=== PATIENT | female | born 2005 | race Caucasian/White ===

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

== ENCOUNTER 2025-01-22 19:11 | Emergency (ER) | payer BC, SELFPAY ==
[2025-01-22 19:12] VITALS: BP 144/90; PULSE 107; RESP 18; TEMP 36.2; O2SAT 99; BMI 35.8
[2025-01-22 21:39] VITALS: BP 152/94; PULSE 93; RESP 18; O2SAT 100
--- NOTE | 2025-01-22 21:55 | CT_ITS ---
PROCEDURE: ABDOMEN/PELVIS W IV CONT ONLY 01/22/2025 REASON FOR EXAM: CONSTIPATION, BRIGHT RED BLOOD PER RECTUM TECHNIQUE: Procedure Code: [id number] Modality: CT Procedure: ABDOMEN/PELVIS W IV CONT ONLY Coronal and Sagittal reconstruction series were provided. CONTRAST: VOLUME: mL One or more dose reduction techniques were used (e.g., Automated exposure control, adjustment of the mA and/or kV according to patient size, use of iterative reconstruction technique. FINDINGS: The visualized lung bases are clear. The liver, gallbladder, pancreas, spleen, adrenal glands, kidneys, and urinary bladder appear unremarkable. The uterus is fluid-filled. Please correlate with the patient's menstrual cycle. A round cystic structure measuring 2.1 cm is noted in the left adnexa, likely an ovarian cyst. Moderate amount of stool within the colon. Fluid levels within the ascending and transverse colon could represent a diarrheal illness. No evidence of a bowel obstruction. No bowel wall thickening. The appendix is visualized and unremarkable. No intraperitoneal free air or free fluid. No abdominal nor pelvic lymphadenopathy. No acute osseous abnormality. No acute fracture. CT/Abdomen/Pelvis W IV Cont ONLY IMPRESSION: 1. Probable left ovarian cyst measuring 2.1 cm. 2. Moderate amount of stool within the colon. Fluid levels within the ascendi ng and transverse colon could represent a diarrheal illness. Reading Location: [id number]
--- NOTE | 2025-01-22 21:59 | EX.ED.DYSGE1 ---
HPI History of Present Illness Chief Complaint: GI Bleed Narrative Narrative: Chief complaint and HPI: 19-year-old female with past medical history of migraines presents for evaluation of bright red blood per rectum and constipation. Patient states on Tuesday and Tuesday she had bright red blood in her bowel movement. States she has not had a bowel movement since Tuesday. This is abnormal for her. She denies any history of constipation. Denies any history of IBS or inflammatory bowel disease. States she has some abdominal pain. She denies any fever, chills, shortness of breath, vomiting, dysuria. Regular menstrual cycles. Does not believe herself to be . States she took that citrate today without any bowel movement. Denies history of abdominal surgeries. Denies daily ibuprofen use. Denies history of ulcers. Review of systems: See HPI Medications: As listed on the chart Allergies: As listed on the chart PFSH: Per chart Vital signs: As listed on the chart. Reviewed. Physical exam: Gen: A&O x3, NAD Head: Normocephalic, atraumatic Eyes: No sclera icterus, conjunctiva clear ENT: Moist mucous membranes CV: RRR, no murmurs Resp: Lungs CTA BL, no w/r/c GI: Abd soft, non-distended, non-tender, no r/r/g Rectal: Normal external examination. No evidence of hemorrhoids or fissures. Normal tone and sensation. No masses, fluctuance, or tenderness. No pain out of proportion. Stool brown on gloved finger. No stool impaction felt. Musc: Full ROM, no deformity Skin: Warm, dry Neuro: Alert, oriented, grossly intact, sensation intact Psych: Cooperative, appropriate mood and affect [facility] Medical History (Updated 01/23/25 @ 00:[address] Aquilino Partida, DO) Migraine Home Medications ?Medication ?Instructions ?Recorded ?Last Taken ?Type escitalopram oxalate 20 mg tablet 20 mg PO DAILY 01/22/25 Unknown History fremanezumab-vfrm 225 mg/1.5 mL 225 mg subcut .monthly 01/22/25 Unknown History subcutaneous auto-injector (Ajovy) topiramate 100 mg tablet 100 mg PO QHS 01/22/25 Unknown History Allergy/AdvReac Type Severity Reaction Status Date / Time No Known Allergies Allergy Verified 01/22/25 19:12 Social History Smoking Status: Never smoker EXAM Physical Exam Const Vital Signs: 01/22/25 19:12 01/22/25 21:39 01/22/25 23:00 Temperature 97.2 F L Temperature Source Temporal Pulse Rate 107 H 93 90 Respiratory Rate 18 18 18 Blood Pressure 144/90 H 152/94 H Blood Pressure Mean 108 113 Pulse Ox 99 100 98 Oxygen Delivery Method Room Air Room Air MDM MDM MDM Narrative Medical decision making narrative: 19-year-old female with past medical history of migraines presents for evaluation of bright red blood per rectum and constipation. Patient states on Tuesday and Tuesday she had bright red blood in her bowel movement. She has been constipated since Tuesday. Mild abdominal pain. Differential diagnosis includes but is not limited to constipation, hemorrhoidal bleeding, diverticulitis, other intra-abdominal pathology. NS bolus ordered. Labs ordered with CT abdomen and pelvis. CBC unremarkable. CMP unremarkable. Lactic acid unremarkable. Lipase unremarkable. Serum negative. UA has bacteria however this is not a clean sample. Patient not endorsing any dysuria. Will send for culture but not treat at this time. Stool occult negative. CT abdomen pelvis pending at this time. Patient signed out to oncoming ED provider. Final disposition pending CT abdomen pelvis results. Impression: 1. Constipation 2. Reported bright red blood per rectum 3. Abdominal pain Lab Data Labs: Laboratory Results - last 24 hr 01/22/25 01/22/25 22:08 23:10 WBC 7.7 RBC 4.47 Hgb 13.0 Hct 39.6 MCV 88.6 MCH 29.1 MCHC 32.8 RDW Std Deviation 42.1 RDW Coeff of Sushma 13.0 Plt Count 415 MPV 9.0 Immature Gran % (Auto) 0.300 Neut % (Auto) 50.9 Lymph % (Auto) 38.1 [place] % (Auto) 8.7 Eos % (Auto) 1.3 Baso % (Auto) 0.7 Absolute Neuts (auto) 3.9 Absolute Lymphs (auto) 2.93 Nucleated RBC % 0 Sodium 141 Potassium 3.8 Chloride 109 H Carbon Dioxide 21.4 Anion Gap 11 BUN 9 Creatinine 0.66 L Estim Creat Clear Calc 186.93 Est GFR (MDRD) Non-Af 130 BUN/Creatinine Ratio 13.9 Glucose 107 H Lactic Acid < 1.0 Calcium 9.5 Total Bilirubin 0.16 AST 20 ALT 21 Alkaline Phosphatase 83 Total Protein 7.5 Albumin 4.4 Globulin 3.1 Albumin/Globulin Ratio 1.4 Lipase 38 Serum , Qual NEGATIVE Urine Color Yellow Urine Clarity Clear Urine pH 6.0 Ur Specific [place] 1.025 Urine Protein 30 H Urine Glucose (UA) Normal Urine Ketones Negative Urine Occult Blood Negative Urine Nitrite Negative Urine Bilirubin Negative Urine Urobilinogen Normal Ur Leukocyte Esterase 100 H Urine RBC 0 SEEN Urine WBC 5-10 SEEN Ur Squamous Epith Cells 5-10 SEEN Ur Transition Epith Cell 0-5 SEEN Urine Bacteria 1+ Urine Mucus 1+ Discharge Plan Triage Chief Complaint: GI Bleed ED Provider: Aquilino Partida Dx/Rx/DC Orders Clinical Impression: Constipation Instructions: ED Constipation (Adult) Prescriptions: No Action escitalopram oxalate 20 mg tablet 20 mg PO DAILY Ajovy Autoinjector 225 mg/1.5 mL auto-injector 225 mg SUBCUT .monthly Patient Comments: [NO ORIGINAL SIG] topiramate 100 mg tablet 100 mg PO QHS Primary Care Provider: Care Physician,No Primary Referrals: Aubree Stoll MD [Non-Staff, Pediatrics] - 3-5 Days Activity Restrictions/Additional Instructions: Follow-up with primary care physician. Recommend [id number] MiraLAX for constipation. Print Language: Romansh Disposition Disposition: Home, Self Care
--- OUTSIDE RECORDS SUMMARY | 2025-01-22 22:05 | XMS RPT_ITS | CCD ---
Author Organization [facility] Care Team Providers [employer] Interpreter Name Role Phone Enoc Foss MD Primary Care Provider Crow Patrick Referring Unavailable Crow Patrick Attending Unavailable Aubree Stoll Primary Care Unavailable Enoc Foss MD Primary Care Provider Yari Dowling MD Primary Care Provider Nitesh YATES, Yari Primary Care Provider Yari Dowling MD Primary Care Prov ider TYESHA FRIEDMAN Attending Unavailable MARLENENTYARI OLIVER Primary Care Unav ailable TYESHA FRIEDMAN Attending Unavailable TYESHA FRIEDMAN Referring Unavailable MCINTURF, YARI CABELLO Primary Care Unav ailable ROGER AUGUST Attending Unavailable SELF Referring Unavailable MCINTURF, YARI CABELLO Primary Care Unav ailable SELF Referring Unavailable MARLENENTMELODY, YARI CABELLO Primary Care Unav ailable DEL MARIE Attending Unavailable TYESHA FRIEDMAN Referring Unavailable MCINTURF, YARI CABELLO Primary Care Unav ailable GORDON TARIQ MD Admitting Unavailable GORDON TARIQ MD Attending Unavailable GORDON TARIQ MD Primary Care Unavailable NO, DOCTOR ON Consulting Unavailable BAYRON CHANEY Admitting Unavailable BAYRON CHANEY Attending Unavailable BAYRON CHANEY Primary Care Unavailable Allergies Allergy Classification Reported Allergen(s) Allergy Type Date of Onset Reaction(s) Facility (20 sources) Soap; Translations: [SOAP] Drug Intolerance 6 Itching [facility] Medications Current Medications Medication Drug Class(es) Dates Sig (Normalized) Sig (Original) amoxicillin 875 mg / clavulanate 125 mg oral tablet (3 sources) Penicillin-class Antibacterial Start: 05-26-2022 End: 06-09-2022 take 1 tablet by mouth twice daily amoxicillin-clavul anic acid (AUGMENTIN) 875-125 mg per tablet Take 1 tablet by mouth twice daily for 14 days. 28 tablet 0 05/26/2022 06/09/2022 Active Comment on above: Take 1 tablet by january twice daily for 14 days. eletriptan 40 mg oral tablet (4 sources) Serotonin-1b and Serotonin-1d Receptor Agonist Start: 08-20-2024 take 1 tablet by mouth every two hours as needed for headache eletriptan (RELPAX) 40 mg tablet Indications: Chronic migraine with aura without status migrainosus, not intractable Take 1 tablet by mouth as needed. TAKE AT ONSET OF MIGRAINE HEADACHE. May repeat in 2 hours if needed. Max 80 mg per day. 12 tablet 11 08/20/2024 Active escitalopram 10 mg oral tablet (20 sources) Serotonin Reuptake Inhibitor Start: 07-14-2023 take 2 tablets by mouth once daily escitalopram oxalate (LEXAPRO) 10 mg tablet Take 2 tablets by mouth once daily. 07/14/2023 Active Start: 04-13-2022 End: 07-14-2023 take 1 tablet by mouth once daily escitalopram oxalate (LEXAPRO) 10 mg tablet Take 1 tablet by mouth once daily. 0 04/13/2022 07/14/2023 Discontinued Comment on above: [facility] daily. fluticasone propionate 0.05 mg/actuat metered dose nasal spray (12 sources) Corticosteroid Start : 03-24 take 2 spray(s) by mouth once daily fluticasone (FLONASE) 50 mcg/actuation nasal spray Use 2 Sprays in each nostril once daily. Rinse mouth after use. 1 Each 03/24/2023 Active Comment on above: Use 2 Sprays in each nostril once daily. Rinse mouth after use. 1.5 ml fremanezumab-vfrm 150 mg/ml auto-injector (4 sources) Start : 08-20 End: 08-20 inject 1.5 mL by subcutaneous injection every month in the morning fremanezumab-vfrm (AJOVY AUTOINJECTOR) 225 mg/1.5 mL auto-injector Indications: Chronic migraine with aura without status migrainosus, not intractable Inject 1.5 mL subcutaneously once every month. Do not shake. 4.5 mL 3 11/23/2024 8:48 AM EDT 08/20/2024 08/20/2025 Active methylPREDNISolone (1 source) Corticosteroid Start : 07-13 End: 07-19 methylPREDNISolone (MEDROL, TATYANA,) 4 mg Dose-Pack Take as directed on package 21 tablet 0 07/14/2023 07/20/2023 Active Comment on above: Take as directed on package metoclopramide 10 mg oral tablet (4 sources) Dopamine-2 Receptor Antagonist Start : 08-20 take 1 tablet by mouth three times daily as needed metoclopramide HCl (REGLAN) 10 mg tablet Indications: Chronic migraine with aura without status migrainosus, not intractable Take 1 tablet by mouth three times a day as needed. 30 tablet 11 08/20/2024 Active topiramate 100 mg oral tablet (20 sources) Start : 03-17 End: 04-06 take 1 tablet by mouth once daily at bedtime topiramate (TOPAMAX) 100 mg tablet Take 1 tablet by mouth daily at bedtime. 90 tablet 3 04/06/2024 04/06/2025 Active Start: 09-07-2022 End: 12-28-2022 take 1 tablet by mouth once daily at bedtime topiramate (TOPAMAX) 50 mg tablet Take 1 tablet by mouth daily at bedtime. Topamax 75 mg daily. 30 tablet 5 12/28/2022 Active Start: 09-07-2022 End: 12-28-2022 take 1 tablet by mouth once daily at bedtime topiramate (TOPAMAX) 25 mg tablet Take 1 tablet by mouth daily at bedtime. Take 75 mg daily. 30 tablet 5 12/28/2022 Active Start: 08-19-2022 End: 09-07-2022 take 1 tablet by mouth twice daily topiramate (TOPAMAX) 25 mg tablet Take 1 tablet by mouth twice daily. 60 tablet 0 08/19/2022 09/07/2022 Discontinued Start: 05-13-2022 End: 07-20-2022 take 1 tablet by mouth twice daily topiramate (TOPAMAX) 25 mg tablet Take 1 tablet by mouth twice daily. 60 tablet 0 06/15/2022 07/20/2022 Discontinued Start: 04-13-2022 End: 05-13-2022 take 1 tablet by mouth once daily topiramate (TOPAMAX) 25 mg tablet Take 1 tablet by mouth once daily. 30 tablet 0 04/13/2022 05/13/2022 Active Comment on above: Take 1 tablet by january th once daily. Take 1 tablet by january th twice daily. Take 1 tablet by january th daily at bedtime. Topamax 75 mg daily. Take 1 tablet by january th daily at bedtime. Take 75 mg daily. Take 1 tablet by january th daily at bedtime. Completed/Discontinued Medications Medication Drug Class(es) Dates Sig (Normalized) Sig (Original) amoxicillin 875 mg oral tablet (3 sources) Penicillin-class Antibacterial Start: 05-17-2022 End: 05-31-2022 take 1 tablet by mouth twice daily amoxicillin (AMOXIL) 875 mg tablet Take 1 tablet by mouth twice daily for 14 days. 28 tablet 0 05/17/2022 05/26/2022 Discontinued Comment on above: Take 1 tablet by january th twice daily for 14 days. benzonatate 100 mg oral capsule (1 source) Non-narcotic Antitussive Start: 03-24-2023 End: 07-14-2023 take 2 capsules by mouth every eight hours as needed benzonatate (TESSALON PERLES) 100 mg capsule Take 2 capsules by mouth three times a day as needed. 30 capsule 0 03/24/2023 07/14/2023 Discontinued Comment on above: Take 2 capsules by out three times a day as needed. FLUoxetine 20 mg oral capsule (2 sources) Serotonin Reuptake Inhibitor Start: 01-20-2021 End: 04-13-2022 take 1 capsule by mouth once daily FLUoxetine (PROZAC) 20 mg capsule Take 1 capsule by mouth once daily. 30 capsule 0 01/20/2021 04/13/2022 Discontinued Comment on above: Take 1 capsule by mo [facility] once daily. 2 ml ketorolac tromethamine 30 mg/ml injection (1 source) Nonsteroidal Anti-inflammatory Drug, Cyclooxygenase Inhibitor Start: 05-27-2022 End: 05-27-2022 keTORolac 60 mg injection (TORADOL) naratriptan 2.5 mg oral tablet (2 sources) Serotonin-1b and Serotonin-1d Receptor Agonist Start: 12-28-2022 End: 07-14-2023 naratriptan (AMERGE) 2.5 mg tablet Take 1 tablet (2.5 mg) by mouth as needed. 8 tablet 3 12/28/2022 07/14/2023 Discontinued Comment on above: Take 1 tablet (2.5 m g) by mouth as needed. rimegepant 75 mg disintegrating oral tablet (7 sources) Start: 03-17-2023 End: 05-30-2024 take 1 tablet by mouth once daily as needed rimegepant (NURTEC ODT) 75 mg disintegrating tablet Take 1 tablet by mouth once daily as needed (migraine). 16 tablet 11 03/17/2023 05/30/2024 Discontinued Comment on above: Take 1 tablet by january th once daily as needed (migraine). rizatriptan 10 mg oral tablet (8 sources) Serotonin-1b and Serotonin-1d Receptor Agonist Start: 09-07-2022 End: 09-21-2022 take 1 tablet by mouth every two hours as needed for headache rizatriptan (MAXALT) 10 mg tablet Take 1 tablet by mouth as needed for migraine headache (see administration instructions). Take one(1) tablet at onset of headache. May repeat after 2 hours. Do not exceed 30 mg per day. 8 tablet 1 09/07/2022 09/21/2022 Discontinued Start: 06-01-2022 End: 09-21-2022 take 1 tablet by mouth once daily as needed rizatriptan (MAXALT [employer]) 5 mg disintegrating tablet Take 1 tablet by mouth once daily as needed. 8 tablet 1 06/01/2022 09/21/2022 Discontinued Comment on above: Take 1 tablet by january th once daily as needed. Take 1 tablet by january th as needed for migraine headache (see administration instructions). Take one(1) tablet at onset of headache. May repeat after 2 hours. Do not exceed 30 mg per day. SUMAtriptan 25 mg oral tablet (4 sources) Serotonin-1b and Serotonin-1d Receptor Agonist Start: 09-22-19 End: 12-29-19 take 1 tablet by mouth every two hours SUMAtriptan (IMITREX) 25 mg tablet Indications: Migraine without status migrainosus, not intractable, unspecified migraine type Take 1 tablet by mouth as directed. START AT ONSET OF HEADACHE. MAY REPEAT DOSE AFTER 2 HOURS. 9 tablet 1 09/21/2022 12/28/2022 Discontinued Comment on above: Take 1 tablet by january as directed. START AT ONSET OF HEADACHE. MAY REPEAT DOSE AFTER 2 HOURS. ubrogepant 50 mg oral tablet (3 sources) Start: 05-30-19 End: 08-21-19 ubrogepant (UBRELVY) 50 mg tablet Indications: Chronic migraine with aura without status migrainosus, not intractable Take 1 tab as needed at onset of migraine. May repeat dose at 2 hours if needed. Max 200 mg per 24 hours. 16 tablet 5 05/30/2024 08/20/2024 Discontinued (Not on Formulary) Problems Active Problems Problem Classification Problem Date Documented Da te Episodic/Chronic Anxiety disorders (20 sources) Anxiety; Translations: [Anxiety disorder, unspecified] Onset: 02-03-2019 02-03-2019 Chronic Headache; including migraine (20 sources) Migraine; Translations: [Migraine, unspecified, not intractable, without status migrainosus] Onset: 03-17-2023 Chronic Headache; including migraine (2 sources) Headache; Translations: [Nonintractable headache, unspecified chronicity pattern, unspecified headache type] Episodic Mood disorders (20 sources) Depressive disorder; Translations: [Depression] Onset: 07-24-2020 07-24-2020 Chronic Nonmalignant breast conditions (1 source) Fibrocystic changes of bilateral breasts; Translations: [Diffuse cystic mastopathy of right breast] 04-24-2024 Chronic Nonmalignant breast conditions (3 sources) Lump in upper inner quadrant of right breast; Translations: [Unspecified lump in the right breast, upper inner quadrant] 04-24-2024 Episodic Other aftercare (1 source) Long-term current use of drug therapy; Translations: [Other fpc (current) drug therapy] 05-30-2024 Episodic Other lower respiratory disease (1 source) Cough; Translations: [Acute cough] 03-24-2023 Episodic Other nutritional; endocrine; and metabolic disorders (1 source) Overweight; Translations: [Overweight] 04-24-2024 Episodic Other upper respiratory infections (2 sources) Bacterial sinusitis; Translations: [Chronic sinusitis, unspecified] Onset: 01-30-2023 Chronic Other upper respiratory infections (1 source) Acute bacterial sinusitis; Translations: [Acute sinusitis, unspecified] Episodic Otitis media and related conditions (1 source) Acute serous otitis media of bilateral ears; Translations: [Acute serous otitis media, bilateral] Episodic Residual codes; unclassified (1 source) Family history of breast cancer; Translations: [Family history of malignant neoplasm of breast] 04-24-2024 Episodic Unclassified (1 source) Chronic migraine with aura without status migrainosus, not intractable; Translations: [Chronic migraine with aura without status migrainosus, not intractable] Onset: 08-20-2024 Past or Other Problems Problem Classification Problem Date Documented Da te Episodic/Chronic Abdominal pain (20 sources) Abdominal pain; Translations: [Unspecified abdominal pain] Onset: 02-03-2019 02-03-2019 Episodic Conditions associated with dizziness or vertigo (20 sources) Dizziness; Translations: [Dizziness and giddiness] Onset: 02-03-2019 02-03-2019 Episodic Malaise and fatigue (20 sources) Malaise and fatigue; Translations: [Other malaise] Onset: 02-03-2019 02-03-2019 Episodic Other nutritional; endocrine; and metabolic disorders (20 sources) Decrease in appetite; Translations: [Anorexia] Onset: 02-03-2019 02-03-2019 Episodic Results Test Name Value Interpretation Reference Range Facility C-REACTIVE PROTEINon 025 CRP 0.36 mg/dl Normal 0.00 - 0.90 [facility] Comment on above: Performed By: #### 2 [id number] #### [facility],[address] [place] [address] 74511 CBC + DIFFon 01-21-2025 Baso # 0.04 x10EE3/UL Normal 0.00 - 0.10 [facility] Comment on above: Performed By: #### 2 [id number] #### [facility],[address] [place] [address] Basophils/100 WBC (Bld) 0.5 % Normal 0.0 - 2.0 [facility] Comment on above: Performed By: #### 2 [id number] #### [facility],[address] [place] [address] CBC + DIFF Normal [facility] Comment on above: Result Comment: CBC- COMPLETE BLOOD COUNT Performed By: #### 2 [id number] #### [facility],[address] [place] [address] EO # 0.13 x10EE3/UL Normal 0.00 - 0.50 [facility] Comment on above: Performed By: #### 2 [id number] #### [facility],[address] [place] [address] Eosinophils/100 WBC (Bld) 1.6 % Normal 0.0 - 7.0 [facility] Comment on above: Performed By: #### 2 [id number] #### [facility],[address] [place] [address] Erythrocyte distribution width (RBC) [Ratio] 13.4 % Normal 12.0 - 15.6 [facility] Comment on above: Performed By: #### 2 [id number] #### [facility],[address] [place] [address] Hematocrit (Bld) [Volume fraction] 39.2 % Normal 34.0 - 46.0 [facility] Comment on above: Performed By: #### 2 [id number] #### [facility],[address] [place] [address] Hemoglobin (Bld) [Mass/Vol] 13.3 g/dL Normal 12.0 - 16.0 [facility] Comment on above: Performed By: #### 2 [id number] #### [facility],[address] [place] [address] Lymph # 2.39 x10EE3/UL Normal 0.80 - 2.80 [facility] Comment on above: Performed By: #### 2 [id number] #### [facility],[address] [place] [address] 85575 Lymphocytes/100 WBC (Bld) 29.2 % Normal 20.0 - 45.0 [facility] Comment on above: Performed By: #### 2 [id number] #### [facility],[address] [place] [address] MANUAL DIFF N/A Normal [facility] Comment on above: Performed By: #### 2 [id number] #### [facility],[address] [place] [address] MCH (RBC) [Entitic mass] 30 pg Normal 27 - 33 [facility] Comment on above: Performed By: #### 2 [id number] #### [facility],[address] [place] [address] MCHC 34 X10 3 Normal 32 - 36 [facility] Comment on above: Performed By: #### 2 [id number] #### [facility],[address] [place], [place] [phone] MCV (RBC) [Entitic vol] 87 fL Normal 80 - 99 [facility] Comment on above: Performed By: #### 2 [id number] #### [facility],[address] [place] [address] Pepin # 0.66 x10EE3/UL Normal 0.20 - 1.00 [facility] Comment on above: Performed By: #### 2 [id number] #### [facility],[address] [place], [place] [id number] MONOS % 8.1 % Normal 0.0 - 10.0 [facility] Comment on above: Performed By: #### 2 [id number] #### [facility],[address] [place] [address] 18598 Morphology Nic (Bld) [Interp] N/A Normal [facility] Comment on above: Performed By: #### 2 [id number] #### [facility],[address] [place] [address] 14450 Neut # 4.95 x10EE3/UL Normal 1.50 - 7.10 [facility] Comment on above: Performed By: #### 2 [id number] #### [facility],[address] [place] [address] 82884 Neutrophils/100 WBC (Bld) 60.6 % Normal 46.0 - 76.0 [facility] Comment on above: Performed By: #### 2 [id number] #### [facility],[address] [place] [address] 42951 PLATELET 405 x10EE3/UL Normal 150 - 450 [facility] Comment on above: Performed By: #### 2 [id number] #### [facility],[address] [place] [address] 87340 Platelet mean volume (Bld) [Entitic vol] 7.1 fL Normal 6.6 - 10.5 [facility] Comment on above: Result Comment: AUTO MATED DIFFERENTIAL Performed By: #### 2 [id number] #### [facility],[address] [place] [address] 19010 RBC 4.49 x 10EE6/UL Normal 4.10 - 5.30 [facility] Comment on above: Performed By: #### 2 41509 #### [facility],[address] [place] [address] 22324 WBC 8.2 x 10EE3/UL Normal 4.5 - 10.8 [facility] Comment on above: Performed By: #### 2 96201 #### [facility],[address] [place] [address] 57301 CMP with eGFRon 01-21-2025 AGE 19 years Normal [facility] Comment on above: Performed By: #### 2 [id number] #### [facility],[address] [place] [address] 33909 Albumin [Mass/Vol] 3.7 g/dL Normal 3.4 - 5.0 [facility] Comment on above: Performed By: #### 2 25656 #### [facility],[address] [place] [address] 57600 Albumin/Globulin [Mass ratio] 1.1 {ratio} Normal 0.9 - 1.6 [facility] Comment on above: Performed By: #### 2 [id number] #### [facility],[address] [place] [address] 15757 ALK PHOS 82 U/L Normal 46 - 116 [facility] Comment on above: Performed By: #### 2 02600 #### [facility],[address] [place] [address] 76735 ALT [Catalytic activity/Vol] 24 U/L Normal 16 - 63 [facility] Comment on above: Performed By: #### 2 61109 #### [facility],[address] [place] [address] 67807 Anion gap [Moles/Vol] 12 mmol/L Normal 10 - 20 [facility] Comment on above: Performed By: #### 2 [id number] #### [facility],[address] [place] [address] 38936 AST [Catalytic activity/Vol] 14 U/L Normal 13 - 39 [facility] Comment on above: Performed By: #### 2 [id number] #### [facility],[address] [place] [address] 56105 B/C RATIO 14 ratio Normal 0 - 30 [facility] Comment on above: Performed By: #### 2 69300 #### [facility],[address] [place] [address] 83457 Bilirubin [Mass/Vol] 0.3 mg/dL Normal 0.2 - 1.0 [facility] Comment on above: Performed By: #### 2 [id number] #### [facility],[address] [place] [address] 33717 Calcium [Mass/Vol] 8.9 mg/dL Normal 8.5 - 10.1 [facility] Comment on above: Performed By: #### 2 91328 #### [facility],[address] [place] [address] 05823 Chloride [Moles/Vol] 107 mmol/L Normal 98 - 107 [facility] Comment on above: Performed By: #### 2 [id number] #### [facility],[address] [place] [address] 50931 CMP with eGFR Normal [facility] Comment on above: Result Comment: COMP REHENSIVE METABOLIC PANEL Performed By: #### 2 [id number] #### [facility],[address] [place] [address] 39809 CO2 [Moles/Vol] 25.1 mmol/L Normal 21.0 - 32.0 [facility] Comment on above: Performed By: #### 2 91074 #### [facility],[address] [place], [place] [phone] Creatinine [Mass/Vol] 0.59 mg/dL Normal 0.55 - 1.02 [facility] Comment on above: Performed By: #### 2 76714 #### [facility],[address] [place] [address] 49339 GFR/1.73 sq M.predicted among non-blacks MDRD (S/P/Bld) [Vol rate/Area] mL/min/{1.73_m2} Normal 60 - 999 [facility] Comment on above: Performed By: #### 2 [id number] #### [facility],[address] [place], [place] [phone] Result Comment: ACCO RDING TO THE NATIONAL KIDNEY DISEASE EDUCATION PROGRAM(NKDE), A NORMAL eGFR IS A VALUE GREATER THAN OR EQUAL TO 60 ML/MIN/1.73 SQ METERS. CHRONIC KIDNEY DISEASE: <60mL/MIN/1.73 SQ METERS KIDNEY FAILURE: <15mL/MIN/1.73 SQ METERS THIS TEST SHOULD ONLY BE USED FOR PATIENTS 18 YEARS OF AGE AND OLDER. Globulin (S) [Mass/Vol] 3.5 g/dL Normal 1.5 - 3.8 [facility] Comment on above: Performed By: #### 2 [id number] #### [facility],[address] [place] [address] 72398 Glucose [Mass/Vol] 92 mg/dL Normal 74 - 106 [facility] Comment on above: Performed By: #### 2 77916 #### [facility],[address] [place] [address] 75963 Potassium [Moles/Vol] 3.9 mmol/L Normal 3.5 - 5.1 [facility] Comment on above: Performed By: #### 2 53710 #### [facility],[address] [place] [address] 45184 Protein [Mass/Vol] 7.2 g/dL Normal 6.4 - 8.2 [facility] Comment on above: Performed By: #### 2 47700 #### [facility],[address] [place] [address] 59874 Sodium [Moles/Vol] 140 mmol/L Normal 136 - 145 [facility] Comment on above: Performed By: #### 2 37976 #### [facility],[address] [place] [address] 21028 Urea nitrogen [Mass/Vol] 8 mg/dL Normal 7 - 18 [facility] Comment on above: Performed By: #### 2 [id number] #### [facility],[address] [place], [place] [phone] CT ABDOMEN/PELVIS [facility] [address] ABDOMEN/PELVIS [address] ? [place] [address] ? Patient: ERON VILLATORO Phone#: : 2005 Age: 19 Gender: F Pt. Type: ER Account: [id number] Location: [facility] Ordering: PRICILA MCCOY Exam Date: 01/21/2025/10:35 Family Phys: Charge Code: 404351 Physician: Baldwin Order #: [id number] Dose#: 28.20 mGy PROCEDURE: CT ABDOMEN/PELVIS WITH CONTRAST COMPARISON: [facility], CT, ABDOMEN/PELVIS W CON, 06/20/2017, 0:37. INDICATIONS: ABDOMINAL PAIN TECHNIQUE: After obtaining the patient's consent, CT images were created with non-ionic intravenous contrast material. All CT scans at this facility use dose modulation, iterative reconstruction, and/or weight based dosing when appropriate to reduce radiation dose to as low as reasonably achievable. IV CONTRAST: Omnipaque 350,80ml TOTAL DOSE: 28.20 CTDIvol(mGy) FINDINGS: LIVER: Normal. No enlargement, atrophy, abnormal density, or significant focal lesion. BILIARY: Gallbladder is present. PANCREAS: Normal. No lesion, fluid collection, ductal dilatation, or atrophy. SPLEEN: Normal. No enlargement or focal lesion. KIDNEYS: Kidneys enhance and excrete contrast symmetrically. No hydronephrosis. ADRENALS: Normal. No mass or enlargement. AORTA/VASCULAR: No aortic aneurysm RETROPERITONEUM: Normal. No mass or adenopathy. BOWEL/MESENTERY: No bowel obstruction or dilatation. Moderate to large stool burden. The appendix is unremarkable in size ABDOMINAL WALL: Normal. No mass or hernia. URINARY BLADDER: Normal. No visible focal wall thickening, lesion, or calculus. PELVIC NODES: Normal. No adenopathy. PELVIC ORGANS: Uterus is present. Left adnexal cyst measuring 2.4 cm. Right adnexa is unremarkable. BONES: Normal. No bony lesion or fracture. LUNG BASES: Normal. No visible pulmonary or pleural disease. OTHER: Negative. Continued Report - Page 2 of 2 Patient: ERON VILLATOORShannon Phone#: : 2005 Age: 19 Gender: F Pt. Type: ER Account: [id number] Location: 2 Ordering: PRICILA MCCOY Exam Date: 01/21/2025/10:35 Family Phys: Charge Code: 142113 Physician: Baldwin Order #: [id number] Dose#: 28.20 mGy CONCLUSION: 1. No acute intra-abdominal or pelvic abnormality 2. Constipation Dictated by: Eron Bronson MD on 01/21/2025 at 10:55 Approved by: Eron Bronson MD on 01/21/2025 at 11:05 Normal [facility] LACTATEon 01-21-2025 Lactate [Moles/Vol] 0.5 mmol/L Normal 0.4 - 2.0 [facility] Comment on above: Performed By: #### 2 [id number] #### [facility],[address] [place] [address] LIPASEon 01-21-2025 Lipase [Catalytic activity/Vol] 27.0 U/L Normal 15.0 - 78.0 [facility] Comment on above: Result Comment: *PLE ASE NOTE THAT RANGES FOR LIPASE HAVE CHANGED OF 04/01/23 DUE TO AN ASSAY UPDATE BY THE LAMINATING MACHINE OFFBEARER.THE NEW ASSAY RANGE IS 6-250 U/L, WITH A REFERENCE RANGE OF 16-77 U/L. Performed By: #### 2 [id number] #### [facility],[address] [place] [address] SERUM QUALon 01-21 EXTERNAL QC DONE? YES Normal [facility] Comment on above: Performed By: #### 2 64219 #### [facility],[address] [place] [address] INTERNAL QC PASS Normal [facility] Comment on above: Performed By: #### 2 55413 #### [facility],[address] [place] [address] SER Negative Normal NEGATIVE [facility] Comment on above: Performed By: #### 2 64444 #### [facility],[address] [place] [address] TROPONINon 01-21-2025 HS TROPONIN 5.2 pg/mL Normal 0.0 - 51.4 [facility] Comment on above: Performed By: #### 2 39395 #### [facility],[address] [place], [place] [id number] URINALYSISon 01-21-2025 Amorphous 1+ Normal [facility] Comment on above: Performed By: #### 2 16733 #### [facility],[address] [place] [address]60 Bacteria 1+ Normal [facility] Comment on above: Performed By: #### 2 68017 #### [facility],[address] [place] [address] Bilirubin Ql (U) Negative Normal NORMAL: NEGATIVE [facility] Comment on above: Performed By: #### 2 35068 #### [facility],[address] [place] [address]2622 Casts NONE Normal [facility] Comment on above: Performed By: #### 2 62464 #### [facility],[address] [place], [place] [id number] Clarity (U) sl.cloudy Normal NORMAL: CLEAR [facility] Comment on above: Performed By: #### 2 99402 #### [facility],[address] [place], [place] [id number] Color (U) breanna Normal NORMAL: YELLOW [facility] Comment on above: Performed By: #### 2 26144 #### [facility],[address] [place] [address]008 Crystals LM Nom (Urine sed) NONE Normal [facility] Comment on above: Performed By: #### 2 32924 #### [facility],[address] [place] [address] 81801 Epi Cells MANY Normal [facility] Comment on above: Performed By: #### 2 94091 #### [facility],[address] [place] [address]004 Glucose Ql (U) NORM Normal NORMAL: NORMAL [facility] Comment on above: Performed By: #### 2 05816 #### [facility],[address] [place] [address]2438 Hemoglobin Ql (U) Negative Normal NORMAL: NEGATIVE [facility] Comment on above: Performed By: #### 2 03855 #### [facility],[address] [place] [address] 17014 Ketone Negative Normal NORMAL: NEGATIVE [facility] Comment on above: Performed By: #### 2 51341 #### [facility],[address] [place] [address] 52546 Leukocytes 100 Abnormal NORMAL: NEGATIVE [facility] Comment on above: Performed By: #### 2 49516 #### [facility],[address] [place] [address] 17754 Mucous 1+ Normal [facility] Comment on above: Performed By: #### 2 88187 #### [facility],[address] [place] [address] 14523 Nitrite Ql (U) Negative Normal NORMAL: NEGATIVE [facility] Comment on above: Performed By: #### 2 88586 #### [facility],[address] [place] [address] 93394 pH (U) 6.5 [pH] Normal NORMAL: 5.0-8.0 [facility] Comment on above: Performed By: #### 2 47866 #### [facility],[address] [place] [address] Protein Ql (U) Negative Normal NORMAL: NEGATIVE [facility] Comment on above: Performed By: #### 2 54992 #### [facility],[address] [place] [address] 87973 Rbc 0-5 Normal 0-3/hpf [facility] Comment on above: Performed By: #### 2 01446 #### [facility],[address] [place] [address] 17939 Sp [place] 1.010 Normal NORMAL: 1.010-1.030 [facility] Comment on above: Performed By: #### 2 26727 #### [facility],[address] [place] [address] 62862 Specimen Type UNSPECIFIED Normal [facility] Comment on above: Performed By: #### 2 79716 #### [facility],[address] [place], [place] [phone] Urinalysis dipstick W Reflex Microscopic panel (U) SEE BELOW Normal [facility] Comment on above: Result Comment: MICR OSCOPIC Performed By: #### 2 88371 #### [facility],[address] [place] [address] 14283 Urobilinog NORM Normal NORMAL: NORMAL [facility] Comment on above: Performed By: #### 2 76047 #### [facility],[address] [place] [address] 08032 Wbc 11-15 Normal 0-5/hpf [facility] Comment on above: Performed By: #### 2 77012 #### [facility],[address] [place] [address] 42750 Yeast 1+ Normal [facility] Comment on above: Performed By: #### 2 16763 #### [facility],[address] [place], [place] [id number] CNOVon 11-23-2024 CNOV Office Visit (AZMNS2 ) ERON VILLATORO ([id number]) 5 F Date Time Provider Department 11/23/24 9:30 AM TYESHA FRIEDMAN [facility] During your visit today, we recorded the following information about you: Pulse Blood pressure Weight Last Period 70/minute 125/72 114.2 kg 11/19/24 Tyesha Friedman MD 11/23/2024 9:39 AM Signed [facility] - Follow up Visit Recording using [employer] software for draft documentation of the visit was discussed with the patient/authorized retail account representative; all questions welcomed and answered. Patient/authorized retail account representative agreed to proceed Chief Complaint: migraine TAMICA 3 months ago. Interval Headache Hx: Eron Villatoro is a 19-year-old female presenting for follow-up on migraine management. Eron reports a significant reduction in migraine frequency since starting Ajovy, with episodes decreasing from 26 days per month to approximately 12 days per month. She has completed three treatments and notes a 50% improvement. However, she continues to experience severe pain during episodes, rating it as a 7/10. Migraines still necessitate bed rest about twice a month, a reduction from once a week previously. She identifies menstruation as a primary trigger but does not report auras and is not on control. For acute management, she uses eletriptan, which she finds effective and free of side effects. She also takes Reglan for nausea and is on Topamax and Migravent supplement of B2, Mg, CoQ10 for migraine prevention. She believes Topamax has been beneficial and wishes to continue it. Additionally, she takes Lexapro 20 mg daily for mood. Eron does not endorse any new health problems and reports no significant changes in family or social history. Headache 1 Location: bilateral, temporal and frontal Quality/Description: throbbing Associated Symptoms: Photophobia: yes Phonophobia: yes Nausea: yes - on occasion Vomiting: yes - rare Other symptoms: rhinorrhea and lacrimation (flushed in face) Worse with activity: yes Number of migraine headache days/month: 12 Migraine headache severity: 7 (debilitating 2 days a month)/10 Number of NON-migraine headache days/month: 0 Total Number of headache days/month: 12 Number of headache free days/month: 4 Current preventive treatment: Topamax and Migravent; Ajovy; Lexapro for her mood Current abortive treatment: Eletriptan + Reglan Days missed from work or school in the last month: 1 days I have reviewed the [employer] Status Assessment responses and discussed these with the patient: no, patient did not complete Tyesha Friedman MD HEADACHE SCORES: 07/14/2023 05/29/2024 Headache Questions ER visits since last office visit: 0 1 Hospital stays since last office visit 0 0 Limited ADLs in the last month: 3 3 Days missed from work or school in the last month: 1 1 Days headache pain free in the last month: 19 14 Days per month with ALL of the following symptoms - decreased productivity, light sensitivity and nausea: 0 2 Initial improvement of headache after botox injection at last visit: Not applicable, I did not have a botox injection at my last visit Not applicable, I did not have a botox injection at my last visit PRN medication usage in the last month: 4 5 Patient impression of improvement since last visit: Minimally improved Minimally improved 07/14/2023 05/29/2024 HIT-6 HIT-6 67 (Severe impact) 65 (Severe impact) 07/14/2023 05/29/2024 LEONA - 2/7 SCORES LEONA-2 Score 6 4 LEONA-7 Score 20 13 07/14/2023 05/29/2024 Migraine Specific QOL - Higher scores indicate better HRQL Role Function-Restrictive Transformed Score (range: 0-100) 34.29 34.29 Role Function-Preventive Transformed Score (range: 0-100) 60 35 Emotional Function Transformed Score (range: 0-100) 20 20 07/14/2023 05/30/2024 PHQ-9 Score 17 8 Data saved with a previous flowsheet row definition Studies to Review: No New Health Issues: No New Social History: No New Family History: No PHYSICAL EXAMINATION: Vital Signs: BP 125/72 Pulse 70 Wt 251 lb 12.3 oz (114.2kg) SpO2 100% LMP 11/19/2024 General: Alert and oriented. Answered questions in an appropriate manner. Made eye contact without apparent pain behavior. HEENT: Head is normocephalic and features were symmetric. Cranial Nerves: II: Pupils: symmetric Ill,lV,Vl: nl eye movements VII: Face symmetric. Motor: Bulk: Normal for age and gender. No abnormal movements were appreciated. Gait: Unassisted, normal Normal stride length, base, and normal arm swing. Impression/Plan: Eron Villatoro is a 19 year old female seen today for followup. 1. Chronic migraine with aura without status migrainosus, not intractable (G43.E09) 2. Migraine without aura and without status migrainosus, not intractable (G43.009) 3. Menstrual migraine without status migrainosus, not intractable (G43.829) (more content not included)... Normal [facility] 11-22-2024 [facility] Telephone ([facility]) ERON VILLATORO ([id number]) 5 F Date Time Provider Department 11/22/24 CARYLOZANIL MELCHORA [facility] During your visit today, we recorded the following information about you: Thea May 11/22/2024 11:21 AM Signed Ambulatory Pharmacy Prior Authorization Note Provider Intervention Required?: No - Pharmacy completed on your behalf. Was the PA documented within the ePA workqueue?: Yes Drug: MANJU View the status history of the prior authorization in the Auth Tab within Chart Review Additional Information: PLEASE NOTE: Pt will need follow up office visit to review/document efficacy and tolerability of treatment before prior auth expiration. Please ensure a future follow up appt is scheduled with your patient. This will ensure no interruption in patient's ability to obtain medication refills. Prescriptions will now be processed through [facility] for determination of next steps. For questions relating to this submission, please contact [facility] at [phone] Tho Vela 12/05/2024 4:30 PM Signed Rec'd approval via fax. Effective 11/22/24-11/22/25 Auth #: [id number] Approval scanned to chart via [employer] Patient informed via [employer]. Allergies As of Date: 11/22/2024 Noted Allergy Reaction SOAP 02/16/2016 9 - Itching Comments: Dove soap (itching under legs) Date Reviewed: 08/20/2024 Reviewed by: Ziggy Parekh MA - Fully Assessed Reason for Visit: Insurance Authorization [[id number]] Cmt: MANJU NUNES [Other] Prescriptions as of 12/05/2024 - eletriptan (RELPAX) 40 mg tablet Take 1 tablet by mouth as needed. TAKE AT ONSET OF MIGRAINE HEADACHE. May repeat in 2 hours if needed. Max 80 mg per day. - metoclopramide HCl (REGLAN) 10 mg tablet Take 1 tablet by mouth three times a day as needed. - fremanezumab-vfrm (AJOVY AUTOINJECTOR) 225 mg/1.5 mL auto-injector Inject 1.5 mL subcutaneously once every month. Do not shake. - topiramate (TOPAMAX) 100 mg tablet Take 1 tablet by mouth daily at bedtime. - escitalopram oxalate (LEXAPRO) 10 mg tablet Take 2 tablets by mouth once daily. - fluticasone (FLONASE) 50 mcg/actuation nasal spray Use 2 Sprays in each nostril once daily. Rinse mouth after use. Problem List As Of Date 11/22/2024 Noted Resolved Anxiety [F41.9] 02/03/2019 Malaise and fatigue [R53.81, R53.83] 02/03/2019 Dizzy [R42] 02/03/2019 Abdominal pain [R10.9] 02/03/2019 Decreased appetite [R63.0] 02/03/2019 Depression [F32.A] 07/24/2020 Chronic migraine without aura, intractable, wit*03/17/2023 Encounter Status:Closed by THEA MAY on 11/22/24 [facility] 08-21-2024 [facility] Telephone ([facility]) ERON VILLATORO ([id number]) 5 F Date Time Provider Department 08/21/24 THEA MAY [facility] During your visit today, we recorded the following information about you: Thea May 08/21/2024 10:52 AM Signed Ambulatory Pharmacy Prior Authorization Note Provider Intervention Required?: No - Pharmacy completed on your behalf. Was the PA documented within the ePA workqueue?: Yes View the status history of the prior authorization in the Auth Tab within Chart Review Additional Information: PLEASE NOTE: Pt will need follow up office visit to review/document efficacy and tolerability of treatment before prior auth expiration. Please ensure a future follow up appt is scheduled with your patient. This will ensure no interruption in patient's ability to obtain medication refills. Prescriptions will now be processed through [facility] for determination of next steps. For questions relating to this submission, please contact [facility] at [phone] Allergies As of Date: 08/21/2024 Noted Allergy Reaction SOAP 02/16/2016 9 - Itching Comments: Dove soap (itching under legs) Date Reviewed: 08/20/2024 Reviewed by: Ziggy Parekh MA - Fully Assessed Reason for Visit: Insurance Authorization [[id number]] Cmt: MANJU NUNES [Other] Prescriptions as of 08/21/2024 - eletriptan (RELPAX) 40 mg tablet Take 1 tablet by mouth as needed. TAKE AT ONSET OF MIGRAINE HEADACHE. May repeat in 2 hours if needed. Max 80 mg per day. - metoclopramide HCl (REGLAN) 10 mg tablet Take 1 tablet by mouth three times a day as needed. - fremanezumab-vfrm (MANJU AUTOINJECTOR) 225 mg/1.5 mL auto-injector Inject 1.5 mL subcutaneously once every month. Do not shake. - topiramate (TOPAMAX) 100 mg tablet Take 1 tablet by mouth daily at bedtime. - escitalopram oxalate (LEXAPRO) 10 mg tablet Take 2 tablets by mouth once daily. - fluticasone (FLONASE) 50 mcg/actuation nasal spray Use 2 Sprays in each nostril once daily. Rinse mouth after use. Problem List As Of Date 08/21/2024 Noted Resolved Anxiety [F41.9] 02/03/2019 Malaise and fatigue [R53.81, R53.83] 02/03/2019 Dizzy [R42] 02/03/2019 Abdominal pain [R10.9] 02/03/2019 Decreased appetite [R63.0] 02/03/2019 Depression [F32.A] 07/24/2020 Chronic migraine without aura, intractable, wit*03/17/2023 Encounter Status:Closed by THEA MAY on 08/21/24 Normal [facility] CNOVon 08-20-2024 CNOV Office Visit (AZMNS2 ) ERON VILLATORO ([id number]) 5 F Date Time Provider Department 08/20/24 1:00 PM TYESHA FRIEDMAN [facility] During your visit today, we recorded the following information about you: Pulse Blood pressure Weight Last Period 78/minute 130/88 113.3 kg 08/02/24 Tyesha Friedman MD 08/20/2024 1:38 PM Signed Headache Center - Follow up Visit Recording using [employer] software for draft documentation of the visit was discussed with the patient/authorized retail account representative; all questions welcomed and answered. Patient/authorized retail account representative agreed to proceed TAMICA with Radha Marie PA-C 05/30/2024 Chief Complaint: migriane Interval Headache Hx: Eron is a 19-year-old female with a history of chronic migraines presenting for follow-up. Eron reports that the nature of her headaches has remained consistent since her last visit in May. She experiences throbbing pain in the front and temples, with severe migraines occurring approximately once a week. These migraines are described as debilitating and sometimes confine her to bed. She also experiences less severe headaches almost daily, with 1 headache-free day per week. She notes that Topamax has helped manage the frequency and severity of her headaches. She reports that Aleve is the only medication that effectively alleviates her headaches. She takes Aleve at least twice a week and does not exceed this frequency to avoid rebound headaches. Tylenol and Advil are no longer effective for her. She does not endorse auras but has recently started experiencing nausea with her headaches, which was not previously a symptom. She has tried various medications for her migraines without success. Nurtec was ineffective, and she ended up in the ER for a severe migraine after taking it. Rizatriptan caused disorientation, and sumatriptan was not effective. She is unsure if she still has naratriptan (Amerge) and is not currently using it. She is currently trying to obtain Ubrelvy, but her insurance has not approved it yet. She reports that her migraines are triggered by weather changes and her menstrual cycle. 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 She sleeps well at night and reports a good mood. She is currently taking Lexapro 10 mg daily. She has a family history of migraines, with her grandmother also experiencing them. She has not been on beta blockers or blood pressure medications. She does not endorse constipation or other new health problems. 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 Headache 1 Location: bilateral, temporal and frontal Quality/Description: throbbing Associated Symptoms: Photophobia: yes Phonophobia: yes Nausea: yes - on occasion Vomiting: yes - rare Other symptoms: rhinorrhea and lacrimation (flushed in face) Worse with activity: yes Number of migraine headache days/month: 26 Migraine headache severity: 7 (debilitating once a week - she has to go to bed with a headache)/10 Number of NON-migraine headache days/month: 0 Total Number of headache days/month: 26 Number of headache free days/month: 4 Current preventive treatment: Topamax and Migravent Current abortive treatment: Ubrogepant Days missed from work or school in the last month: 1 days I have reviewed the [employer] Status Assessment responses and discussed these with the patient: no, patient did not complete Tyesha Friedman MD HEADACHE SCORES: 07/14/2023 05/29/2024 Headache Questions ER visits since last office visit: 0 1 Hospital stays since last office visit 0 0 Limited ADLs in the last month: 3 3 Days missed from work or school in the last month: 1 1 Days headache pain free in the last month: 19 14 Days per month with ALL of the following symptoms - decreased productivity, light sensitivity and nausea: 0 2 Initial improvement of headache after botox injection at last visit: Not applicable, I did not have a botox injection at my last visit Not applicable, I did not have a botox injection at my last visit PRN medication usage in the last month: 4 5 Patient impression of improvement since last visit: Minimally improved Minimally improved 07/14/2023 05/29/2024 HIT-6 HIT-6 67 (Severe impact) 65 (Severe impact) 07/14/2023 05/29/2024 LEONA - 2/7 SCORES LEONA-2 Score 6 4 LEONA-7 Score 20 13 07/14/2023 05/29/2024 Migraine Specific QOL - Higher scores indicate better HRQL Role Function-Restrictive Transformed Score (range: 0-100) 34.29 34.29 Role Function-Preventive Transformed Score (range: 0-100) 60 35 Emotional Function Transformed Score (range: 0-100) 20 20 07/14/2023 05/30/2024 PHQ-9 Score 17 8 Studies to Review: No New Health Issues: No New Social History: Yes, working at a [employer] shop- New Family History: No PHYSICAL EXAMINAT (more content not included)... Normal [facility] 06-22-2024 CNPN Telephone (NHMNS2) ERON VILLATORO ([id number]) 5 F Date Time Provider Department 06/22/24 DEL MARIE [facility] During your visit today, we recorded the following information about you: Esther Alba MA 06/22/2024 3:50 PM Signed ERON VILLATORO (Pabon: [id number]) PA Drug Ubrelvy 50MG tablets Form [facility] [employer] Electronic PA Form (2016 [facility]) A new prior authorization (PA) request cannot be started at this time because there is a request already open for this drug with CoverMyMeds. Please contact the PA call center if you have questions on the status of this request HILTON Deng Latonya J, MA 06/22/2024 3:55 PM Signed Answered questions in EPA Pool; UbrelvyNTLESSTR Medication:ubrogepant (UBRELVY) 50 mg tablet More Information Standard Prior Auth Reply deadline: June 13, 2024 Payer: Kaia HILTON Deng Bea Booth 07/12/2024 10:01 AM Signed Rec'd approval via fax. Effective 06/26/2024-06/26/2025 Auth #: Approval scanned to chart via OnBase Patient informed via [employer]. Allergies As of Date: 06/22/2024 Noted Allergy Reaction SOAP 02/16/2016 9 - Itching Comments: Dove soap (itching under legs) Date Reviewed: 05/30/2024 Reviewed by: Del Marie PA-C - Fully Assessed Reason for Visit: Insurance Authorization [[id number]] Ubrelvy/Bath/Carelon rX [Other] Prescriptions as of 07/12/2024 - ubrogepant (UBRELVY) 50 mg tablet Take 1 tab as needed at onset of migraine. May repeat dose at 2 hours if needed. Max 200 mg per 24 hours. - topiramate (TOPAMAX) 100 mg tablet Take 1 tablet by mouth daily at bedtime. - escitalopram oxalate (LEXAPRO) 10 mg tablet Take 2 tablets by mouth once daily. - fluticasone (FLONASE) 50 mcg/actuation nasal spray Use 2 Sprays in each nostril once daily. Rinse mouth after use. Problem List As Of Date 06/22/2024 Noted Resolved Anxiety [F41.9] 02/03/2019 Malaise and fatigue [R53.81, R53.83] 02/03/2019 Dizzy [R42] 02/03/2019 Abdominal pain [R10.9] 02/03/2019 Decreased appetite [R63.0] 02/03/2019 Depression [F32.A] 07/24/2020 Chronic migraine without aura, intractable, wit*03/17/2023 Encounter Status:Closed by ESTHER ALBA on 06/22/24 [facility] CNOVon 05-30-2024 CNOV Office Visit (NEHAAV ) ERON VILLATORO ([id number]) 5 F Date Time Provider Department 05/30/24 1:30 PM DEL MARIE During your visit today, we recorded the following information about you: Pulse Blood pressure Weight 68/minute 128/72 111 kg Del Marie PA-C 05/30/2024 4:09 PM Signed Division of Headache Outpatient Headache Clinic - Follow up Evaluation Headache Center - Follow up Visit 07/14/2023 Tyesha Friedman Accompanied by: Father Primary Problem List: ACTIVE PROBLEM LIST Anxiety Malaise and Fatigue Dizzy Abdominal Pain Decreased Appetite Depression Chronic Migraine Without Aura, Intractable, Without Status Migrainosus Chief Complaint: chronic migraines w/o aura Impression and Plan from last visit: Impression: Eron Villatoro is a 18 year old year old female, with a history of depression and episodic migraine presents for follow-up on her migraine treatment. Her neurological examination is essentially normal at this visit. Topamax and Migravent has helped frequency of chronic migraines. Since last visit and with uptitration of Topomax, she reports improvement in headaches, down from 9 to 4 per month. Headaches are also less disabling. She also got her Nurtec approved through insurance but has not started that yet. Plan: - Continue Topiramate 100 mg qhs - Continue using Nurtec and Aleve for abortive treatment - Referral sent to psychiatry given high levels of anxiety - Medrol dose pack for the prolonged headache since last Tuesday - Follow-up in 6 months Follow-up: 6 months Level of service: Est level 4 (30-39 min). Time spent 30 min on the day of service, which included preparing to see the patient, [id number] patient care, completing clinical documentation, obtaining and/or reviewing separately obtained history, performing a medically appropriate examination, counseling and educating the patient/family/caregiv er, ordering medications, tests, or procedures, and communicating results to the patient/family/caregiv er. Pt seen and staffed with Dr. Tyesha Friedman. Ricky Nuñez MD Neurology PGY-2 July 14, 2023 Attending Note: I personally have reviewed the history and physical obtained and documented by the resident/fellow and I have examined the patient. I have discussed the management options and their respective risks and benefits with the patient. I also made the necessary revisions in the above documentation and the note reflects my input. I discussed the case and the plans with Dr. Nuñez, and I fully agree with the recommendations as outlined above. Tyesha Friedman MD Interval Headache History: Since that time, she the patient states that her headaches have improved with the topiramate and migralief supplement. She continues to have frequent migraines, but they are overall less severe. She often has to go to bed to treat the migraine. She is hoping to find an effective migraine rescue medication. She failed several triptans and nurtec. Headache 1 Location: bilateral, temporal and frontal Quality/Description: throbbing Associated Symptoms: Photophobia: yes Phonophobia: yes Nausea: yes - on occasion Vomiting: yes - rare Other symptoms: rhinorrhea and lacrimation (flushed in face) Worse with activity: yes Number of migraine headache days/month: 26 Migraine headache severity: 7/10 Number of NON-migraine headache days/month: 0 Total Number of headache days/month: 26 Number of headache free days/month: 4 Days missed from work or school in the last month: 1 days Preventative: topiramate 100 mg/night Abortive: nurtec; not effective SH: Social History Tobacco Use Smoking status: Never Passive exposure: Yes Smokeless tobacco: Never Tobacco comments: outside Substance Use Topics Alcohol use: Never Drug use: Never Menses every 28 days, not heavy ( 4 days duration) Prior Therapies Duration of Use Dose Reason for Discontinuation Anti-Convulsant Topiramate (Topamax, Trokendi XL, Qudexy) one year still taking Anti-Depressant and Antipsychotic Escitalopram (Lexapro) since 2020 currently taking Fluoxetine (Prozac) Sertraline (Zoloft) Anti-Migraine Naratriptan (Amerge) still taking Rizatriptan (Maxalt) disorientation Sumatriptan (Imitrex, Sumavel) ineffective GEPANTS Rimegepant (Nurtec) Over the Counter Medications Acetaminophen (Tylenol) ineffective Acetaminophen/Aspirin/ Caffeine (Excedrin, Goody?s) ineffective Ibuprofen (Advil, Motrin) ineffective Naproxen sodium (Aleve) still taking PAST MEDICAL HISTORY Diagnosis Date Bruxism Depression Migraine headache without aura NEGATIVE MEDICAL HISTORY Seasonal allergies PAST SURGICAL HISTORY Procedure Laterality Date TYMPANOSTOMY LOCAL/TOPICAL ANESTHESIA 08/08/2006 ALLERGIES Allergen Reactions Soap Itching Dove soap (itching under (more content not included)... Normal [facility] CNOVon 04-24-2024 [facility] ERON VILLATORO ([id number]) 5 F Date Time Provider Department 04/24/24 11:00 AM [facility] During your visit today, we recorded the following information about you: Weight Height Last Period 104.3 kg 1.778 m 04/18/24 Roger August APRN.PANEL INSTRUMENT REPAIRER 04/24/2024 12:18 PM Signed MEDICAL BREAST PATIENT NAME: Eron Villatoro April 24, 2024 REFERRAL: She is self referred for an opinion regarding Right breast pain and lump. 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 She reports she first noticed RIGHT breast lump about 6 months ago. Lump is tender with palpation. She denies any trauma or injury to breast. She denies any new medication or OTC supplements. She denies any changes in her weight. She thinks lump is size of golf ball and rates the pain a 5 on scale from 1-10. The patient denies any skin changes, or nipple discharge. Genetic Testing: No No results found for: VITD25 She takes no supplements. BMD: No PERSONAL BREAST HISTORY: Breast biopsy: No Breast cysts: No Breast surgery: No Breast cancer: No CANCER SURVEILLANCE: Mammograms: No Breast MRI: No Colonoscopy: No RISK FACTORS FOR BREAST CANCER: Age at the onset of menses: 13 years of age. P: 0 Age at the of first child: Patient is nulliparous. Age at menopause: The patient is not menopausal at this time. She has an intact uterus and ovaries She does not use any control. History of Mantle Radiation prior to the age of 30: No Obesity: -Last 1 Encounter Wt Readings: Date: Wt: 07/14/2023 100.2 kg (220 lb 14.4 oz) (99%, Z= 2.21)* -33 kg/m2 Mammographic density: Unknown Personal History of Benign Atypical Breast Biopsy: No Alcohol use: Never PAST MEDICAL HISTORY: Patient specifically denies history of: DVT, PE, migraine headaches WITH AURA, abnormal uterine bleeding, abnormal uterine biopsies, osteopenia, and osteoporosis. +migraine without auras SOCIAL HISTORY: Social History Tobacco Use Smoking status: Never Passive exposure: Yes Smokeless tobacco: Never Tobacco comments: outside Substance Use Topics Alcohol use: Never Drug use: Never Caffeine intake: 16 oz coffee / day Exercise: 1-2 times weekly FAMILY HISTORY: Family history of breast cancer: Paternal Great Aunt and Paternal Great grandmother Family history of ovarian cancer: None Number of sisters: 0 Number of maternal aunts: 1 Number of paternal aunts: 1 Ashkenazi Ancestry: no Other Cancer: PGM dx melanoma-alive and well There is no family history of prostate, colon, uterine, pancreatic, gastric, brain, renal cell or thyroid cancer. There is no family history of sarcoma or leukemia. Osteoporosis: MGM dx 74-alive and well Stroke: None Blood Clot: None Heart attack: Father dx 44-alive and well and PGF dx 55-alive and well Thyroid Nodule or Goiter: None Autism: None REVIEW OF SYSTEMS: The patient specifically denies unintentional weight loss, insomnia, hot flashes, night sweats, abnormal swelling in the arms or legs, chest pain, shortness of breath, persistant cough, heartburn, urinary incontinence, vaginal dryness, decreased libido or unusual bony pains. +severe headaches The sensitive examination was discussed with the Patient or Patient's Authorized Etcher Apprentice Photoengraving. As applicable, any other physician, advance practice provider, medical student, or other health professional student that will be observing or involved in the sensitive examination for educational or training purposes was discussed with the Patient or Authorized Etcher Apprentice Photoengraving. The Patient or Authorized Etcher Apprentice Photoengraving has agreed to proceed with the sensitive examination. (Sensitive examination includes inspection and/or palpation of the breasts, pelvis, prostate and anorectal regions) PHYSICAL EXAM: Ht 177.8 cm (5' 10) Wt 104.3 kg (230 lb) LMP 04/18/2024 (Exact Date) BMI 33.00 kg/m? General: well-nourished, healthy, obese, white, female, alert and oriented x 3, calm Skin: warm, dry, skin color, texture, turgor normal Head/Eyes: normocephalic, atraumatic, and anicteric Lymph nodes- The supraclavicular, axillary, and cervical regions are free of significant lymphadenopathy. Right breast-The skin, nipple and areola appear normal. There is no skin dimpling with movement of the pectoralis. There is no nipple retraction. No discharge can be elicited. The parenchya is moderately fibrocystic UOQ. At the 12 o'clock position 4 cmfn there is a prominent tender area of increased fibrocystic change (she confirms this is area of concern). The axillary tail is normal. There is slight tenderness noted with pal (more content not included)... Normal [facility] [employer] BREAST [employer] RTon 04-24 [employer] BREAST [employer] RT * * *Final Report* * * DATE OF EXAM: Apr 24 2024 11:33AM [facility] 0594 - [employer] RT / PROCEDURE REASON: Mass of upper inner quadrant of right breast * * * * Physician Interpretation * * * * RESULT: [facility] [address] [place] [address] #[id number] - [employer] RT HISTORY: Patient is 19 years old and is seen for diagnostic evaluation of a palpable abnormality in the right breast. Patient states no personal history of breast cancer. Patient states no personal history of other cancers. COMPARISON STUDIES: No prior imaging studies are available for comparison. ULTRASOUND TECHNIQUE: Targeted ultrasound of the indicated area was performed. Arango scale images were saved. ULTRASOUND FINDINGS: Targeted ultrasound of the right breast was performed for evaluation of the palpable area of concern at 12:00 6 cm from the nipple. There are no suspicious sonographic findings. Benign appearing fibroglandular tissue is seen in the region of palpable concern. IMPRESSION: There are no suspicious sonographic findings in the imaged area. No suspicious findings to correlate with the palpable area in the right breast at 12:00. Clinical follow-up is recommended. BI-RADS Category 2: Benign Interpreting Radiologist: Gerald Sosa M.D. Electronically signed on: 04/24/2024 Drawer Liner: RADHA Transcribe Date/Time: Apr 24 2024 11:29A Dictated by: GERALD SOSA MD This examination was interpreted and the report reviewed and electronically signed by: GERALD SOSA MD on Apr 24 2024 11:36AM EST [id number] Normal [facility] US Breast - right limitedon 04-24-2024 IMPRESSION: There are no suspicious sonographic findings in the imaged area. No suspicious findings to correlate with the palpable area in the right breast at 12:00. Clinical follow-up is recommended. BI-RADS Category 2: Benign Interpreting Radiologist: Gerald Sosa M.D. Electronically signed on: 04/24/2024 Drawer Liner: RADHA Transcribe Date/Time: Apr 24 2024 11:29A Dictated by: GERALD SOSA MD This examination was interpreted and the report reviewed and electronically signed by: GERALD SOSA MD on Apr 24 2024 11:36AM EST DIVISION OF RADIOLOGY * * *Final Report* * * DATE OF EXAM: Apr 24 2024 11:33AM [facility] 0594 - [facility] [employer] BREAST [employer] RT / PROCEDURE REASON: Mass of upper inner quadrant of right breast * * * * Physician Interpretation * * * * RESULT: [facility] [address] [place] [address] #[id number] - [facility] [employer] BREAST [employer] RT HISTORY: Patient is 19 years old and is seen for diagnostic evaluation of a palpable abnormality in the right breast. Patient states no personal history of breast cancer. Patient states no personal history of other cancers. COMPARISON STUDIES: No prior imaging studies are available for comparison. ULTRASOUND TECHNIQUE: Targeted ultrasound of the indicated area was performed. Arango scale images were saved. ULTRASOUND FINDINGS: Targeted ultrasound of the right breast was performed for evaluation of the palpable area of concern at 12:00 6 cm from the nipple. There are no suspicious sonographic findings. Benign appearing fibroglandular tissue is seen in the region of palpable concern. DIVISION OF RADIOLOGY Provider, Oniel Martin - 04/24/2024 * * *Final Report* * * DATE OF EXAM: Apr 24 2024 11:33AM W 0594 - [facility] US BREAST LTD RT / PROCEDURE REASON: Mass of upper inner quadrant of right breast * * * * Physician Interpretation * * * * RESULT: [facility] [address] [place] [address] #[id number] - [facility] US BREAST LTD RT HISTORY: Patient is 19 years old and is seen for diagnostic evaluation of a palpable abnormality in the right breast. Patient states no personal history of breast cancer. Patient states no personal history of other cancers. COMPARISON STUDIES: No prior imaging studies are available for comparison. ULTRASOUND TECHNIQUE: Targeted ultrasound of the indicated area was performed. Arango scale images were saved. ULTRASOUND FINDINGS: Targeted ultrasound of the right breast was performed for evaluation of the palpable area of concern at 12:00 6 cm from the nipple. There are no suspicious sonographic findings. Benign appearing fibroglandular tissue is seen in the region of palpable concern. IMPRESSION IMPRESSION: There are no suspicious sonographic findings in the imaged area. No suspicious findings to correlate with the palpable area in the right breast at 12:00. Clinical follow-up is recommended. BI-RADS Category 2: Benign Interpreting Radiologist: Gerald Sosa M.D. Electronically signed on: 04/24/2024 Drawer Liner: RADHA Transcrimarce Date/Time: Apr 24 2024 11:29A Dictated by: GERALD SOSA MD This examination was interpreted and the report reviewed and electronically signed by: GERALD SOSA MD on Apr 24 2024 11:36AM EST [facility] Radiology Study observation (narrative) [facility] US Breast - right limitedOrd ered By: Ccf Provider on 04-24-2024 [facility] CHEST 2 VIEWSon 02-27-2024 CHEST 2 VIEWS [place] [id number] Patient: ERON VILLATORO Phone#: : 2005 Age: 18 Gender: F Pt. Type: Out Account: [id number] Location: [facility] Ordering: BAYRON CHANEY Exam Date: 02/27/2024/8:45 Family Phys: Charge Code: 332002 Physician: Baldwin Order #: [id number] Dose#: PROCEDURE: X-RAY CHEST 2 VIEWS COMPARISON: [facility], XR, CHEST 2 VIEWS, 01/25/2019, 15:34. INDICATIONS: Cough. FINDINGS: LUNGS: Normal. No significant pulmonary parenchymal abnormalities. VASCULATURE: Normal. Unremarkable pulmonary vasculature. CARDIAC: Normal. No cardiac silhouette abnormality or cardiomegaly. MEDIASTINUM: Normal. No visible mass or adenopathy. PLEURA: Normal. No effusion or pleural thickening. BONES: Normal. No fracture or visible bony lesion. OTHER: Negative. CONCLUSION: No acute disease. No significant change has occurred. Dictated by: Samantha Moe MD on 02/27/2024 at 13:04 Approved by: Samantha Moe MD on 02/27/2024 at 13:12 Normal [facility] XR Chest PA and Lateralon IMPRESSION: No focal airspace opacity. Drawer Liner: AISHA Transcribe Date/Time: Mar 24 2023 9:27A Dictated by : MICHELLE WALKER DO This examination was interpreted and the report reviewed and electronically signed by: MICHELLE WALKER DO on Mar 24 2023 9:28AM [facility] [[email or web address]] DIVISION OF RADIOLOGY * * *Final Report* * * DATE OF EXAM: Mar 24 2023 9:13AM WOX 5291 - XR CHEST 2V FRONTAL/LAT / PROCEDURE REASON: Acute cough * * * * Physician Interpretation * * * * EXAMINATION: CHEST RADIOGRAPH (2 VIEW FRONTAL & LATERAL) CLINICAL HISTORY: Acute cough MQ: XC2_6 EXAM DATE/TIME: 03/24/2023 9:13 AM COMPARISON: No relevant prior studies available. RESULT: Lines, tubes, and devices: None. Lungs and pleura: No consolidation. No pleural effusion. No pneumothorax. Cardiomediastinal silhouette: Normal cardiomediastinal silhouette. Bones and soft tissues: Unremarkable. DIVISION OF RADIOLOGY Provider, Susu Jenny hurd [place] - 03/24/2023 * * *Final Report* * * DATE OF EXAM: Mar 24 2023 9:13AM WOX 5291 - XR CHEST 2V FRONTAL/LAT / PROCEDURE REASON: Acute cough * * * * Physician Interpretation * * * * EXAMINATION: CHEST RADIOGRAPH (2 VIEW FRONTAL & LATERAL) CLINICAL HISTORY: Acute cough MQ: XC2_6 EXAM DATE/TIME: 03/24/2023 9:13 AM COMPARISON: No relevant prior studies available. RESULT: Lines, tubes, and devices: None. Lungs and pleura: No consolidation. No pleural effusion. No pneumothorax. Cardiomediastinal silhouette: Normal cardiomediastinal silhouette. Bones and soft tissues: Unremarkable. IMPRESSION IMPRESSION: No focal airspace opacity. Drawer Liner: AISHA Transcribe Date/Time: Mar 24 2023 9:27A Dictated by : MICHELLE WALKER DO This examination was interpreted and the report reviewed and electronically signed by: MICHELLE WALKER DO on Mar 24 2023 9:28AM EST [facility] Radiology Study observation (narrative) [facility] XR Chest PA and LateralOrder ed By: Ccf Provider on 03-24-2023 [facility] Sinus/Facial Boneon 01-25-20 23 Sinus/Facial Bone [facility] Imaging Services [address] [place] [id number] Sinus/Facial Bone MR#: [id number] Acct: [id number] Name: ERON VILLATORO Rep #: [id number] : 2005 F 17 From: Domingo tapia MD PCP: Dr. Aubree Stoll MD Status: REG CLI Study: Sinus/Facial Bone Date of Exam: 01/24/23 Exam# [id number] Ordering Dr: Crow Patrick MD [id number] STUDY: CT MAXILLOFACIAL SINUSES REASON FOR EXAM: Female, 17 years old. CHRONIC SINUSITIS RADIATION DOSAGE (If Supplied By Facility): CTDIvol = ( 33.06 ) mGy, DLP = ( 800.79 ) mGycm TECHNIQUE: The patient was scanned in a multi detector CT scanner. High resolution axial imaging was performed without the administration of intravenous contrast material. Sagittal and coronal images were reconstructed. Individualized dose optimization techniques were used for this CT. COMPARISON: None. FINDINGS: FRONTAL SINUSES: Normal aeration, without mucosal inflammatory disease. ETHMOIDAL SINUSES: Normal aeration, without mucosal inflammatory disease. MAXILLARY SINUSES: Normal aeration, without mucosal inflammatory disease. SPHENOIDAL SINUSES: Normal aeration, without mucosal inflammatory disease. There is patency of the bilateral maxillary infundibuli with normal uncinate processes, ethmoid bullae, and hiatus semilunaris. Normal bilateral middle turbinates. Normal bilateral inferior turbinates. Normal midline nasal septum. There is patency of the bilateral nasal airways. The visualized osseous structures are normal. The visualized bilateral orbital contents are normal. CT/Sinus/Facial Bone IMPRESSION: Normal CT examination of the maxillofacial sinuses. Electronically Signed: Domingo Cheung MD at 15:21 EDT , CC: Dr. Aubree Stoll MD; Dr. 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 in Healthcare No [facility] ([place]) Comment on above: Performed By: #### C OVID #### [place] [id number] [place], [place] [address] First Test Unknown Normal [facility] ([place]) Comment on above: Performed By: #### C OVID #### [address] [address] Hospitalized No [facility] ([place]) Comment on above: Performed By: #### C OVID #### Bur[place] [address] [address] ICU No [facility] ([place]) Comment on above: Performed By: #### C OVID #### [place] [address] Not [facility] ([place]) Comment on above: Performed By: #### C OVID #### [place] [address] Resides in Congregate Care Setting No [facility] ([place]) Comment on above: Performed By: #### C OVID #### [place] [address] Symptomatic as Defined by CDC Yes [facility] ([place]) Comment on above: Performed By: #### C OVID #### [place] [id number] COVIDon 12-15-2019 COVID 19 Result HEAD BU[employer]ER [employer]BAC[employer] See Below [facility] [place] Comment on above: Result Comment: Nega tive Negative for COVID19 (SARS CoV2) by PCR. This test was developed and its performance characteristics determined by [facility] and Laboratory Medicine [place]. This test has been authorized by FDA under an Emergency Use Authorization (EUA). This test has been validated in accordance with the FDA's Guidance Document Policy for Diagnostics Testing in Laboratories Certified to Perform High Complexity Testing under CLIA prior to Emergency use Authorization for Coronavirus Disease 2019 during the Public Health Emergency issued on June 02, 2019. Performed By: [facility] [address] [place] [address] Services Delivery Driver: Grant Angel III, M.D. CLIA#: [id number] Phone#: Performed By: #### C OVID #### [place] [address] COVID 19 Source HEAD BUYER TOBACCO See Below Normal [facility] ([place]) Comment on above: Result Comment: Naso pharyngeal Swab Performed By: [facility] [address] [place] [address] Services Delivery Driver: Mitzy Ray III#: [id number] Phone#: Performed By: #### C OVID #### [address] [address] Vital Signs Date Time Vital Sign Value Performing Clinician Shannan dean 11-23-2024 09:10-0400 Body mass index (BMI) [Ratio] 36.12 kg/m2 Tyesha Friedman MD Work Phone: [facility] 11-23-2024 09:10-0400 Body weight 114.2 kg Tyesha Friedman MD Work Phone: [facility] 11-23-2024 09:10-0400 Diastolic blood pressure 72 mm[Hg] Tyesha Friedman MD Work Phone: [facility] 11-23-2024 09:10-0400 Heart rate 70 /min Tyesha Friedman MD Work Phone: [facility] 11-23-2024 09:10-0400 SaO2% (BldA) [Mass fraction] 100 % Tyesha Friedman MD Work Phone: [facility] 11-23-2024 09:10-0400 Systolic blood pressure 125 mm[Hg] Tyesha Friedman MD Work Phone: [facility] 08-20-2024 13:00-0400 Diastolic blood pressure 88 mm[Hg] Tyesha Friedman MD Work Phone: [facility] 08-20-2024 13:00-0400 Heart rate 78 /min Tyesha Friedman MD Work Phone: [facility] 08-20-2024 13:00-0400 Systolic blood pressure 130 mm[Hg] Tyesha Friedman MD Work Phone: [facility] 08-20-2024 12:52-0400 Body mass index (BMI) [Ratio] 35.84 kg/m2 Tyesha Friedman MD Work Phone: [facility] 08-20-2024 12:52-0400 Body weight 113.3 kg Tyesha Friedman MD Work Phone: [facility] 08-20-2024 12:52-0400 SaO2% (BldA) [Mass fraction] 98 % Tyesha Friedman MD Work Phone: [facility] 05-30-2024 13:18-0500 Body mass index (BMI) [Ratio] 35.11 kg/m2 Del Frank PA-C Work Phone: [facility] 05-30-2024 13:18-0500 Body weight 111 kg Del Frank PA-C Work Phone: [facility] 05-30-2024 13:18-0500 Diastolic blood pressure 72 mm[Hg] Del Frank PA-C Work Phone: [facility] 05-30-2024 13:18-0500 Heart rate 68 /min Del Frank PA-C Work Phone: [facility] 05-30-2024 13:18-0500 Systolic blood pressure 128 mm[Hg] Del Frank PA-C Work Phone: [facility] 04-24-2024 11:05-0500 Body height 177.8 cm Roger August APRN.PANEL INSTRUMENT REPAIRER Work Phone: [facility] 04-24-2024 11:05-0500 Body mass index (BMI) [Ratio] 33 kg/m2 Roger August APRN.PANEL INSTRUMENT REPAIRER Work Phone: [facility] 04-24-2024 11:05-0500 Body weight 104.33 kg oRger August APRN.PANEL INSTRUMENT REPAIRER Work Phone: [facility] 07-14-2023 10:50-0400 Body weight 100.2 kg Tyesha Friedman MD Work Phone: [facility] 07-14-2023 10:50-0400 Diastolic blood pressure 77 mm[Hg] Tyesha Friedman MD Work Phone: [facility] 07-14-2023 10:50-0400 Heart rate 64 /min Tyesha Friemdan MD Work Phone: [facility] 07-14-2023 10:50-0400 SaO2% (BldA) [Mass fraction] 98 % Tyesha Friedman MD Work Phone: [facility] 07-14-2023 10:50-0400 Systolic blood pressure 118 mm[Hg] Tyesha Friedman MD Work Phone: [facility] 12-28-2022 12:01-0400 Body height 172.7 cm Raul Junior APRN.PANEL INSTRUMENT REPAIRER Work Phone: [facility] 12-28-2022 12:01-0400 Body mass index (BMI) [Percentile] Per age and sex 96.52 % Raul Junior APRN.PANEL INSTRUMENT REPAIRER Work Phone: [facility] 12-28-2022 12:01-0400 Body temperature 98.01 [degF] Raul Junior APRN.PANEL INSTRUMENT REPAIRER Work Phone: [facility] 12-28-2022 12:01-0400 Body weight 98.2 kg Raul Junior APRN.PANEL INSTRUMENT REPAIRER Work Phone: [facility] 12-28-2022 12:01-0400 Diastolic blood pressure 75 mm[Hg] Raul Junior APRN.PANEL INSTRUMENT REPAIRER Work Phone: [facility] 12-28-2022 12:01-0400 Heart rate 70 /min Raul Junior APRN.PANEL INSTRUMENT REPAIRER Work Phone: [facility] 12-28-2022 12:01-0400 Respiratory rate 20 /min Raul Junior APRN.PANEL INSTRUMENT REPAIRER Work Phone: [facility] 12-28-2022 12:01-0400 SaO2% (BldA) [Mass fraction] 98 % Raul Junior APRN.PANEL INSTRUMENT REPAIRER Work Phone: [facility] 12-28-2022 12:01-0400 Systolic blood pressure 126 mm[Hg] Raul Junior APRN.PANEL INSTRUMENT REPAIRER Work Phone: [facility] 09-07-2022 11:50-0400 Body height 174.7 cm Raul Junior APRN.PANEL INSTRUMENT REPAIRER Work Phone: [facility] 09-07-2022 11:50-0400 Body mass index (BMI) [Percentile] Per age and sex 96.82 % Raul Junior APRN.PANEL INSTRUMENT REPAIRER Work Phone: [facility] 09-07-2022 11:50-0400 Body temperature 98.2 [degF] Raul Junior APRN.PANEL INSTRUMENT REPAIRER Work Phone: [facility] 09-07-2022 11:50-0400 Body weight 98.43 kg Raul Junior APRN.PANEL INSTRUMENT REPAIRER Work Phone: [facility] 09-07-2022 11:50-0400 Diastolic blood pressure 64 mm[Hg] Raul Junior APRN.PANEL INSTRUMENT REPAIRER Work Phone: [facility] 09-07-2022 11:50-0400 Heart rate 68 /min Raul Junior APRN.PANEL INSTRUMENT REPAIRER Work Phone: [facility] 09-07-2022 11:50-0400 SaO2% (BldA) [Mass fraction] 97 % Raul Junior APRN.PANEL INSTRUMENT REPAIRER Work Phone: [facility] 09-07-2022 11:50-0400 Systolic blood pressure 119 mm[Hg] Raul Junior APRN.PANEL INSTRUMENT REPAIRER Work Phone: [facility] 06-01-2022 15:36-0500 Body height 172.3 cm Raul Junior APRN.PANEL INSTRUMENT REPAIRER Work Phone: [facility] 06-01-2022 15:36-0500 Body mass index (BMI) [Percentile] Per age and sex 97.03 % Raul Junior APRN.PANEL INSTRUMENT REPAIRER Work Phone: [facility] 06-01-2022 15:36-0500 Body temperature 97.81 [degF] Raul Junior APRN.PANEL INSTRUMENT REPAIRER Work Phone: [facility] 06-01-2022 15:36-0500 Body weight 96.16 kg Raul Vernon PROFESSOR OF MARKETING.PANEL INSTRUMENT REPAIRER Work Phone: [facility] 06-01-2022 15:36-0500 Diastolic blood pressure 67 mm[Hg] Raul Junior APRN.PANEL INSTRUMENT REPAIRER Work Phone: [facility] 06-01-2022 15:36-0500 Heart rate 99 /min Raul Junior PROFESSOR OF MARKETING.PANEL INSTRUMENT REPAIRER Work Phone: [facility] 06-01-2022 15:36-0500 SaO2% (BldA) [Mass fraction] 98 % Raul Junior PROFESSOR OF MARKETING.PANEL INSTRUMENT REPAIRER Work Phone: [facility] 06-01-2022 15:36-0500 Systolic blood pressure 133 mm[Hg] Raul Junior APRN.PANEL INSTRUMENT REPAIRER Work Phone: [facility] 05-27-2022 14:09-0500 Body temperature 98.1 [degF] Enoc Foss MD Work Phone: [facility] 05-27-2022 14:09-0500 Body weight 96.16 kg Enoc Foss MD Work Phone: [facility] 05-27-2022 14:09-0500 Heart rate 78 /min Enoc Foss MD Work Phone: [facility] 05-27-2022 14:09-0500 Respiratory rate 18 /min Enoc Foss MD Work Phone: [facility] 05-26-2022 07:36-0500 Body temperature 97.39 [degF] Radha Pruett PA-C Work Phone: [facility] 05-26-2022 07:36-0500 Body weight 97.66 kg Radha Pruett PA-C Work Phone: [facility] 05-26-2022 07:36-0500 Heart rate 80 /min Radha Pruett PA-C Work Phone: [facility] 05-26-2022 07:36-0500 Respiratory rate 18 /min Radha Pruett PA-C Work Phone: [facility] 05-17-2022 11:32-0500 Body temperature 98.1 [degF] Radha Pruett PA-C Work Phone: [facility] 05-17-2022 11:32-0500 Body weight 97.07 kg Radha Pruett PA-C Work Phone: [facility] 05-17-2022 11:32-0500 Heart rate 82 /min Radha Pruett PA-C Work Phone: [facility] 05-17-2022 11:32-0500 Respiratory rate 18 /min Radha Pruett PA-C Work Phone: [facility] 04-13-2022 16:51-0500 Body temperature 97.81 [degF] Enoc Foss MD Work Phone: [facility] 04-13-2022 16:51-0500 Body weight 97.52 kg Enoc Foss MD Work Phone: [facility] 04-13-2022 16:51-0500 Diastolic blood pressure 80 mm[Hg] Enoc Foss MD Work Phone: [facility] 04-13-2022 16:51-0500 Heart rate 88 /min Enoc Foss MD Work Phone: [facility] 04-13-2022 16:51-0500 Respiratory rate 20 /min Enoc Foss MD Work Phone: [facility] 04-13-2022 16:51-0500 Systolic blood pressure 112 mm[Hg] Enoc oFss MD Work Phone: [facility] Encounters Encounter Date Encounter Type Care Provider Facility Start: 01-21-2025 End: 01-21-2025 Emergency department patient visit [facility] Start: 11-23-2024 End: 11-23-2024 Office outpatient visit 15 minutes Tyesha Friedman MD Work Phone: Neurology Comment on above: Chronic migraine wit h aura without status migrainosus, not intractable; Migraine without aura and without status migrainosus, not intractable; Menstrual migraine without status migrainosus, not intractable Start: 11-23-2024 End: 11-23-2024 ambulatory [facility] Facility:[facility] Start: 11-22-2024 End: 11-22-2024 Telephone encounter Thea Peaceozruiz [facility] Melony e Delivery Comment on above: 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 (AJOVY ); AJOVY Start: 10-29-2024 End: 10-30-2024 ambulatory Tyesha Friedman MD Work Phone: Neurology Comment on above: [employer] Start: 08-20-2024 End: 08-20-2024 Office outpatient visit 25 minutes Tyesha Friedman MD Work Phone: Neurology Comment on above: Chronic migraine wit h aura without status migrainosus, not intractable (Primary Dx); Migraine without aura and without status migrainosus, not intractable; Menstrual migraine without status migrainosus, not intractable Start: 08-20-2024 End: 08-20-2024 [facility] Facility:[facility] Start: 06-22-2024 End: 06-22-2024 Telephone encounter Del Marie PA-C Work Phone: Neurology Comment on above: 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; [employer] Start: 05-30-2024 End: 05-30-2024 ambulatory DEL MARIE Facility:[facility] Start: 05-30-2024 End: 05-30-2024 Office outpatient visit 40 minutes Del Marie PA-C Work Phone: Neurology Comment on above: Chronic migraine wit h aura without status migrainosus, not intractable (Primary Dx); Encounter for long-term (current) use of medications Start: 04-24-2024 End: 04-24-2024 ambulatory [facility] Facility:[facility] Start: 04-24-2024 End: 04-24-2024 Patient encounter procedure Roger August APRN.CNP Work Phone: [facility] Comment on above: Mass of upper inner quadrant of right breast (Primary Dx); Fibrocystic breast changes of both breasts; Mastodynia; Excess weight; Family history of breast cancer Start: 04-24-2024 End: 04-24-2024 Subsequent hospital visit by physician [facility] Work Phone: Mammography Comment on above: Mass of upper inner quadrant of right breast [N63.12] Start: 04-06-2024 End: 04-06-2024 Refill Tyesha Friedman MD Work Phone: Neurology Comment on above: Refill Request Start: 02-27-2024 End: 02-27-2024 ambulatory [facility] Start: 11-30-2023 End: 12-20-2023 ambulatory Tyesha Friedman MD Work Phone: Neurology Comment on above: [employer] Start: 07-14-2023 End: 07-14-2023 Patient encounter procedure Tyesha Friedman MD Work Phone: Neurology Comment on above: Migraine without aur a and without status migrainosus, not intractable (Primary Dx); Generalized anxiety disorder; Menstrual migraine without status migrainosus, not intractable; Chronic migraine without aura, intractable, without status migrainosus Start: 03-24-2023 End: 03-24-2023 Subsequent hospital visit by physician [facility] Work Phone: Radiology Comment on above: Acute cough [R05.1] Start: 01-24-2023 End: 01-24-2023 ambulatory Crow Darnell [facility] Work Phone: Start: 01-24-2023 End: 01-24-2023 Patient encounter procedure [facility], [facility] Work Phone: Start: 12-28-2022 End: 12-28-2022 Patient encounter procedure Raul Junior APRN.PANEL INSTRUMENT REPAIRER Work Phone: Neurology Comment on above: Migraine without sta tus migrainosus, not intractable, unspecified migraine type (Primary Dx); Tension headache Start: 12-21-2022 Telephone encounter Raul allen APRN.PANEL INSTRUMENT REPAIRER Work Phone: Neurology Comment on above: Mat Roller - O ther (Medication refill) Start: 12-17-2022 Refill Raul Josesito kamara PROFESSOR OF MARKETING.PANEL INSTRUMENT REPAIRER Work Phone: Neurology Comment on above: Refill Request Start: 09-21-2022 Refill Raul Josesito kamara PROFESSOR OF MARKETING.PANEL INSTRUMENT REPAIRER Work Phone: Neurology Comment on above: Refill Request Start: 09-07-2022 End: 09-07-2022 Patient encounter procedure Rauljonah Junior APRN.PANEL INSTRUMENT REPAIRER Work Phone: Neurology Comment on above: Migraine without sta tus migrainosus, not intractable, unspecified migraine type (Primary Dx); Tension headache Start: 07-02-2022 ambulatory Rauljonah Bellamy nd PROFESSOR OF MARKETING.PANEL INSTRUMENT REPAIRER Work Phone: Neurology Comment on above: MRI results Start: 07-02-2022 E-mail encounter fro m caregiver Raul Junior APRN.PANEL INSTRUMENT REPAIRER Work Phone: [facility] Start: 07-01-2022 End: 07-01-2022 Subsequent hospital visit by physician [facility] [employer] [facility] W[facility] (I-Stat/1.5t) Work Phone: Radiology Comment on above: Nonintractable heada bertha, unspecified chronicity pattern, unspecified headache type [R51.9] Start: 06-15-2022 Refill Enoc duckworth MD Work Phone: [facility] [place] Comment on above: Refill Request Start: 06-01-2022 End: 06-01-2022 Patient encounter procedure Raul Junior APRN.PANEL INSTRUMENT REPAIRER Work Phone: Neurology Comment on above: Migraine without sta tus migrainosus, not intractable, unspecified migraine type (Primary Dx); Tension headache; Nonintractable headache, unspecified chronicity pattern, unspecified headache type Start: 05-27-2022 End: 05-27-2022 Patient encounter procedure Enoc Foss MD Work Phone: [facility] [place] Comment on above: Migraine without sta tus migrainosus, not intractable, unspecified migraine type (Primary Dx) Start: 05-26-2022 End: 05-26-2022 Patient encounter procedure Radha Pruett PA-C Work Phone: [facility] Comment on above: Bacterial sinusitis (Primary Dx) Start: 05-25-2022 ambulatory Enoc duckworth MD Work Phone: [facility] [place] Comment on above: Sinus Infection,freq uent/recurring Start: 05-17-2022 End: 05-17-2022 Patient encounter procedure Radha Pruett PA-C Work Phone: [facility] [place] Comment on above: Acute bacterial sinu sitis (Primary Dx) Start: 04-13-2022 End: 04-13-2022 Patient encounter procedure Enoc Foss MD Work Phone: [facility] [place] Comment on above: Migraine without sta tus migrainosus, not intractable, unspecified migraine type (Primary Dx); Bilateral acute serous otitis media, recurrence not specified Start: 04-13-2022 Telephone encounter Enoc Foss MD Work Phone: [facility] [place] Comment on above: Referral Request Start: 04-12-2022 ambulatory Enoc duckworth MD Work Phone: [facility] [place] Comment on above: Headache Procedures Date Procedure Procedure Detail Performing Clinician Start: 01-21-2025 Urinalysis GORDON SHORT Comment on above: Result Comment: URIN ALYSIS Performed By: #### 2 [id number] #### [facility],[address] [place] [address] Start: 04-24-2024 Us breast uni real t amanda with image limited Roger August PROFESSOR OF MARKETING.PANEL INSTRUMENT REPAIRER Work Phone: Start: 03-24-2023 Radiologic exam ches t 2 views Mary Selby PA-C Work Phone: Start: 01-24-2023 CT of face Start: 07-01-2022 Mri brain brain stem w/o contrast material Raul Junior APRN.PANEL INSTRUMENT REPAIRER Work Phone: Start: 02-03-2021 Adult depression screening assessment Enoc Foss MD Work Phone: Plan of Treatment Date Care Activity Detail Author Start: 05-12-2027 Urine microalbumin profile [facility] Start: 05-31-2025 End: 05-31-2025 Patient encounter procedure 05/31/2025 9:30 AM EST Office Visit Neurology [address] [place] [address] Tyesha Friedman MD [address] [place] [address] migraines Neurology Comment on above: migraines Start: 12-03-2024 Influenza vaccination [facility] Start: 11-23-2024 End: 11-23-2024 Patient encounter procedure 11/23/2024 9:30 AM EDT Office Visit Neurology [address] [place] [address] Tyesha Friedman MD [address] [place] [address] 3 month follow up Neurology Comment on above: 3 month follow up Start: 08-31-2024 End: 08-31-2024 Patient encounter procedure 08/31/2024 1:30 PM EDT Office Visit Neurology [address] [place] [address] Del Marie PA-C [address] [place] [address] 3 MONTH FOLLOW UP Neurology Comment on above: 3 MONTH FOLLOW UP Start: 05-30-2024 End: 08-29-2024 25-HYDROXY D2+D3 25-HYDROXY D2+D3 Lab Routine Chronic migraine with aura without status migrainosus, not intractable Encounter for long-term (current) use of medications Expected: 05/30/2024 (Approximate), Expires: 08/29/2024 [facility] Comment on above: Expected: 05/30/2024 (Approximate), Expires: 08/29/2024 Start: 05-30-2024 End: 08-29-2024 CBC panel - Blood by Automated count COMPLETE BLOOD COUNT Lab Routine Chronic migraine with aura without status migrainosus, not intractable Encounter for long-term (current) use of medications Expected: 05/30/2024 (Approximate), Expires: 08/29/2024 [facility] Work Phone: Comment on above: Expected: 05/30/2024 (Approximate), Expires: 08/29/2024 Start: 05-30-2024 End: 08-29-2024 Comprehensive metabolic 2000 panel - Serum or Plasma COMPREHENSIVE METABOLIC PANEL Lab Routine Chronic migraine with aura without status migrainosus, not intractable Encounter for long-term (current) use of medications Expected: 05/30/2024 (Approximate), Expires: 08/29/2024 [facility] Comment on above: Expected: 05/30/2024 (Approximate), Expires: 08/29/2024 Start: 05-30-2024 End: 08-29-2024 Thyrotropin [Units/volume] in Serum or Plasma THYROID STIMULATING HORMONE Lab Routine Chronic migraine with aura without status migrainosus, not intractable Encounter for long-term (current) use of medications Expected: 05/30/2024 (Approximate), Expires: 08/29/2024 [facility] Comment on above: Expected: 05/30/2024 (Approximate), Expires: 08/29/2024 Start: 05-30-2024 End: 05-30-2024 Patient encounter procedure 05/30/2024 1:30 PM EST Office Visit Neurology [address] [place], [place] [id number] Del Marie PA-C [address] [place] [address] migraines Neurology Comment on above: migraines Start: 12-04-2023 Covid-19 Vaccine ( season) Covid-19 Vaccine ( season) [facility] Start: 12-04-2023 Covid-19 Vaccine ( season) Covid-19 Vaccine ( season) [facility] Start: 12-04-2023 Influenza vaccination [facility] Start: 2023 GC (Gonorrhea) Screening (18-24) GC (Gonorrhea) Screening (18-24) [facility] Start: 2023 Hepatitis C screening Hepatitis C Sc reening [facility] Start: 2023 HIV screening HIV Screening [facility] Start: 2023 Screening for Chlamy jose trachomatis Chlamydia Screening (18-24) [facility] Start: 12-03-2022 Covid-19 Vaccine ( season) Covid-19 Vaccine ( season) [facility] Start: 12-03-2022 Influenza vaccination [facility] Start: 02-03-2022 Adult depression screening assessment DEPRESSION SCREENING [facility] Start: 12-03-2021 Influenza vaccination INFLUENZA (#1) [facility] Start: 2021 Meningococcal B Vacc ine (1 of 2 - Standard) Meningococcal B Vaccine (1 of 2 - Standard) [facility] Start: 2021 Meningococcal B Vaccine: Consider Based On Risk (1 of 2 - Patient Seeks Protection) Meningococcal B Vaccine: Consider Based On Risk (1 of 2 - Patient Seeks Protection) [facility] Start: 2021 MENINGOCOCCAL CONJUG ATE (2 - 2-dose series) MENINGOCOCCAL CONJUGATE (2 - 2-dose series) [facility] Start: 2021 Meningococcal Conjug ate Vaccine (2 - 2-dose series) Meningococcal Conjugate Vaccine (2 - 2-dose series) [facility] Start: 2020 CHLAMYDIA SCREENING (<18) CHLAMYDIA SCREENING (<18) [facility] Start: 2020 GC (GONORRHEA) SCREENING (<18) GC (GONORRHEA) SCREENING (<18) [facility] Start: 2019 PEDS TO ADULT TRANSITION ANNUAL ASSESSMENT PEDS TO ADULT TRANSITION ANNUAL ASSESSMENT [facility] Start: 2017 PEDS TO ADULT TRANSITION INITIAL DISCUSSION PEDS TO ADULT TRANSITION INITIAL DISCUSSION [facility] Start: 2015 MENINGOCOCCAL B: Consider based on risk (1 of 2 - Risk Bexsero 2-dose series) MENINGOCOCCAL B: Consider based on risk (1 of 2 - Risk Bexsero 2-dose series) [facility] Start: 2005 COVID-19 VACCINE (#1) COVID-19 VACCI NE (#1) [facility] End: 07-01-2023 Mri brain brain stem w/o contrast material MRI BRAIN WO IVCON Radiology Routine Nonintractable headache, unspecified chronicity pattern, unspecified headache type 1 Occurrences starting 06/01/2022 until 07/01/2023 [facility] Work Phone: Comment on above: 1 Occurrences starti ng 06/01/2022 until 07/01/2023 [facility] Immunizations Immunization Date Immunization Notes Care Provider Fa cili 02-08-2020 Human Papillomavirus 9-valent vaccine Enoc Foss MD Work Phone: [facility] 02-08-2020 influenza, injectabl e, quadrivalent, contains preservative Enoc Foss MD Work Phone: [facility] 02-08-2020 influenza virus vacc ine, unspecified formulation Raul Junior APRN.CNP Work Phone: [facility] 05-12-2017 Human Papillomavirus 9-valent vaccine Enoc Foss MD Work Phone: [facility] 05-12-2017 influenza, injectabl e, quadrivalent, contains preservative Enoc Foss MD Work Phone: [facility] 05-12-2017 meningococcal polysaccharide (groups A, C, Y and W-135) diphtheria toxoid conjugate vaccine (MCV4P) Enoc Foss MD Work Phone: [facility] 05-12-2017 tetanus toxoid, redu riki diphtheria toxoid, and acellular pertussis vaccine, adsorbed Enoc Foss MD Work Phone: [facility] 07-17-2010 diphtheria, tetanus toxoids and acellular pertussis vaccine Enoc Foss MD Work Phone: [facility] Work Phone: 07-17-2010 measles, mumps and rubella virus vaccine Enoc Foss MD Work Phone: [facility] Work Phone: 07-17-2010 poliovirus vaccine, inactivated Enoc Foss MD Work Phone: [facility] Work Phone: 07-17-2010 varicella virus vaccine Serafin Foss MD Work Phone: [facility] Work Phone: 02-04-2009 novel influenza-H1N1 -09, all formulations Enoc Foss MD Work Phone: [facility] Work Phone: 01-08-2009 influenza virus vacc ine, live, attenuated, for intranasal use Enoc Foss MD Work Phone: [facility] 06-13-2006 diphtheria, tetanus toxoids and acellular pertussis vaccine Enoc Foss MD Work Phone: [facility] 06-13-2006 haemophilus influenz ae type b vaccine, HbOC conjugate Enoc Foss MD Work Phone: [facility] 03-21-2006 influenza virus vacc ine, unspecified formulation Enoc Foss MD Work Phone: [facility] Work Phone: 03-21-2006 measles, mumps and rubella virus vaccine Enoc Foss MD Work Phone: [facility] Work Phone: 03-21-2006 pneumococcal conjuga te vaccine, 7 valent Enoc Foss MD Work Phone: [facility] Work Phone: 03-21-2006 varicella virus vaccine Serafin Foss MD Work Phone: [facility] Work Phone: 2005 DTaP-hepatitis B and poliovirus vaccine Enoc Foss MD Work Phone: [facility] 2005 haemophilus influenz ae type b vaccine, HbOC conjugate Enoc Foss MD Work Phone: [facility] 2005 pneumococcal conjuga te vaccine, 7 valent Enoc Foss MD Work Phone: [facility] 2005 DTaP-hepatitis B and poliovirus vaccine Enoc Foss MD Work Phone: [facility] Work Phone: 2005 haemophilus influenz ae type b vaccine, HbOC conjugate Enoc Foss MD Work Phone: [facility] Work Phone: 2005 pneumococcal conjuga te vaccine, 7 valent Enoc Foss MD Work Phone: [facility] Work Phone: 2005 DTaP-hepatitis B and poliovirus vaccine Enoc Foss MD Work Phone: [facility] 2005 haemophilus influenz ae type b vaccine, HbOC conjugate Enoc Foss MD Work Phone: [facility] 2005 pneumococcal conjuga te vaccine, 7 valent Enoc Foss MD Work Phone: [facility] 2005 hepatitis B vaccine, pediatric or pediatric/adolescent dosage Enoc Foss MD Work Phone: [facility] Work Phone: Payers Date Payer Category [id number] 2022 Unknown [id number] 2018 Unknown [id number] 2005 Unknown [facility] [id number] 2005 Unknown [id number] 2005 Unknown [id number] Unknown [id number] Social History Date Type Detail Facility Start: 01-26-2019 End: 05-17-2022 Tobacco smoking status NHIS Never smoked tobacco [facility] History of tobacco use Passive smoker [facility] Start: 01-26-2019 End: 05-17-2022 Tobacco use and exposure Smokeless tobacco non-user [facility] Start: 02-03-2021 End: 07-14-2023 Alcohol intake Not Asked [facility] Start: 01-26-2019 End: 05-17-2022 Tobacco Comment outside [facility] Start: 2005 Sex Assigned At Not on file [facility] Start: 09-07-2022 End: 04-24-2024 History of Social function [facility] Start: 09-07-2022 End: 04-24-2024 Tobacco use panel [facility] Start: 03-05-2012 National Score (1-10 0), lower number is lower risk 76 [facility] Start: 2005 Sex Assigned At Female [facility] Start: 04-24-2024 End: 11-23-2024 Alcoholic beverage intake Lifetime non-drinker (finding) [facility] Functional Status Date Assessment Result Facility 10-28-2014 Are you deaf, or do you have serious difficulty hearing No 10/28/2014 10:26 AM Hadley Alarcon RN [facility] 10-28-2014 Are you blind, or do you have serious difficulty seeing, even when wearing glasses No 10/28/2014 10:26 AM Hadley Alarcon RN [facility] 10-28-2014 Do you have serious difficulty walking or climbing stairs No 10/28/2014 10:26 AM EDT Hadley Steen RN No [facility] 10-28-2014 Do you have difficul ty dressing or bathing No 10/28/2014 10:26 AM EDT Hadley Steen RN No [facility] Mental Status Date Assessment Result Facility 10-28-2014 Because of a physica l, mental, or emotional condition, do you have serious difficulty concentrating, remembering, or making decisions No 10/28/2014 10:26 AM EDT Hadley Steen RN No [facility] Clinical Notes 04-12-2022 to 11-23-2024 Patient InstructionsTyesha Friedman MD - 11/23/2024 9:30 AM EDTTelephone Encounter - Thea May - 11/22/2024 11:20 AM EDTTelephone Encounter - Thea May - 11/22/2024 11:20 AM EDT Note Date & Type Note Facility 11-23-2024 Instructions Tyesha Friedman MD - 11/23/2024 9:33 AM EDT Images from the original note were not included. Headache Preventive Treatment: Please keep in mind that it takes 4-6 weeks for the medication to start working well and 2-3 months at the appropriate dose before deciding if it will be useful or not. If it is not helping at all by this time, then we will discuss other medications to try. Supplements may take 3-6 months until you see full effect. Natural supplements: Magnesium 400- 500 mg at bed Vitamin B2- 200 mg twice a day Coenzyme Q10 150 mg bid Alpha lipoic acid (Combination of the above can be found in MigraLief, Migravent- the latter contains butter krystal- must be PA free) Vitamins and herbs that show potential Magnesium: Magnesium (250 mg twice a day or 400/500 mg at bed) has a relaxant effect on smooth muscles such as blood vessels. Individuals suffering from frequent or daily headache usually have low magnesium levels which can be increase with daily supplementation of 400-750 mg. Three trials found 40-90% average headache reduction when used as a preventative. Magnesium also demonstrated the benefit in menstrually related migraine. Magnesium is part of the messenger system in the serotonin cascade and it is a good muscle relaxant. It is also useful for constipation which can be a side effect of other medications used to treat migraine. Good sources include nuts, whole grains, and tomatoes. Magnesium comes in many different forms: - Magnesium glycinate is a good choice for those with a sensitive stomach who have gastrointestinal side effects such as diarrhea with other forms of magnesium. It is anecdotally also helpful with anxiety and sleep. - Magnesium threonate also has low risk of gastrointestinal side effects and anecdotally helpful with cognitive function and brain fog symptoms. - Magnesium malate has low gastrointestinal side effects and is reportedly more energizing and anecdotally often helpful in fibromyalgia and chronic fatigue syndrome. - Magnesium citrate is one of the most studied, popular, and well-absorbed forms of magnesium. It can also be mixed easily with liquids if you can't take pills. However, it comes with a higher risk of diarrhea and gastrointestinal side effects, although this could be helpful for those with constipation. - Magnesium oxide is also well studied, cheap, and often used for heartburn and indigestion. However, it is not well absorbed and can have some laxative side effects as well, so can also be helpful for constipation. Riboflavin (vitamin B 2) 200 mg twice a day or 400 mg at night if this is easier to remember. This vitamin assists nerve cells in the production of ATP a principal energy storing molecule. It is necessary for many chemical reactions in the body. There have been at least 3 clinical trials of riboflavin using 400 mg per day all of which suggested that migraine frequency can be decreased. All 3 trials showed significant improvement in over half of migraine sufferers. The supplement is found in bread, cereal, milk, meat, and poultry. Most Americans get more riboflavin than the recommended daily allowance, however riboflavin deficiency is not necessary for the supplements to help prevent headache. Coenzyme Q10: This is present in almost all cells in the body and is critical component for the conversion of energy. Recent studies have shown that a nutritional supplement of CoQ10 can reduce the frequency of migraine attacks by improving the energy production of cells as with riboflavin. Doses of 150 mg twice a day have been shown to be effective. Consistency of active ingredients in different products can be a problem. Some formulations don't have the active ingredient (parthenolide) that prevents migraine. A parthenolide content of 0.2% is generally recommended. Typical dosage is one capsule 3 times a day. Vitamin D: Levels greater 30 to 40 ng/mL [place] 3: 1-3 gram- also a diet diet high in omega-3 fatty acids and low in omega-6 fatty acids. Sparce and inconclusive evidence for the use of Feverfew, Melatonin and Butterbur Feverfew: Feverfew is a common garden herb [place] and popular in [place] as a treatment for disorders typically controlled by aspirin. The mechanism of action is unknown but is believed to be related to a chemical called parthenolide which helps the body use serotonin more effectively. Serotonin helps prevent migraine and assists with resolution when it occurs. Parthenolide also inhibits the release of histamine which is linked to pain and inflammation. It can be a little more costly Melatonin: Increasing evidence shows correlation between melatonin secretion and headache conditions. Melatonin supplementation has decreased headache intensity and duration. It is widely used as a sleep aid. Sleep is natures way of dealing with migraine. A dose of 3 mg is recommended to start for headaches including cluster headache. Higher doses up to 15 mg has been reviewed for use in Cluster headache and have been used. The rationale behind using melatonin for cluster is that many theories regarding the cause of Cluster headache center around the disruption of the normal circadian rhythm in the brain. This helps restore the normal circadian rhythm. Cyndi: Cyndi has a small amount of antihistamine and anti-inflammatory action which may help headache. It is primarily used for nausea and may aid in the absorption of other medications. HEADACHE DIET: Foods and beverages which may trigger migraine Note that only 20% of headache patients are food sensitive. You will know if you are food sensitive if you get a headache consistently 20 minutes to 2 hours after eating a certain food. Only cut out a food if it causes headaches, otherwise you might remove foods you enjoy! What matters most for diet is to eat a well balanced healthy diet full of vegetables and low fat protein, and to not miss meals. Chocolate, other sweets ALL cheeses except cottage and cream cheese Dairy products, yogurt, sour cream, ice cream Liver Meat extracts (Bovril, Marmite, meat tenderizers) Meats or fish which have undergone aging, fermenting, pickling or smoking. These include: Hotdogs,salami,Lox,sausage, mortadellas,smoked salmon, pepperoni, Pickled perea Pods of broad guevara (Wallisian beans, Kazakh pea pods, Afghan (lianna) beans, walls and navy beans Ripe avocado, ripe banana Yeast extracts or active yeast preparations such as Ross's or Shamar's (commercial bakes goods are permitted) Tomato based foods, pizza (lasagna, etc.) MSG (monosodium glutamate) is disguised as many things; look for these common aliases: Monopotassium glutamate Autolysed yeast Hydrolysed protein Sodium caseinate flavorings all natural preservatives Nutrasweet Avoid all other foods that convincingly provoke headaches. Headache Prevention Strategies: 1. Maintain a headache diary; learn to identify and avoid triggers. Common triggers include: Emotional triggers: Emotional/Upset family or friends Emotional/Upset occupation Business reversal/success Anticipation anxiety Crisis-serious Post-crisis periodNew job/position Physical triggers: Vacation Day Weekend Strenuous Exercise High Altitude Location New Move Menstrual Day Physical Illness Oversleep/Not enough sleep Weather changes Light: Photophobia or light sesnitivity treatment involves a balance between desensitization and reduction in overly strong input. Use dark polarized glasses outside, but not inside. Avoid bright or fluorescent light, but do not dim environment to the point that going into a normally lit room hurts. Consider FL-41 tint lenses, which reduce the most irritating wavelengths without blocking too much light. These can be obtained at Descubre.la.Petpace or TrackMaven.Petpace Foods: see list above. 2. Limit use of acute treatments (ybmr-laj-hwyvibz medications, triptans, etc.) to no more than 2 days per week or 10 days per month to prevent medication overuse headache (rebound headache). 3. Follow a regular schedule (including weekends and holidays): Don't skip meals. Eat a balanced diet. 8 hours of sleep nightly. Trouble sleeping- Go! to Sleep, [facility] s clinically developed, 6-week online course for improving sleep, teaches you to identify and then reframe specific thoughts and behaviors that are interfering with your ability to sleep deeply - all in the comfort and privacy of your own bedroom [email or web address] hospitalXingshuai [facility]. com/pages/Melissa.htm Minimize stress. Exercise 30 minutes per day. Being overweight is associated with a 5 times increased risk of chronic migraine. Keep well hydrated and drink 6-8 glasses of water per day. 4. Initiate non-pharmacologic measures at the earliest onset of your headache. Rest and quiet environment. Cold compresses. http://RocketBank.Petpace is a free website that provides teaching videos on relaxation. There are several excellent relaxation apps available for various platforms that offer guided meditation, breathing exercises, sleep aids, and stress reduction techniques. Here are some popular ones: Headspace: Offers guided meditation sessions, mindfulness exercises, and sleep aids to reduce stress and improve sleep quality. Calm: Provides guided meditation sessions, breathing exercises, sleep stories, and relaxing music to reduce anxiety and improve overall well-being. Insight Timer: Offers a vast library of guided meditations, music tracks, and talks from mindfulness experts to help users relax, reduce stress, and improve focus. Ocenka4Nmxhl: Information on the effects of stress on the body and instructions and practice exercises to help users learn the stress management Aura: Personalizes meditation sessions, breathing exercises, and mindfulness practices based on users' mood and preferences Smiling Mind: Offers mindfulness and meditation programs designed for different age groups, including kids, teens, and adults, to promote relaxation and stress reduction. Simple Habit: Guided meditation sessions, mindfulness exercises, and sleep aids tailored to users' specific needs, including stress reduction, better sleep, and improved focus. Stop, Breathe & Think: Guided meditation sessions, mindful breathing exercises, and mood tracking tools to help users reduce stress, anxiety, and improve emotional well-being. Omvana: Features a wide range of meditation tracks, ambient sounds, and guided sessions curated by experts to promote relaxation, stress reduction, and mindfulness. Relax Melodies: Offers a variety of soothing sounds, white noise, nature sounds, and guided meditations to help users relax, reduce stress, and improve sleep quality [place] [employer].Petpace: a biofeedback valentina. Complete the Geofusionva diary every day (should take 1-2 minutes) and aim to participate in the Browsercast.com valentina relaxation training sessions 4 or more times a week for 20 minutes or more. These apps can be easily downloaded from valentina stores on iOS and Android devices, and many offer free versions with optional premium subscriptions for access to additional features and content. It's a good idea to explore a few apps to find the one that best fits your preferences and needs for relaxation and stress reduction. 5. Don't wait!! Take the maximum allowable dosage of prescribed medication at the first sign of migraine. 6. Compliance: Take prescribed medication regularly as directed and at the first sign of a migraine. 7. Communicate: Call your physician when problems arise, especially if your headaches change, increase in frequency/severity, or become associated with neurological symptoms (weakness, numbness, slurred speech, etc.). 8. Headache/pain management therapies: Consider various complementary methods, including medication, behavioral therapy, psychological counselling, biofeedback, massage therapy, acupuncture, dry needling, and other modalities. Such measures may reduce the need for medications. Counseling for pain management, where patients learn to function and ignore/minimize their pain, seems to work very well. 9. Recommend changing family's attention and focus away from patient's headaches. Instead, emphasize daily activities. If first question of day is 'How are your headaches/Do you have a headache today?', then patient will constantly think about headaches, thus making them worse. Goal is to re-direct attention away from headaches, toward daily activities and other distractions. 10. Helpful Websites: my.[facility].org/departmen ts/wellness/patient-resources/in structional-videos AmericanHeadacheSociety.org Americanmigrainefoundation.org Chronicmigraineawareness.org Headaches.org Migrainedisorders.org Migrainetrust.org Milesformigraine.org Virtualheadachespecialist.com [facility].co 11. HEADACHE EXPECTATIONS: There are many types of headaches, and only a rare few in which complete relief can be expected. In general, there is no cure for headache, especially migraine based headaches. There is nothing available that completely prevents headaches from occurring, breaking through, or having periodic flare-ups and fluctuations. Regardless of what you are using on a daily basis for prevention, episodic headaches should still be expected, and periods where frequency may escalate and fluctuate are unavoidable. There is no quick fix for most headaches. Furthermore, the longer you have had high frequency headaches (such as chronic daily headache), the longer it will likely take to expect any improvement. In fact, some people will never improve, regardless of how many medications or other treatments we try. Our treatment strategy is to evaluate for possible causes of your headache, although testing is usually always normal, even in cases of daily continuous headaches for years. Most types of headache such as migraine are electrical brain disorders (similar to how epilepsy is an electrical brain disorders). Therefore, there is no testing that will reveal this dysfunctional electrical circuitry such on MRI, or other testing. We try to find a medication that may help lessen the frequency and/or severity of your headaches. The goal is not to completely stop them from happening, although if that happens, great! Different people respond to different medications, and some people just don't respond to anything, so it's usually a matter of trying different options. We can not predict if or when exactly you will respond to a treatment that we provide. Preventive headache medications take 4-6 weeks to start working, and 2-3 months to see full effect, assuming you reach an effective dose. Therefore, calling or messaging frequently because you have a headache flare prior to the 3 month cliff is unlikely to change anything, and unfortunately there is nothing available that will expedite this, so please try to avoid this. Our recommendation will generally be to give it adequate time first. If you are unable to wait it out for medications to work, we can also try IV infusions for some temporary relief. O In general, the best that preventive medications or other treatments (including Botox) are able to offer in migraine management (variable in other headache types) is a 50% improvement in frequency and/or severity of headache. That is our goal, and any additional benefit is considered a bonus. Some people do significantly better than this, others do not get close to this. Therefore, if your headaches are not improving by at least 3 months on your preventive strategy, contact us and we can discuss further adjustments. Keep in mind that complete headache cure is not a realistic expectation. Our Team: The nursing staff, and medical assistants are a major part of YOUR TREATMENT TEAM and will be handling your phone calls and inquiries, if any. Unless explicitly told otherwise at the time of your office visit, your study results and ensuing treatment plans will be released via [employer] and discussed during your follow-up appointment. Follow-up appointments are primarily provided by the Nurse Practioners and Physician s Assistants in order to provide timely, accessible care. Data Sciences Internationalhart: Please ask the schedulers to give you an activation code. The main way of communication is by Repairyt rather than phone lines, so if you have not signed up, please do so. [employer] is also the way that you can review your labs and testing. We are not able to contact everyone to tell them results are normal. If you do not hear back from us regarding testing you have had, it should be considered normal or within normal range. If you have any questions about the results, you are free to message us. MyChart is meant for simple questions regarding medications, possible side effects, or other simple straight forward questions in limited sentences, rather than multiple paragraphs of discussion. MyChart is not meant for, or efficient for these complex questions, extensive questions, extensive medication adjustments, complex new symptoms or concerns. These issues beyond simple questions require a follow up visit with myself, one of our physician assistants, nurse practitioners, or a Virtual Visit via computer or smart phone, as detailed further down. Refills: Please pay attention to when your refills will need to be renewed. Due to the volume of phone calls daily, this could potentially take a few days, although we certainly try to honor your refill requests as soon as we can. You should call at least 1 week in advance of needing a refill to ensure you do not run out of medication. Keep in mind that refill requests on Fridays may not be filled until the following week. The Headache and Facial Pain Section does not complete disability or any other insurance-related forms/documention. We will complete FMLA forms. All of the office notes, study results, and other pertinent documentation generated as part of your evaluation will be available to you and to your Primary Care Physician (PCP). Use of this material to complete such forms will be at the discretion of your PCP/referring physician. Movement Matters: Mind, Body & Advocacy The Race for a Migraine Cure Begins with You Join us for the Annual Miles for Migraine [place] Walk, Run or Relax Event This event is a senior contracts administrator for Migraine & Headache Awareness, Treatment & Research. Dress up in your best purple flair for a chance at a fun prize! When: Typically occurs in October each year This 2024 Date LIVE: October 13, 2024 9:30 AM EST VIRTUAL: October 11-2024 Distance 2 Mile Walk / 5K Run / Relax Location [place], [place] All funds raised will benefit local migraine and headache research and fellowship training programs at the [facility] and [facility] (participants should select [facility] as their beneficiary when they register) https://clev.Agency Entourage.or g/ For more information on migraine and free educational events go to https://www.Perfusixaine.org / [employer]aka For Migraine - Finding a Cure for Migraine Begins with You [employer] for Migraine is a nonprofit dedicated to improving the lives of migraine patients, raising public awareness, and finding a cure for migraine diseases. www.Mentor Meformigraine.org documented in this encounter [facility] 11-23-2024 History of Presen t illness Narrative Images from the original note were not included. Headache Center - Follow up Visit Recording using Peg Bandwidth software for draft documentation of the visit was discussed with the patient/authorized retail account representative; all questions welcomed and answered. Patient/authorized retail account representative agreed to proceed Chief Complaint: migraine TAMICA 3 months ago. Interval Headache Hx: Eron Villatoro is a 19-year-old female presenting for follow-up on migraine management. Eron reports a significant reduction in migraine frequency since starting Ajovy, with episodes decreasing from 26 days per month to approximately 12 days per month. She has completed three treatments and notes a 50% improvement. However, she continues to experience severe pain during episodes, rating it as a 7/10. Migraines still necessitate bed rest about twice a month, a reduction from once a week previously. She identifies menstruation as a primary trigger but does not report auras and is not on control. For acute management, she uses eletriptan, which she finds effective and free of side effects. She also takes Reglan for nausea and is on Topamax and Migravent supplement of B2, Mg, CoQ10 for migraine prevention. She believes Topamax has been beneficial and wishes to continue it. Additionally, she takes Lexapro 20 mg daily for mood. Eron does not endorse any new health problems and reports no significant changes in family or social history. Headache 1 Location: bilateral, temporal and frontal Quality/Description: throbbing Associated Symptoms: Photophobia: yes Phonophobia: yes Nausea: yes - on occasion Vomiting: yes - rare Other symptoms: rhinorrhea and lacrimation (flushed in face) Worse with activity: yes Number of migraine headache days/month: 12 Migraine headache severity: 7 (debilitating 2 days a month)/10 Number of NON-migraine headache days/month: 0 Total Number of headache days/month: 12 Number of headache free days/month: 4 Current preventive treatment: Topamax and Migravent; Ajovy; Lexapro for her mood Current abortive treatment: Eletriptan + Reglan Days missed from work or school in the last month: 1 days I have reviewed the [facility] Status Assessment responses and discussed these with the patient: no, patient did not complete Tyesha Friedman MD HEADACHE SCORES: 07/14/2023 05/29/2024 Headache Questions ER visits since last office visit: 0 1 Hospital stays since last office visit 0 0 Limited ADLs in the last month: 3 3 Days missed from work or school in the last month: 1 1 Days headache pain free in the last month: 19 14 Days per month with ALL of the following symptoms - decreased productivity, light sensitivity and nausea: 0 2 Initial improvement of headache after botox injection at last visit: Not applicable, I did not have a botox injection at my last visit Not applicable, I did not have a botox injection at my last visit PRN medication usage in the last month: 4 5 Patient impression of improvement since last visit: Minimally improved Minimally improved 07/14/2023 05/29/2024 HIT-6 HIT-6 67 (Severe impact) 65 (Severe impact) 07/14/2023 05/29/2024 LEONA - 2/7 SCORES LEONA-2 Score 6 4 LEONA-7 Score 20 13 07/14/2023 05/29/2024 Migraine Specific QOL - Higher scores indicate better HRQL Role Function-Restrictive Transformed Score (range: 0-100) 34.29 34.29 Role Function-Preventive Transformed Score (range: 0-100) 60 35 Emotional Function Transformed Score (range: 0-100) 20 20 07/14/2023 05/30/2024 PHQ-9 Score 17 8 Data saved with a previous flowsheet row definition Studies to Review: No New Health Issues: No New Social History: No New Family History: No PHYSICAL EXAMINATION: Vital Signs: BP 125/72 Pulse 70 Wt 251 lb 12.3 oz (114.2kg) SpO2 100% LMP 11/19/2024 General: Alert and oriented. Answered questions in an appropriate manner. Made eye contact without apparent pain behavior. HEENT: Head is normocephalic and features were symmetric. Cranial Nerves: II: Pupils: symmetric Ill,lV,Vl: nl eye movements VII: Face symmetric. Motor: Bulk: Normal for age and gender. No abnormal movements were appreciated. Gait: Unassisted, normal Normal stride length, base, and normal arm swing. Impression/Plan: Eron Villatoro is a 19 year old female seen today for followup. 1. Chronic migraine with aura without status migrainosus, not intractable (G43.E09) 2. Migraine without aura and without status migrainosus, not intractable (G43.009) 3. Menstrual migraine without status migrainosus, not intractable (G43.829) - Chronic migraines with and without aura, previously occurring 26 days/month, now reduced to approximately 12 days/month (about 50% improvement) since starting Ajovy; pain severity remains at 7/10. - Menstrual migraines remain a significant trigger. - Continue Ajovy injections; patient reports improvement and no issues with cost or administration. - Continue Topamax and Migravent as current regimen is effective. - Continue eletriptan for acute migraine management; patient reports good efficacy and no side effects. - Continue Reglan for nausea as needed. - Continue Lexapro 20 mg daily for mood. - Discussed potential addition of omega-3s and alpha lipoic acid as adjunctive supplements. - Advised on potential benefits of yoga or Pilates to increase endorphins and strengthen core. - Discussed menstrual migraine management options, including continuous control or IUD; patient not currently on control and does not desire . - Follow-up in 6 months; patient to call sooner if needed. Level of service: Est level 3 (20-29 min). Time spent 21 min on the day of service, which included preparing to see the patient, [id number] patient care, completing clinical documentation, obtaining and/or reviewing separately obtained history, performing a medically appropriate examination, and counseling and educating the patient/family/caregiver. Tyesha Friedman MD documented in this encounter [facility] 11-23-2024 Note HNO ID: [id number] Author: TYESHA FRIEDMAN MD Service: ? Author Type: Physician Type: Progress Notes Filed: 11/23/2024 09:39 Note Text: Headache Center - Follow up Visit Recording using [employer] software for draft documentation of the visit was discussed with the patient/authorized retail account representative; all questions welcomed and answered. Patient/authorized retail account representative agreed to proceed Chief Complaint: migraine TAMICA 3 months ago. Interval Headache Hx: Eron Villatoro is a 19-year-old female presenting for follow-up on migraine management. Eron reports a significant reduction in migraine frequency since starting Ajovy, with episodes decreasing from 26 days per month to approximately 12 days per month. She has completed three treatments and notes a 50% improvement. However, she continues to experience severe pain during episodes, rating it as a 7/10. Migraines still necessitate bed rest about twice a month, a reduction from once a week previously. She identifies menstruation as a primary trigger but does not report auras and is not on control. For acute management, she uses eletriptan, which she finds effective and free of side effects. She also takes Reglan for nausea and is on Topamax and Migravent supplement of B2, Mg, CoQ10 for migraine prevention. She believes Topamax has been beneficial and wishes to continue it. Additionally, she takes Lexapro 20 mg daily for mood. Eron does not endorse any new health problems and reports no significant changes in family or social history. Headache 1 Location: bilateral, temporal and frontal Quality/Description: throbbing Associated Symptoms: Photophobia: yes Phonophobia: yes Nausea: yes - on occasion Vomiting: yes - rare Other symptoms: rhinorrhea and lacrimation (flushed in face) Worse with activity: yes Number of migraine headache days/month: 12 Migraine headache severity: 7 (debilitating 2 days a month)/10 Number of NON-migraine headache days/month: 0 Total Number of headache days/month: 12 Number of headache free days/month: 4 Current preventive treatment: Topamax and Migravent; Ajovy; Lexapro for her mood Current abortive treatment: Eletriptan + Reglan Days missed from work or school in the last month: 1 days I have reviewed the [employer] Status Assessment responses and discussed these with the patient: no, patient did not complete Tyesha Friedman MD HEADACHE SCORES: 07/14/2023 05/29/2024 Headache Questions ER visits since last office visit: 0 1 Hospital stays since last office visit 0 0 Limited ADLs in the last month: 3 3 Days missed from work or school in the last month: 1 1 Days headache pain free in the last month: 19 14 Days per month with ALL of the following symptoms - decreased productivity, light sensitivity and nausea: 0 2 Initial improvement of headache after botox injection at last visit: Not applicable, I did not have a botox injection at my last visit Not applicable, I did not have a botox injection at my last visit PRN medication usage in the last month: 4 5 Patient impression of improvement since last visit: Minimally improved Minimally improved 07/14/2023 05/29/2024 HIT-6 HIT-6 67 (Severe impact) 65 (Severe impact) 07/14/2023 05/29/2024 LEONA - 2/7 SCORES LEONA-2 Score 6 4 LEONA-7 Score 20 13 07/14/2023 05/29/2024 Migraine Specific QOL - Higher scores indicate better HRQL Role Function-Restrictive Transformed Score (range: 0-100) 34.29 34.29 Role Function-Preventive Transformed Score (range: 0-100) 60 35 Emotional Function Transformed Score (range: 0-100) 20 20 07/14/2023 05/30/2024 PHQ-9 Score 17 8 Data saved with a previous flowsheet row definition Studies to Review: No New Health Issues: No New Social History: No New Family History: No PHYSICAL EXAMINATION: Vital Signs: BP 125/72 Pulse 70 Wt 251 lb 12.3 oz (114.2kg) SpO2 100% LMP 11/19/2024 General: Alert and oriented. Answered questions in an appropriate manner. Made eye contact without apparent pain behavior. HEENT: Head is normocephalic and features were symmetric. Cranial Nerves: II: Pupils: symmetric Ill,lV,Vl: nl eye movements VII: Face symmetric. Motor: Bulk: Normal for age and gender. No abnormal movements were appreciated. Gait: Unassisted, normal Normal stride length, base, and normal arm swing. Impression/Plan: Eron Villatoro is a 19 year old female seen today for followup. 1. Chronic migraine with aura without status migrainosus, not intractable (G43.E09) 2. Migraine without aura and without status migrainosus, not intractable (G43.009) 3. Menstrual migraine without status migrainosus, not intractable (G43.829) - Chronic migraines with and without aura, previously occurring 26 days/month, now reduced to approximately 12 days/month (about 50% improvement) since starting Ajovy; pain severity remains at 7/10. - Menstrual migraines remain a significant trigger. - Krish (more content not included)... [facility] 11-22-2024 Telephone encounter Note Ambulatory Pharmacy Prior Authorization Note Provider Intervention Required?: No - Pharmacy completed on your behalf. Was the PA documented within the ePA workqueue?: Yes Drug: MANJU View the status history of the prior authorization in the Auth Tab within Chart Review Additional Information: PLEASE NOTE: Pt will need follow up office visit to review/document efficacy and tolerability of treatment before prior auth expiration. Please ensure a future follow up appt is scheduled with your patient. This will ensure no interruption in patient's ability to obtain medication refills. Prescriptions will now be processed through [facility] for determination of next steps. For questions relating to this submission, please contact [facility] at [phone] [facility] 11-22-2024 Miscellaneous Notes Ambulatory Pharmacy Prior Authorization Note Provider Intervention Required?: No - Pharmacy completed on your behalf. Was the PA documented within the ePA workqueue?: Yes Drug: MANJU View the status history of the prior authorization in the Auth Tab within Chart Review Additional Information: PLEASE NOTE: Pt will need follow up office visit to review/document efficacy and tolerability of treatment before prior auth expiration. Please ensure a future follow up appt is scheduled with your patient. This will ensure no interruption in patient's ability to obtain medication refills. Prescriptions will now be processed through [facility] for determination of next steps. For questions relating to this submission, please contact [facility] at [phone] documented in this encounter [facility] 10-30-2024 Telephone encounter Note Patient last seen 08/20/24 [facility] 10-30-2024 Miscellaneous Notes Patient last seen 08/20/24 documented in this encounter [facility] 08-20-2024 Instructions Tyesha Friedman MD - 08/20/2024 1:38 PM EDT Start taking Relpax at the first sign of a migraine; you may take it together with Aleve and a nausea medication (metoclopramide) at the onset of symptoms. Begin your new prescription for Ajovy 225 mg to be self-injected once a month. Remove it from the refrigerator about 30 minutes before injection and inject it into your thigh or stomach following the instructions provided. Continue taking Topamax 100 mg daily as well as your current 10 mg Lexapro. Use Aleve for headache relief no more than 2 days per week (less than 10 days per month) to avoid rebound headaches. Start keeping a headache diary: rate your headache severity on a scale from 0 (no pain) to 3 (severe, debilitating pain) and note the frequency and any triggers. Schedule a follow-up appointment in about 3 months to review your progress. If you are unable to come in person, a virtual visit is an option. documented in this encounter [facility] 08-20-2024 History of Presen t illness Narrative Images from the original note were not included. Headache Center - Follow up Visit Recording using Peg [employer] software for draft documentation of the visit was discussed with the patient/authorized retail account representative; all questions welcomed and answered. Patient/authorized retail account representative agreed to proceed TAMICA with Radha Marie PA-C 05/30/2024 Chief Complaint: migriane Interval Headache Hx: Eron is a 19-year-old female with a history of chronic migraines presenting for follow-up. Eron reports that the nature of her headaches has remained consistent since her last visit in May. She experiences throbbing pain in the front and temples, with severe migraines occurring approximately once a week. These migraines are described as debilitating and sometimes confine her to bed. She also experiences less severe headaches almost daily, with 1 headache-free day per week. She notes that Topamax has helped manage the frequency and severity of her headaches. She reports that Aleve is the only medication that effectively alleviates her headaches. She takes Aleve at least twice a week and does not exceed this frequency to avoid rebound headaches. Tylenol and Advil are no longer effective for her. She does not endorse auras but has recently started experiencing nausea with her headaches, which was not previously a symptom. She has tried various medications for her migraines without success. Nurtec was ineffective, and she ended up in the ER for a severe migraine after taking it. Rizatriptan caused disorientation, and sumatriptan was not effective. She is unsure if she still has naratriptan (Amerge) and is not currently using it. She is currently trying to obtain Ubrelvy, but her insurance has not approved it yet. She reports that her migraines are triggered by weather changes and her menstrual cycle. 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 She sleeps well at night and reports a good mood. She is currently taking Lexapro 10 mg daily. She has a family history of migraines, with her grandmother also experiencing them. She has not been on beta blockers or blood pressure medications. She does not endorse constipation or other new health problems. 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 Headache 1 Location: bilateral, temporal and frontal Quality/Description: throbbing Associated Symptoms: Photophobia: yes Phonophobia: yes Nausea: yes - on occasion Vomiting: yes - rare Other symptoms: rhinorrhea and lacrimation (flushed in face) Worse with activity: yes Number of migraine headache days/month: 26 Migraine headache severity: 7 (debilitating once a week - she has to go to bed with a headache)/10 Number of NON-migraine headache days/month: 0 Total Number of headache days/month: 26 Number of headache free days/month: 4 Current preventive treatment: Topamax and Migravent Current abortive treatment: Ubrogepant Days missed from work or school in the last month: 1 days I have reviewed the Ze[employer] Status Assessment responses and discussed these with the patient: no, patient did not complete Tyesha Friedman MD HEADACHE SCORES: 07/14/2023 05/29/2024 Headache Questions ER visits since last office visit: 0 1 Hospital stays since last office visit 0 0 Limited ADLs in the last month: 3 3 Days missed from work or school in the last month: 1 1 Days headache pain free in the last month: 19 14 Days per month with ALL of the following symptoms - decreased productivity, light sensitivity and nausea: 0 2 Initial improvement of headache after botox injection at last visit: Not applicable, I did not have a botox injection at my last visit Not applicable, I did not have a botox injection at my last visit PRN medication usage in the last month: 4 5 Patient impression of improvement since last visit: Minimally improved Minimally improved 07/14/2023 05/29/2024 HIT-6 HIT-6 67 (Severe impact) 65 (Severe impact) 07/14/2023 05/29/2024 LEONA - 2/7 SCORES LEONA-2 Score 6 4 LEONA-7 Score 20 13 07/14/2023 05/29/2024 Migraine Specific QOL - Higher scores indicate better HRQL Role Function-Restrictive Transformed Score (range: 0-100) 34.29 34.29 Role Function-Preventive Transformed Score (range: 0-100) 60 35 Emotional Function Transformed Score (range: 0-100) 20 20 07/14/2023 05/30/2024 PHQ-9 Score 17 8 Studies to Review: No New Health Issues: No 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 Answered questions in an appropriate manner. Made eye contact without apparent pain behavior. HEENT: Head is normocephalic and features were symmetric. Cranial Nerves: II: Pupils: symmetric Ill,lV,Vl: nl eye movements VII: Face symmetric. Motor: Bulk: Normal for age and gender. No abnormal movements were appreciated. Gait: Unassisted, normal Normal stride length, base, and normal arm swing. Impression/Plan: Eron Villatoro is a 19 year old female seen today for followup. 1. Chronic migraine with aura without status migrainosus, not intractable (G43.E09) 2. Migraine without aura and without status migrainosus, not intractable (G43.009) 3. Menstrual migraine without status migrainosus, not intractable (G43.829) - Chronic migraines remain frequent and severe, with 1-2 debilitating episodes per week. No auras reported. - Previous treatments including Nurtec, rizatriptan, and sumatriptan were ineffective or poorly tolerated. - Current prophylactic treatment with Topamax 100 mg daily provides partial relief, with 1-2 headache-free days per week. - Initiated Ajovy 225 mg subcutaneous injection once monthly. Discussed potential side effects and benefits. - Prescribed Relpax to be taken at onset of migraine, can be combined with Aleve and metoclopramide for nausea management as well as increase absorption of other medications.. - Educated on potential triggers including stress, dietary factors, and hormonal changes. Advised to maintain a headache diary to monitor frequency and severity. - Follow-up in 3 months to assess efficacy of Ajovy and adjust treatment plan as necessary. We will request precertification for Calcitonin Gene Related Peptide Monoclonal Antibody, Fremanezumab. This patient meets ICHD-3 criteria for treatment with CGRP MAB, She has Chronic Migraine Headache (CM), Chronic Migraine without aura, without mention of intractable migraine without mention of status migrainosus which occurs at least 15 days per month for at least 4 hours per day. The FDA has approved CGRP MAB for prevention of migraine. Specifically, the patient has 26 migraines per month, lasting 4 or more hours/d associated with photophobia, phonophobia, nausea, worse with movement, relieved in supine position for three or more months. Medication overuse headache has been ruled out. Patient is not currently taking a Gepant for acute treatment of her migraine. The following preventative medications have been tried for 3 or more months without benefit or discontinued due and/or side effects. Anti-Convulsant Topiramate (Topamax, Trokendi XL, Qudexy) one year still taking Anti-Depressant and Antipsychotic Escitalopram (Lexapro) since 2020 currently taking Fluoxetine (Prozac) Sertraline (Zoloft) The following abortive medications have been tried but require high frequency use which can lead to Medication Overuse Headache: Anti-Migraine Naratriptan (Amerge) not that effective Rizatriptan (Maxalt) disorientation Sumatriptan (Imitrex, Sumavel) ineffective GEPANTS Ubrogepant (Ubrelvy) coud not get it approved Rimegepant (Nurtec) did not work- tried several times Over the Counter Medications Acetaminophen (Tylenol) ineffective Acetaminophen/Aspirin/Caffeine (Excedrin, Goody s) ineffective Ibuprofen (Advil, Motrin) ineffective Naproxen sodium (Aleve) still taking Level of service: Est level 4 (30-39 min). Time spent 30 min on the day of service, which included [id number] patient care, completing clinical documentation, obtaining and/or reviewing separately obtained history, performing a medically appropriate examination, counseling and educating the patient/family/caregiver, and ordering medications, tests, or procedures. Tyesha Friedman MD documented in this encounter [facility] 08-20-2024 Note HNO ID: [id number] Author: TYESHA FRIEDMAN MD Service: ? Author Type: Physician Type: Progress Notes Filed: 08/20/2024 13:38 Note Text: Headache Center - Follow up Visit Recording using Peg [employer] software for draft documentation of the visit was discussed with the patient/authorized retail account representative; all questions welcomed and answered. Patient/authorized retail account representative agreed to proceed TAMICA with Radha Marie PA-C 05/30/2024 Chief Complaint: migriane Interval Headache Hx: Eron is a 19-year-old female with a history of chronic migraines presenting for follow-up. Eron reports that the nature of her headaches has remained consistent since her last visit in May. She experiences throbbing pain in the front and temples, with severe migraines occurring approximately once a week. These migraines are described as debilitating and sometimes confine her to bed. She also experiences less severe headaches almost daily, with 1 headache-free day per week. She notes that Topamax has helped manage the frequency and severity of her headaches. She reports that Aleve is the only medication that effectively alleviates her headaches. She takes Aleve at least twice a week and does not exceed this frequency to avoid rebound headaches. Tylenol and Advil are no longer effective for her. She does not endorse auras but has recently started experiencing nausea with her headaches, which was not previously a symptom. She has tried various medications for her migraines without success. Nurtec was ineffective, and she ended up in the ER for a severe migraine after taking it. Rizatriptan caused disorientation, and sumatriptan was not effective. She is unsure if she still has naratriptan (Amerge) and is not currently using it. She is currently trying to obtain Ubrelvy, but her insurance has not approved it yet. She reports that her migraines are triggered by weather changes and her menstrual cycle. 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 She sleeps well at night and reports a good mood. She is currently taking Lexapro 10 mg daily. She has a family history of migraines, with her grandmother also experiencing them. She has not been on beta blockers or blood pressure medications. She does not endorse constipation or other new health problems. 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 Headache 1 Location: bilateral, temporal and frontal Quality/Description: throbbing Associated Symptoms: Photophobia: yes Phonophobia: yes Nausea: yes - on occasion Vomiting: yes - rare Other symptoms: rhinorrhea and lacrimation (flushed in face) Worse with activity: yes Number of migraine headache days/month: 26 Migraine headache severity: 7 (debilitating once a week - she has to go to bed with a headache)/10 Number of NON-migraine headache days/month: 0 Total Number of headache days/month: 26 Number of headache free days/month: 4 Current preventive treatment: Topamax and Migravent Current abortive treatment: Ubrogepant Days missed from work or school in the last month: 1 days I have reviewed the [facility] Status Assessment responses and discussed these with the patient: no, patient did not complete Tyesha Friedman MD HEADACHE SCORES: 07/14/2023 05/29/2024 Headache Questions ER visits since last office visit: 0 1 Hospital stays since last office visit 0 0 Limited ADLs in the last month: 3 3 Days missed from work or school in the last month: 1 1 Days headache pain free in the last month: 19 14 Days per month with ALL of the following symptoms - decreased productivity, light sensitivity and nausea: 0 2 Initial improvement of headache after botox injection at last visit: Not applicable, I did not have a botox injection at my last visit Not applicable, I did not have a botox injection at my last visit PRN medication usage in the last month: 4 5 Patient impression of improvement since last visit: Minimally improved Minimally improved 07/14/2023 05/29/2024 HIT-6 HIT-6 67 (Severe impact) 65 (Severe impact) 07/14/2023 05/29/2024 LEONA - 2/7 SCORES LEONA-2 Score 6 4 LEONA-7 Score 20 13 07/14/2023 05/29/2024 Migraine Specific QOL - Higher scores indicate better HRQL Role Function-Restrictive Transformed Score (range: 0-100) 34.29 34.29 Role Function-Preventive Transformed Score (range: 0-100) 60 35 Emotional Function Transformed Score (range: 0-100) 20 20 07/14/2023 05/30/2024 PHQ-9 Score 17 8 Studies to Review: No New Health Issues: No 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 Answered questions in an appropriate manner. Made eye contact without apparent pain behavior. HEENT: Head is normocephalic and (more content not included)... [facility] 06-22-2024 Telephone encounter Note Answered questions in EPA Pool; UbrelvyNTLESSTR Medication:ubrogepant (UBRELVY) 50 mg tablet More Information Standard Prior Auth Reply deadline: June 13, 2024 Payer: Kaia Esther Alba MA [facility] 06-22-2024 Miscellaneous Notes Answered questions in EPA Pool; UbrelvyNTLESSTR Medication:ubrogepant (UBRELVY) 50 mg tablet More Information Standard Prior Auth Reply deadline: June 13, 2024 Payer: Bath Esther Alba MA ERON VILLATORO ([place]abon: [id number]) [place] Drug Ubrelvy 50MG tablets Form [facility] [place] Form (2016 NCPDP) A new prior authorization ([place]) request cannot be started at this time because there is a request already open for this drug with CoverMyMeds. Please contact the [place] call center if you have questions on the status of this request Esther Alba MA documented in this encounter [facility] 06-22-2024 Telephone encounter Note ERON VILLATORO ([place]on: [id number]) [place] Drug Ubrelvy 50MG tablets Form [facility] [place] Form (2016PDP) A new prior authorization ([place]) request cannot be started at this time because there is a request already open for this drug with CoverMyMeds. Please contact the [place] call center if you have questions on the status of this request Esther Alba MA [facility] 05-30-2024 Instructions Del Marie PA-C - 05/30/2024 1:55 PM EST Topiramate 100 mg; take 1.5 tablets nightly to see if migraines will reduce. Stop nurtec; not effective. Start ubrelvy 50 mg tablet if approved for migraine rescue. ; Take at onset of a moderate to severe migraine, if not completely gone in 2 hours you may repeat the dose x 1. Maximum of 2 doses in 24 hour Typically we prefer 100 mg tablet of ubrelvy for migraine rescue; your insurance is not wanting to cover. See if you can find a coupon card and if so, notify me to send a new prescription to the pharmacy of your choice for the 100 mg tablet. 4. In future we can consider botox, ajovy, aimovig or emgality. 5. Try starting naproxen 2 days before menses 6. Complete lab work: cbc, cmp, tsh, Vit D 7. Consider Massage therapy and/or a consult to PHYSICAL THERAPY documented in this encounter [facility] 05-30-2024 Note HNO ID: [id number] Author: DEL MARIE PA-C Service: ? Author Type: Physician Take Out Waitress Type: Progress Notes Filed: 05/30/2024 16:09 Note Text: Division of Headache Outpatient Headache Clinic - Follow up Evaluation Headache Center - Follow up Visit [place] 07/14/2023 Tyesha Friedman Accompanied by: Father Primary Problem List: ACTIVE PROBLEM LIST Anxiety Malaise and Fatigue Dizzy Abdominal Pain Decreased Appetite Depression Chronic Migraine Without Aura, Intractable, Without Status Migrainosus Chief Complaint: chronic migraines w/o aura Impression and Plan from last visit: Impression: Eron Villatoro is a 18 year old year old female, with a history of depression and episodic migraine presents for follow-up on her migraine treatment. Her neurological examination is essentially normal at this visit. Topamax and Migravent has helped frequency of chronic migraines. Since last visit and with uptitration of Topomax, she reports improvement in headaches, down from 9 to 4 per month. Headaches are also less disabling. She also got her Nurtec approved through insurance but has not started that yet. Plan: - Continue Topiramate 100 mg qhs - Continue using Nurtec and Aleve for abortive treatment - Referral sent to psychiatry given high levels of anxiety - Medrol dose pack for the prolonged headache since last Tuesday - Follow-up in 6 months Follow-up: 6 months Level of service: [facility] level 4 (30-39 min). Time spent 30 min on the day of service, which included preparing to see the patient, [id number] patient care, completing clinical documentation, obtaining and/or reviewing separately obtained history, performing a medically appropriate examination, counseling and educating the patient/family/caregiver, ordering medications, tests, or procedures, and communicating results to the patient/family/caregiver. Pt seen and staffed with Dr. Tyesha Friedman. Ricky Nuñez MD Neurology PGY-2 July 14, 2023 Attending Note: I personally have reviewed the history and physical obtained and documented by the resident/fellow and I have examined the patient. I have discussed the management options and their respective risks and benefits with the patient. I also made the necessary revisions in the above documentation and the note reflects my input. I discussed the case and the plans with Dr. Nuñez, and I fully agree with the recommendations as outlined above. Tyesha Friedman MD Interval Headache History: Since that time, she the patient states that her headaches have improved with the topiramate and migralief supplement. She continues to have frequent migraines, but they are overall less severe. She often has to go to bed to treat the migraine. She is hoping to find an effective migraine rescue medication. She failed several triptans and nurtec. Headache 1 Location: bilateral, temporal and frontal Quality/Description: throbbing Associated Symptoms: Photophobia: yes Phonophobia: yes Nausea: yes - on occasion Vomiting: yes - rare Other symptoms: rhinorrhea and lacrimation (flushed in face) Worse with activity: yes Number of migraine headache days/month: 26 Migraine headache severity: 7/10 Number of NON-migraine headache days/month: 0 Total Number of headache days/month: 26 Number of headache free days/month: 4 Days missed from work or school in the last month: 1 days Preventative: topiramate 100 mg/night Abortive: nurtec; not effective SH: Social History Tobacco Use Smoking status: Never Passive exposure: Yes Smokeless tobacco: Never Tobacco comments: outside Substance Use Topics Alcohol use: Never Drug use: Never Menses every 28 days, not heavy ( 4 days duration) Prior Therapies Duration of Use Dose Reason for Discontinuation Anti-Convulsant Topiramate (Topamax, Trokendi XL, Qudexy) one year still taking Anti-Depressant and Antipsychotic Escitalopram (Lexapro) since 2020 currently taking Fluoxetine (Prozac) Sertraline (Zoloft) Anti-Migraine Naratriptan (Amerge) still taking Rizatriptan (Maxalt) disorientation Sumatriptan (Imitrex, Sumavel) ineffective GEPANTS Rimegepant (Nurtec) Over the Counter Medications Acetaminophen (Tylenol) ineffective Acetaminophen/Aspirin/Caffeine (Excedrin, Goody?s) ineffective Ibuprofen (Advil, Motrin) ineffective Naproxen sodium (Aleve) still taking PAST MEDICAL HISTORY Diagnosis Date Bruxism Depression Migraine headache without aura NEGATIVE MEDICAL HISTORY Seasonal allergies PAST SURGICAL HISTORY Procedure Laterality Date TYMPANOSTOMY LOCAL/TOPICAL ANESTHESIA 08/08/2006 ALLERGIES Allergen Reactions Soap Itching Dove soap (itching under legs) Issues and questions to be addressed: Medications ubrogepant (UBRELVY) 50 mg tablet Take 1 tab as needed at onset of migraine. May repeat dose at 2 hours if needed. Max 200 mg per 24 hours. topiramate (TOPAMAX) 100 mg ta (more content not included)... [facility] 05-30-2024 History of Presen t illness Narrative Images from the original note were not included. Division of Headache Outpatient Headache Clinic - Follow up Evaluation Headache Center - Follow up Visit [place] 07/14/2023 Tyesha Friedman Accompanied by: Father Primary Problem List: ACTIVE PROBLEM LIST Anxiety Malaise and Fatigue Dizzy Abdominal Pain Decreased Appetite Depression Chronic Migraine Without Aura, Intractable, Without Status Migrainosus Chief Complaint: chronic migraines w/o aura Impression and Plan from last visit: Impression: Eron Villatoro is a 18 year old year old female, with a history of depression and episodic migraine presents for follow-up on her migraine treatment. Her neurological examination is essentially normal at this visit. Topamax and Migravent has helped frequency of chronic migraines. Since last visit and with uptitration of Topomax, she reports improvement in headaches, down from 9 to 4 per month. Headaches are also less disabling. She also got her Nurtec approved through insurance but has not started that yet. Plan: - Continue Topiramate 100 mg qhs - Continue using Nurtec and Aleve for abortive treatment - Referral sent to psychiatry given high levels of anxiety - Medrol dose pack for the prolonged headache since last Tuesday - Follow-up in 6 months Follow-up: 6 months Level of service: [facility] level 4 (30-39 min). Time spent 30 min on the day of service, which included preparing to see the patient, [id number] patient care, completing clinical documentation, obtaining and/or reviewing separately obtained history, performing a medically appropriate examination, counseling and educating the patient/family/caregiver, ordering medications, tests, or procedures, and communicating results to the patient/family/caregiver. Pt seen and staffed with Dr. Tyesha Friedman. Ricky Nuñez MD Neurology PGY-2 July 14, 2023 Attending Note: I personally have reviewed the history and physical obtained and documented by the resident/fellow and I have examined the patient. I have discussed the management options and their respective risks and benefits with the patient. I also made the necessary revisions in the above documentation and the note reflects my input. I discussed the case and the plans with Dr. Nuñez, and I fully agree with the recommendations as outlined above. Tyesha Friedman MD Interval Headache History: Since that time, she the patient states that her headaches have improved with the topiramate and migralief supplement. She continues to have frequent migraines, but they are overall less severe. She often has to go to bed to treat the migraine. She is hoping to find an effective migraine rescue medication. She failed several triptans and nurtec. Headache 1 Location: bilateral, temporal and frontal Quality/Description: throbbing Associated Symptoms: Photophobia: yes Phonophobia: yes Nausea: yes - on occasion Vomiting: yes - rare Other symptoms: rhinorrhea and lacrimation (flushed in face) Worse with activity: yes Number of migraine headache days/month: 26 Migraine headache severity: 7/10 Number of NON-migraine headache days/month: 0 Total Number of headache days/month: 26 Number of headache free days/month: 4 Days missed from work or school in the last month: 1 days Preventative: topiramate 100 mg/night Abortive: nurtec; not effective SH: Social History Tobacco Use Smoking status: Never Passive exposure: Yes Smokeless tobacco: Never Tobacco comments: outside Substance Use Topics Alcohol use: Never Drug use: Never Menses every 28 days, not heavy ( 4 days duration) Prior Therapies Duration of Use Dose Reason for Discontinuation Anti-Convulsant Topiramate (Topamax, Trokendi XL, Qudexy) one year still taking Anti-Depressant and Antipsychotic Escitalopram (Lexapro) since 2020 currently taking Fluoxetine (Prozac) Sertraline (Zoloft) Anti-Migraine Naratriptan (Amerge) still taking Rizatriptan (Maxalt) disorientation Sumatriptan (Imitrex, Sumavel) ineffective GEPANTS Rimegepant (Nurtec) Over the Counter Medications Acetaminophen (Tylenol) ineffective Acetaminophen/Aspirin/Caffeine (Excedrin, Goody s) ineffective Ibuprofen (Advil, Motrin) ineffective Naproxen sodium (Aleve) still taking PAST MEDICAL HISTORY Diagnosis Date Bruxism Depression Migraine headache without aura NEGATIVE MEDICAL HISTORY Seasonal allergies PAST SURGICAL HISTORY Procedure Laterality Date TYMPANOSTOMY LOCAL/TOPICAL ANESTHESIA 08/08/2006 ALLERGIES Allergen Reactions Soap Itching Dove soap (itching under legs) Issues and questions to be addressed: Medications ubrogepant (UBRELVY) 50 mg tablet Take 1 tab as needed at onset of migraine. May repeat dose at 2 hours if needed. Max 200 mg per 24 hours. topiramate (TOPAMAX) 100 mg tablet Take 1 tablet by mouth daily at bedtime. escitalopram oxalate (LEXAPRO) 10 mg tablet Take 2 tablets by mouth once daily. fluticasone (FLONASE) 50 mcg/actuation nasal spray Use 2 Sprays in each nostril once daily. Rinse mouth after use. I have reviewed the Health Status Assessment responses and discussed these with the patient: yes Del Marie PA-C HEADACHE SCORES: 07/14/2023 05/29/2024 Headache Questions ER visits since last office visit: 0 1 Hospital stays since last office visit 0 0 Limited ADLs in the last month: 3 3 Days missed from work or school in the last month: 1 1 Days headache pain free in the last month: 19 14 Days per month with ALL of the following symptoms - decreased productivity, light sensitivity and nausea: 0 2 Initial improvement of headache after botox injection at last visit: Not applicable, I did not have a botox injection at my last visit Not applicable, I did not have a botox injection at my last visit PRN medication usage in the last month: 4 5 Patient impression of improvement since last visit: Minimally improved Minimally improved 07/14/2023 05/29/2024 HIT-6 HIT-6 67 (Severe impact) 65 (Severe impact) 07/14/2023 05/29/2024 LEONA - 2/7 SCORES LEONA-2 Score 6 4 LEONA-7 Score 20 13 07/14/2023 05/29/2024 Migraine Specific QOL - Higher scores indicate better HRQL Role Function-Restrictive Transformed Score (range: 0-100) 34.29 34.29 Role Function-Preventive Transformed Score (range: 0-100) 60 35 Emotional Function Transformed Score (range: 0-100) 20 20 07/14/2023 05/30/2024 PHQ-9 Score 17 8 Studies to Review: No MRI Head/Brain - Last 2 Impressions MRI BRAIN WO IVCON Exam End: 07/01/2022 9:55 AM (Final result) Impression: IMPRESSION: NORMAL BRAIN MRI ... MRA Head and/or Neck - Last 2 Impressions No resulted procedures found. CT Head/Brain - Last 2 Impressions No resulted procedures found. CTA Head and/or Neck - Last 2 No resulted procedures found. 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 Skin: Color, texture, turgor normal. No rashes or lesions Lungs: normal breath sounds bilaterally CV: RRR, normal S1, S2 auscultated, no murmurs, and no JVD Musculoskeletal: No gross joint deformities. , Tenderness to palpation of temporalis muscles: No, Tenderness to palpation of cervical spine and upper trapezius: No., Suboccipital tenderness: No. , Muscle spasms: Yes bilaterally . , Trigger Points: cervical paraspinous muscles bilateral and trapezius muscles bilateral , Cervical ROM: Normal. , Resting neck position: Normal. Neurological: Normal mental status. Cranial nerves II-XII intact. Normal tone and strength. Normal coordination. DTRs are intact and symmetric bilaterally. Normal gait. IMPRESSION: Eron Villatoro is a 19 year old year old female, with a history of depression and episodic migraine presents for follow-up on her migraine treatment. Her neurological examination is essentially normal at this visit. Topamax and Migravent have helped to reduce overall frequency of severe migraines. She continues to have them near daily, but they are less severe. She did not find the nurtec to be effective. ICHD-3 Diagnosis: Chronic migraine with aura without status migrainosus, not intractable (primary encounter diagnosis) Encounter for long-term (current) use of medications We will request a precertification for a Calcitonin Gene-Related Peptide Receptor Antagonist (GEPANT) Ubrogepant for the rescue treatment of chronic migraine . This patient meets ICHD-3 criteria for treatment of migraine with a small molecule CGRP antagonist GEPANT. The FDA has approved GEPANTS for the treatment of migraine. Specifically, the patient has 26 headaches per month, lasting 4 or more hours/day associated with photophobia, phonophobia, nausea, vomiting, lacrimation, rhinorrhea for three or more months. Medication overuse headache has been ruled out.Patient will not use with another GEPANT. The patient has tried and failed the following : The following preventative medications have been tried without benefit: Anti-Convulsant Topiramate (Topamax, Trokendi XL, Qudexy) one year still taking Anti-Depressant and Antipsychotic Escitalopram (Lexapro) since 2020 currently taking Fluoxetine (Prozac) Sertraline (Zoloft) The following abortive medications have been tried but require high frequency use which can lead to Medication Overuse Headache: Anti-Migraine Naratriptan (Amerge) still taking Rizatriptan (Maxalt) disorientation Sumatriptan (Imitrex, Sumavel) ineffective GEPANTS Rimegepant (Nurtec) Over the Counter Medications Acetaminophen (Tylenol) ineffective Acetaminophen/Aspirin/Caffeine (Excedrin, Goody s) ineffective Ibuprofen (Advil, Motrin) ineffective Naproxen sodium (Aleve) still taking PLAN: Headaches can be associated with systemic abnormalities; we will check the following: Labs: CBC Comprehensive Metabolic Panel Thyroid Stimulating Hormone 25-Hydroxyvitamin D2 + D3 2. Try ubrelvy 50 mg ( insurance will not cover 100 mg tablet) ;Take at onset of a moderate to severe migraine, if not completely gone in 2 hours you may repeat the dose x 1. Maximum of 2 doses in 24 hours 3. Increase walks 3-4 each week; 15-20 minutes. 4. Consider massage therapy 5. Consider PHYSICAL THERAPY for migraines: Florentin exercises 6. Increase topiramate to 1.5 tablets at bedtime; total 150 mg nightly HEADACHE MANAGEMENT: (You are the primary guardian of your health and headache. Keep track of all medications: This includes the reason for use, side effects and benefits.) MEDICATION TREATMENT: Medications to Start Taking ubrogepant (UBRELVY) 50 mg tablet Take 1 tab as needed at onset of migraine. May repeat dose at 2 hours if needed. Max 200 mg per 24 hours. Discussed treatment options, both abortive and preventive medications. Lifestyle modification including increased oral hydration, decreased caffeine, exercise and stress management, can improve migraines. Treatment options include preventive and acute medications, natural supplements, and infusion therapy. Medication overuse can lead to an increase in migraines. Please limit use of acute treatments to no more than 2 days/week or 10 days/month. RESEARCH: None at this time Follow-up: 4 months I spent 42 minutes [id number] with the patient and over half the time was devoted to counseling and/or coordination of care. Del Marie PA-C documented in this encounter [facility] 04-24-2024 History of Presen t illness Narrative Radiology Service Progress Note PATIENT NAME: Eron Villatoro DATE OF SERVICE: April 24, 2024 TIME: 11:37 AM PATIENT IDENTITY VERIFICATION COMPLETED USING TWO (2) IDENTIFIERS: Name and Date of confirmed by patient verbally. FALL SCREENING: Has the patient had 2 falls in the last year or 1 fall with injury or currently using an Ambulatory Assistive Device (Walker, Cane, Wheelchair, Crutches, etc.)? No PATIENT GENDER DATA: Assigned female at . status: : No status: NO. PATIENT RELEVANT IMPLANT DATA REVIEWED: Not Applicable PATIENT PRESENTS WITH AN IMPLANTABLE OR ATTACHED ELECTRIC METER REPAIRER HELPER: No RADIOLOGY DEPARTMENT: Mammography PERIPHERAL IV DATA: Not applicable SIGNED BY: RT Nicole(R) April 24, 2024 11:37 AM documented in this encounter [facility] 04-24-2024 Note HNO ID: [id number] Author: SUZANNA BLANCO RT(R) Service: Radiology Author Type: Senior Dot Net Developer Type: Progress Notes Filed: 04/24/2024 11:37 Note Text: Radiology Service Progress Note PATIENT NAME: Eron Villatoro DATE OF SERVICE: April 24, 2024 TIME: 11:37 AM PATIENT IDENTITY VERIFICATION COMPLETED USING TWO (2) IDENTIFIERS: Name and Date of confirmed by patient verbally. FALL SCREENING: Has the patient had 2 falls in the last year or 1 fall with injury or currently using an Ambulatory Assistive Device (Walker, Cane, Wheelchair, Crutches, etc.)? No PATIENT GENDER DATA: Assigned female at . status: : No status: NO. PATIENT RELEVANT IMPLANT DATA REVIEWED: Not Applicable PATIENT PRESENTS WITH AN IMPLANTABLE OR ATTACHED ELECTRIC METER REPAIRER HELPER: No RADIOLOGY DEPARTMENT: Mammography PERIPHERAL IV DATA: Not applicable SIGNED BY: RT Nicole(R) April 24, 2024 11:37 AM [facility] 04-24-2024 Instructions Park Thorpe MA - 04/24/2024 10:47 AM EST Thank you for trusting me with your breast care today. Please call or MyChart in 2-3 months with an update in your symptoms. With any changes in symptoms evaluated today such as worsening, pain, skin redness, warmth, drainage, palpable mass or other breast symptoms. Your Breast Care Team, Roger August CNP, Medical Breast Specialist Jessica Savage RN [phone] ([place]) Park Thorpe, Dye Machine Operator [phone] ([place]) documented in this encounter [facility] [facility] 04-[facility]-2024 Note HNO ID: [id number] Author: ROGER AUGUST APRN.GAURANG Service: ? Author Type: Nurse Practitioner Type: Progress Notes Filed: 04/24/2024 12:18 Note Text: MEDICAL BREAST PATIENT NAME: Eron Villatoro April 24, 2024 REFERRAL: She is self referred for an opinion regarding Right breast pain and lump. 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 She reports she first noticed RIGHT breast lump about 6 months ago. Lump is tender with palpation. She denies any trauma or injury to breast. She denies any new medication or OTC supplements. She denies any changes in her weight. She thinks lump is size of golf ball and rates the pain a 5 on scale from 1-10. The patient denies any skin changes, or nipple discharge. Genetic Testing: No No results found for: VITD25 She takes no supplements. BMD: No PERSONAL BREAST HISTORY: Breast biopsy: No Breast cysts: No Breast surgery: No Breast cancer: No CANCER SURVEILLANCE: Mammograms: No Breast MRI: No Colonoscopy: No RISK FACTORS FOR BREAST CANCER: Age at the onset of menses: 13 years of age. P: 0 Age at the of first child: Patient is nulliparous. Age at menopause: The patient is not menopausal at this time. She has an intact uterus and ovaries She does not use any control. History of Mantle Radiation prior to the age of 30: No Obesity: -Last 1 Encounter Wt Readings: Date: Wt: 07/14/2023 100.2 kg (220 lb 14.4 oz) (99%, Z= 2.21)* -33 kg/m2 Mammographic density: Unknown Personal History of Benign Atypical Breast Biopsy: No Alcohol use: Never PAST MEDICAL HISTORY: Patient specifically denies history of: DVT, PE, migraine headaches WITH AURA, abnormal uterine bleeding, abnormal uterine biopsies, osteopenia, and osteoporosis. +migraine without auras SOCIAL HISTORY: Social History Tobacco Use Smoking status: Never Passive exposure: Yes Smokeless tobacco: Never Tobacco comments: outside Substance Use Topics Alcohol use: Never Drug use: Never Caffeine intake: 16 oz coffee / day Exercise: 1-2 times weekly FAMILY HISTORY: Family history of breast cancer: Paternal Great Aunt and Paternal Great grandmother Family history of ovarian cancer: None Number of sisters: 0 Number of maternal aunts: 1 Number of paternal aunts: 1 Ashkenazi Ancestry: no Other Cancer: PGM dx melanoma-alive and well There is no family history of prostate, colon, uterine, pancreatic, gastric, brain, renal cell or thyroid cancer. There is no family history of sarcoma or leukemia. Osteoporosis: MGM dx 74-alive and well Stroke: None Blood Clot: None Heart attack: Father dx 44-alive and well and PGF dx 55-alive and well Thyroid Nodule or Goiter: None Autism: None REVIEW OF SYSTEMS: The patient specifically denies unintentional weight loss, insomnia, hot flashes, night sweats, abnormal swelling in the arms or legs, chest pain, shortness of breath, persistant cough, heartburn, urinary incontinence, vaginal dryness, decreased libido or unusual bony pains. +severe headaches The sensitive examination was discussed with the Patient or Patient's Authorized Etcher Apprentice Photoengraving. As applicable, any other physician, advance practice provider, medical student, or other health professional student that will be observing or involved in the sensitive examination for educational or training purposes was discussed with the Patient or Authorized Etcher Apprentice Photoengraving. The Patient or Authorized Etcher Apprentice Photoengraving has agreed to proceed with the sensitive examination. (Sensitive examination includes inspection and/or palpation of the breasts, pelvis, prostate and anorectal regions) PHYSICAL EXAM: Ht 177.8 cm (5' 10) Wt 104.3 kg (230 lb) LMP 04/18/2024 (Exact Date) BMI 33.00 kg/m? General: well-nourished, healthy, obese, white, female, alert and oriented x 3, calm Skin: warm, dry, skin color, texture, turgor normal Head/Eyes: normocephalic, atraumatic, and anicteric Lymph nodes- The supraclavicular, axillary, and cervical regions are free of significant lymphadenopathy. Right breast-The skin, nipple and areola appear normal. There is no skin dimpling with movement of the pectoralis. There is no nipple retraction. No discharge can be elicited. The parenchya is moderately fibrocystic UOQ. At the 12 o'clock position 4 cmfn there is a prominent tender area of increased fibrocystic change (she confirms this is area of concern). The axillary tail is normal. There is slight tenderness noted with palpation. Left breast- The skin, nipple, and areola appear normal. There is no skin dimpling with movement of the pectoralis. There is no nipple retraction. No discharge can be elicited. The parenchyma is moderately fibrocystic UOQ L>R. The (more content not included)... [facility] 04-24-2024 History of Presen t illness Narrative MEDICAL BREAST PATIENT NAME: Eron Villatoro April 24, 2024 REFERRAL: She is self referred for an opinion regarding Right breast pain and lump. 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 She reports she first noticed RIGHT breast lump about 6 months ago. Lump is tender with palpation. She denies any trauma or injury to breast. She denies any new medication or OTC supplements. She denies any changes in her weight. She thinks lump is size of golf ball and rates the pain a 5 on scale from 1-10. The patient denies any skin changes, or nipple discharge. Genetic Testing: No No results found for: VITD25 She takes no supplements. BMD: No PERSONAL BREAST HISTORY: Breast biopsy: No Breast cysts: No Breast surgery: No Breast cancer: No CANCER SURVEILLANCE: Mammograms: No Breast MRI: No Colonoscopy: No RISK FACTORS FOR BREAST CANCER: Age at the onset of menses: 13 years of age. P: 0 Age at the of first child: Patient is nulliparous. Age at menopause: The patient is not menopausal at this time. She has an intact uterus and ovaries She does not use any control. History of Mantle Radiation prior to the age of 30: No Obesity: -Last 1 Encounter Wt Readings: Date: Wt: 07/14/2023 100.2 kg (220 lb 14.4 oz) (99%, Z= 2.21)* -33 kg/m2 Mammographic density: Unknown Personal History of Benign Atypical Breast Biopsy: No Alcohol use: Never PAST MEDICAL HISTORY: Patient specifically denies history of: DVT, PE, migraine headaches WITH AURA, abnormal uterine bleeding, abnormal uterine biopsies, osteopenia, and osteoporosis. +migraine without auras SOCIAL HISTORY: Social History Tobacco Use Smoking status: Never Passive exposure: Yes Smokeless tobacco: Never Tobacco comments: outside Substance Use Topics Alcohol use: Never Drug use: Never Caffeine intake: 16 oz coffee / day Exercise: 1-2 times weekly FAMILY HISTORY: Family history of breast cancer: Paternal Great Aunt and Paternal Great grandmother Family history of ovarian cancer: None Number of sisters: 0 Number of maternal aunts: 1 Number of paternal aunts: 1 Ashkenazi Ancestry: no Other Cancer: PGM dx melanoma-alive and well There is no family history of prostate, colon, uterine, pancreatic, gastric, brain, renal cell or thyroid cancer. There is no family history of sarcoma or leukemia. Osteoporosis: MGM dx 74-alive and well Stroke: None Blood Clot: None Heart attack: Father dx 44-alive and well and PGF dx 55-alive and well Thyroid Nodule or Goiter: None Autism: None REVIEW OF SYSTEMS: The patient specifically denies unintentional weight loss, insomnia, hot flashes, night sweats, abnormal swelling in the arms or legs, chest pain, shortness of breath, persistant cough, heartburn, urinary incontinence, vaginal dryness, decreased libido or unusual bony pains. +severe headaches The sensitive examination was discussed with the Patient or Patient's Authorized Etcher Apprentice Photoengraving. As applicable, any other physician, advance practice provider, medical student, or other health professional student that will be observing or involved in the sensitive examination for educational or training purposes was discussed with the Patient or Authorized Etcher Apprentice Photoengraving. The Patient or Authorized Etcher Apprentice Photoengraving has agreed to proceed with the sensitive examination. (Sensitive examination includes inspection and/or palpation of the breasts, pelvis, prostate and anorectal regions) PHYSICAL EXAM: Ht 177.8 cm (5' 10) Wt 104.3 kg (230 lb) LMP 04/18/2024 (Exact Date) BMI 33.00 kg/m General: well-nourished, healthy, obese, white, female, alert and oriented x 3, calm Skin: warm, dry, skin color, texture, turgor normal Head/Eyes: normocephalic, atraumatic, and anicteric Lymph nodes- The supraclavicular, axillary, and cervical regions are free of significant lymphadenopathy. Right breast-The skin, nipple and areola appear normal. There is no skin dimpling with movement of the pectoralis. There is no nipple retraction. No discharge can be elicited. The parenchya is moderately fibrocystic UOQ. At the 12 o'clock position 4 cmfn there is a prominent tender area of increased fibrocystic change (she confirms this is area of concern). The axillary tail is normal. There is slight tenderness noted with palpation. Left breast- The skin, nipple, and areola appear normal. There is no skin dimpling with movement of the pectoralis. There is no nipple retraction. No discharge can be elicited. The parenchyma is moderately fibrocystic UOQ L>R. There is no dominant masses in the breast. The axillary tail is normal. There is no tenderness noted with palpation. IMAGING: Right ultrasound was performed today in the breast center and showed: Targeted ultrasound of the right breast was performed for evaluation of the palpable area of concern at 12:00 6 cm from the nipple. There are no suspicious sonographic findings. Benign appearing fibroglandular tissue is seen in the region of palpable concern. There are no suspicious sonographic findings in the imaged area. No suspicious findings to correlate with the palpable area in the right breast at 12:00. Clinical follow-up is recommended. Assessment IMPRESSION/PLAN: Eron Villatoro is a 19 year old year old female with bilateral fibrocystic change, mastodynia , excess weight, and FH Breast Cancer There is no evidence of malignancy. The patient was reassured as to the benign nature of her clinical and sonographic findings. Mastodynia Encouraged use of topical Aspercreme to affected area twice daily Soft support bra Comfort measures Continued surveillance Genetics referral made: No: Reason: N/A Chemoprevention discussion: N/A The patient is advised to exercise regularly, achieve/maintain ideal body weight, and to limit alcohol consumption to less than 7 drinks weekly for breast cancer risk reduction and overall health. She will return in 3-6 months for follow-up evaluation with any continued concerns or changes in breast. She will call me in the interim should she have any questions or concerns. My final recommendations will be communicated back to the requesting physician by way of shared medical record or letter via [place] mail. I spent a total of 45 minutes minutes on the date of the service which included preparing to see the patient, [id number] patient care, completing clinical documentation, obtaining and/or reviewing separately obtained history, performing a medically appropriate examination, counseling and educating the patient/family/caregiver, ordering medications, tests, or procedures, and communicating results to the patient/family/caregiver. Roger August APRN.PANEL INSTRUMENT REPAIRER Medical Breast Specialist April 24, 2024 CC: Self SELF Phone: N/A Fax: Yari Yoo[address] [address] [place] [address] documented in this encounter [facility] 04-06-2024 Telephone encounter Note Physician: Beverly Call from patient requesting refill. Please E-Scribe Last office visit 07/14/23 with Beverly in person Next office visit 05/30/24 with Frank in person Requested Prescriptions Pending Prescriptions Disp Refills topiramate (TOPAMAX) 100 mg tablet 90 tablet 3 Sig: Take 1 tablet by mouth daily at bedtime. [facility] Franca Travis [facility] 04-06-2024 Miscellaneous Notes Physician: Beverly Call from patient requesting refill. Please E-Scribe Last office visit 07/14/23 with Beverly in person Next office visit 05/30/24 with Frank in person Requested Prescriptions Pending Prescriptions Disp Refills topiramate (TOPAMAX) 100 mg tablet 90 tablet 3 Sig: Take 1 tablet by mouth daily at bedtime. Pharmacy Name: [facility] Franca Angy documented in this encounter [facility] 12-15-2023 Telephone encounter Note Are you willing to complete for patient ? [facility] 12-15-2023 Miscellaneous Notes Are you willing to complete for patient ? Patient last seen on 07/14/23 documented in this encounter [facility] 12-01-2023 Telephone encounter Note Patient last seen on 07/14/23 [facility] 07-14-2023 Instructions Ricky Nuñez MD - 07/14/2023 11:28 AM EDT - Continue taking Topomax at the currently dose of 100 mg per day - Use Nurtec or Aleve for abortive treatment - Please take the Medrol dose pack as instructed on the box to break the current headache. - We have referred you to psychiatry. Please schedule the appointment. - Can also consider establishing with a psychologist/therapist in future. - Follow-up in 6 month at headache center ATTENTION Clinical Depression What you need to know and what you can do. Prior to your visit today, you completed a computerized survey. Your responses to some of the questions indicate you could be suffering from Clinical Depression. The typical symptoms of Clinical Depression are listed in the box below You checked off some or all of the symptoms, and indicated that they occur often enough to be bother-some. If this is accurate, then it is strongly recommended you get further professional help, especially if you feel hopeless or that life is not worth living (see (1) under Get Help). You may want to discuss this with a trusted friend or family member. Typical symptoms of Clinical Depression : Bad mood Trouble enjoying things you normally like to do Difficulty falling or staying asleep Feeling unusually bad about yourself (overly self-critical, worthless or guilty) Lack of usual energy level Lack of enthusiasm, motivation, or drive Trouble concentrating or making decisions (it can feel like memory loss) Loss of appetite (or sometimes over-eating) Being agitated, restless (or sluggish and slowed down) Feeling life just is not worth living or that you would be better off . GET HELP If you have symptoms of clinical depression, you can get help by doing one or more of the following: (1) Call the National Suicide Hotline or Call 761 (2) If you are already in treatment, make sure you contact and update your doctor or therapist. (3) Call the [facility] Department of Psychiatry & Psychology at or (ask for Psychiatry & Psychology appointments) (4) Call your primary care doctor to set up an appointment. (5) Call to set-up an appointment at one of the mental healthcare facilities in the [facility] (telephone numbers listed below). Mental Health Resources in the [facility] (in [place] unless otherwise noted): [facility] - Ligia Fuller [place] [phone] [facility] - [phone] [facility] [phone] Jose Ramon A[place] - [address] [phone] [facility] - [address] [phone] [facility] - [address] [phone] [facility] - [address] [phone] [facility] - [address] [facility]. [facility] - [phone] [facility] - [phone] [facility] - [address] [place] [phone] [facility] - [address] [place] [phone] [facility] - [address] [facility] [phone] [facility] - [phone] [facility] - [phone] [place] [phone] Annamarie MichelleShannon Baker [facility] - [phone] [phone] [facility] - [address] [facility] [place] [phone] [facility] [phone] [facility] - [address] [place] [address] [facility] - [address] [phone] [facility] Department of Psychiatry & Psychology. Appointments: or (ask for Psychiatry & Psychology appointments) If you are feeling suicidal, please call the [place] Suicide Hotline or Call 911 documented in this encounter [facility] 07-14-2023 History of Presen t illness Narrative Images from the original note were not included. Headache Center - Follow up Visit Problem List ACTIVE PROBLEM LIST Chronic Migraine Without Aura, Intractable, Without Status Migrainosus - 03/17/2023 Depression - 07/24/2020 Anxiety - 02/03/2019 Malaise and Fatigue - 02/03/2019 Dizzy - 02/03/2019 Abdominal Pain - 02/03/2019 Decreased Appetite - 02/03/2019 Chief Complaint: Eron Villatoro is a 18 year old year old female, with a history of depression presents for further treatment of her headaches. Interval Headache Hx: - she has been diagnosed with chronic migraine without aura and menstrual migraine. She was last seen in headache clinic 03/17/[address] Friedman. At that time, Nurtec, Aleve, and Naratriptan were her abortive treatments. Her preventatives included Topamax 100mg daily (increased on 03/17/23 visit) and migravent vitamin supplementation. CGRP Monoclonal antibodies and Botox were considered. Neck exercises were discussed as well. - Had a headache on Tuesday it was severe 8/10 at its peak, got better but did not go away. Still has the headache. Taken Aleve but it did not help. This is the first severe headache she has had since going up on Topomax. - The higher dose of Topomax is helping. Has noticed improvement in the severity and frequency of her headaches over the past two months. Has not had any side effects from Topomax. Headache 1 Diagnosis: Episodic Migraine Location: holcephalic Quality/Description: throbbing Associated Symptoms: Photophobia: yes Phonophobia: yes Nausea: yes - rarely Vomiting: yes - rarely Other symptoms: fatigue and neck pain Worse with activity: yes Number of migraine headache days/month: 4 Migraine headache severity: 4/10 Number of NON-migraine headache days/month: 0 Total Number of headache days/month: 4 Number of headache free days/month: 19 Duration of headaches with treatment: 1 days (24 hours) Current preventive treatment: topamax Current abortive treatment: naratriptan, Aleve Triggers: bright lights, stress and sleep- too much Onset of headache to peak: 45-60 min. Positional changes: no Most common time of day for headache to begin: anytime Prodrome: general sense of feeling unwell Aura: none Allodynia: yes - skin sensitivity with migraines Days missed from work or school in the last month: 0 days Headache status since the last visit: better Lifestyle: Sleep: 8-9 hours of sleep per night Diet: 16 oz coffee every other day Exercise: takes care of animals outside I have reviewed the [facility] Status Assessment responses and discussed these with the patient: yes Tyesha Friedman MD HEADACHE SCORES: 07/14/2023 Headache Questions ER visits since last office visit: 0 Hospital stays since last office visit 0 Limited ADLs in the last month: 3 Days missed from work or school in the last month: 1 Days headache pain free in the last month: 19 Days per month with ALL of the following symptoms - decreased productivity, light sensitivity and nausea: 0 Initial improvement of headache after botox injection at last visit: Not applicable, I did not have a botox injection at my last visit PRN medication usage in the last month: 4 Patient impression of improvement since last visit: Minimally improved 07/14/2023 HIT-6 HIT-6 67 (Severe impact) 07/14/2023 LEONA - 2/7 SCORES LEONA-2 Score 6 LEONA-7 Score 20 07/14/2023 Migraine Specific QOL - Higher scores indicate better HRQL Role Function-Restrictive Transformed Score (range: 0-100) 34.29 Role Function-Preventive Transformed Score (range: 0-100) 60 Emotional Function Transformed Score (range: 0-100) 20 07/14/2023 PHQ-9 Score 17 Studies to Review: No New Health Issues: No New Social History: No New Family History: No PHYSICAL EXAMINATION: Vital Signs: BP 118/77 Pulse 64 Wt 220 lb 14.4 oz (100.2kg) SpO2 98% LMP 07/04/2023 General: Alert and oriented. Answered questions in an appropriate manner. Made eye contact without apparent pain behavior. HEENT: Head is normocephalic and features were symmetric. Cranial Nerves: II: Pupils: symmetric Ill,lV,Vl: nl eye movements VII: Face symmetric. Motor: Bulk: Normal for age and gender. No abnormal movements were appreciated. Gait: Unassisted, normal Normal stride length, base, and normal arm swing. Impression: Eron Villatoro is a 18 year old year old female, with a history of depression and episodic migraine presents for follow-up on her migraine treatment. Her neurological examination is essentially normal at this visit. Topamax and Migravent has helped frequency of chronic migraines. Since last visit and with uptitration of Topomax, she reports improvement in headaches, down from 9 to 4 per month. Headaches are also less disabling. She also got her Nurtec approved through insurance but has not started that yet. Plan: - Continue Topiramate 100 mg qhs - Continue using Nurtec and Aleve for abortive treatment - Referral sent to psychiatry given high levels of anxiety - Medrol dose pack for the prolonged headache since last Tuesday - Follow-up in 6 months Follow-up: 6 months Level of service: Est level 4 (30-39 min). Time spent 30 min on the day of service, which included preparing to see the patient, [id number] patient care, completing clinical documentation, obtaining and/or reviewing separately obtained history, performing a medically appropriate examination, counseling and educating the patient/family/caregiver, ordering medications, tests, or procedures, and communicating results to the patient/family/caregiver. Pt seen and staffed with Dr. Tyesha Friedman. Ricky Nuñez MD Neurology PGY-2 July 14, 2023 Attending Note: I personally have reviewed the history and physical obtained and documented by the resident/fellow and I have examined the patient. I have discussed the management options and their respective risks and benefits with the patient. I also made the necessary revisions in the above documentation and the note reflects my input. I discussed the case and the plans with Dr. Nuñez, and I fully agree with the recommendations as outlined above. Tyesha Friedman MD documented in this encounter [facility] 12-28-2022 History of Presen t illness Narrative PEDIATRIC NEUROLOGY ESTABLISHED PATIENT VISIT Service Date: December 28, 2022 Service Time: 12:[address] Foss, I had the pleasure of evaluating Eron Villatoro in the Pediatric Neurology clinic on December 28, 2022 in consultation for the problem of headaches. My final impression and recommendations will be transmitted to the requesting physician by way of shared electronic medical record or letter via U.S. Mail. Although her history is well known to you, please allow us to reiterate it for the purpose of our medical records. Eron is accompanied to today's clinic visit by her father who helped to provide the history. Available medical records were also reviewed and portions of the history have been summarized from any records available with details confirmed with her father. HPI Headaches are ok. Eron is really enjoying the Topamax- feels it working very well. Migraines are occurring less frequently, on average 1x a week. Smaller headaches occurring on average 2x a week, they are not bothersome and do not effect function. Taking Imitrex- does not like it, feels it does not work. School is slightly stressful. 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 No new headache symptoms. HPI Headaches were less frequent and severe since the last visit. Eron states they are occurring on average 2-3x a week. No new symptoms or changes. No side effects associated with Topamax. Initial HPI: Eron is a 17 year old female with a past medical history significant for Anxiety who is seen today for evaluation of headaches. Headaches have been occurring for approximately 3-4 years. Headaches have been increasing in frequency since March. Around 3-4 headaches a week. Pain is typically 6/10 on the pain scale. Pain is mostly frontal/temporal, L > R side. 04/13 she started Topamax, taking 50 mg daily. Has not noticed a difference in the headaches. 05/27 saw PCP for migraine. Received 60 mg of Toradol - no relief. Denies nausea, vomiting, phonophobia, numbness/tingling, one sided weakness, confusion, visual disturbances, speech disturbances, or balance concerns. Most of the headaches she wakes up with in the morning. States she wakes up in the middle of the night with head pain a few times a month. Recent sinus infection- 2 courses of antibiotics. Now recovering. Drinks a lot of water. Dehydration or lack of food can be a trigger. Not sure of anything else. Tried taking all OTC medications - used to provide relief but no longer does. Sleep typically helps. Started Lexapro 10 mg around 1 year ago- feels anxiety is well controlled. Previously tried Zoloft and Prozac- lack of efficacy Sleep History: Trouble falling asleep: No Trouble staying asleep: No School History: Name of School: [employer] School Absences due to headache past term: 0-5 days School Grade: 12th Grades: A's and B's Academic Performance: average Attention Disorders: none Behavior School: No problems Eron is not sure what she wants to do after grad school. Current Outpatient Therapies: None HISTORY: History Normal , full term, vaginal delivery. Developmental History: Gross Motor: Normal Fine Motor: Normal Speech/Language: Normal Play Skills: Normal Social: Normal Immunizations: Up to date Allergies: ALLERGIES Allergen Reactions Soap Itching Dove soap (itching under legs) Current Medications: Current Outpatient Medications Medication Sig SUMAtriptan (IMITREX) 25 mg tablet Take 1 tablet by mouth as directed. START AT ONSET OF HEADACHE. MAY REPEAT DOSE AFTER 2 HOURS. topiramate (TOPAMAX) 50 mg tablet Take 1 tablet by mouth daily at bedtime. Topamax 75 mg daily. topiramate (TOPAMAX) 25 mg tablet Take 1 tablet by mouth daily at bedtime. Take 75 mg daily. escitalopram oxalate (LEXAPRO) 10 mg tablet Take 1 tablet by mouth once daily. No current facility-administered medications for this visit. Past Medical/Surgical History Head Injury: none Seizure: none Hospitalizations: none PAST MEDICAL HISTORY Diagnosis Date NEGATIVE MEDICAL HISTORY PAST SURGICAL HISTORY Procedure Laterality Date TYMPANOSTOMY LOCAL/TOPICAL ANESTHESIA 08/08/2006 Family History Problem Relation Age of Onset other (kidney stones) Mother Migraines Mother Migraines Maternal Grandmother Diabetes Paternal Grandmother Migraines Maternal Aunt Migraines Maternal Uncle Social History: Lives with: Mom and Dad in split homes Previous Laboratory/Imaging Studies: None. REVIEW OF SYSTEMS: Review of Systems Constitutional: Negative for significant weight loss. Head: +Headaches Eyes: Negative for visual disturbance. Ears: no hearing loss Respiratory: Negative for cough, shortness of breath and wheezing. Cardiovascular: Negative for chest pain, cyanosis and leg swelling. Gastrointestinal: Negative for abdominal pain, constipation and vomiting. Genitourinary: Negative for dysuria and frequent urination. Musculoskeletal: Negative for arthralgias, joint swelling and myalgias. Skin: Negative for itching, skin lesions and rash. Hematologic/Lymphatic: Negative for adenopathy, bruises/bleeds easily and prolonged bleeding. Endocrine: Negative for polyuria and short stature. Neurological: See History of Present Illness. CLINICAL EXAMINATION: There were no vitals filed for this visit. On general physical examination, Eron is a 17 year old well-appearing and undistressed female. She is non-dysmorphic. There are no neurocutaneous stigmata. Auscultation of the heart and lungs is within normal limits. There is no hepatosplenomegaly. There are no orthopedic deformities or scoliosis. On neurological examination, mental status is normal. Cranial nerves II - XII are intact, with a normal fundoscopic examination, normal visual vela, and normal hearing. On motor examination, there is normal muscle bulk and tone. Strength is normal in both upper and lower extremities, both proximally and distally. Sensory examination is grossly intact. On cerebellar examination, there is no dysmetria. Romberg is negative and tandem gait well performed. Gait is within normal limits. Reflexes are symmetrical and equal in both upper and lower extremities. Plantar response is flexor bilaterally. IMPRESSION: In summary, Eron is a 17 year old girl with a past medical history significant for Anxiety/depression who presents today for evaluation of headaches. Her neurological examination is entirely normal and non-focal. Eron s constellation of neurological symptoms and signs is suggestive of a combination of Migraines without aura and Tension type headaches. Eron states headaches are well controlled with Topamax increase. Plan to switch rescue protocol for better relief with migraines. If no improvement with Amerge, we can trial Nurtec. PLAN: The above was extensively discussed with the patient and Family including risks and benefits of medications. Appropriate handouts were provided (see Patient Instructions). Based on my findings, I would recommend the following: Preventive Medications: Continue Topamax to 75 mg at bedtime Magnesium, CoQ10, and B2 Rescue Protocol: At onset of severe headache: Naproxen 660 mg by mouth, Amerge 2.5 mg by mouth Four hours later if headache has not resolved: Acetaminophen 1000 mg by mouth and repeat Amerge 2.5 by mouth. Rescue Protocol to be used no more than 2 days per week. Additional Medications: Continue Lexapro 10 mg Additional recommended testing: MRI negative Lifestyle Modification: Discussed appropriate lifestyle modification includin to 9 hrs sleep per night 60-80 oz of water per day No missed meals No missed school OTC medication/rescue medication no more than two days per week. Exercise regimen: 30 minutes of continuous exercise 3 days per week. Headache Diary: Reviewed benefits/essential components of headache diary to assist with headache identification, trigger identification, and evaluation of efficacy of rescue medications. I would like to see Eron in Clinic for a follow-up visit in 3-6 months. Thank you for the opportunity to participate in Eron s care. If we can answer any additional questions, we would be pleased to do so. I spent a total of 20 minutes on the date of the service which included preparing to see the patient, [id number] patient care, completing clinical documentation, obtaining and/or reviewing separately obtained history, performing a medically appropriate examination, counseling and educating the patient/family/caregiver, and ordering medications, tests, or procedures. Sincerely, Raul Junior APRN.[facility] CC: Enoc Foss MD documented in this encounter [facility] 12-21-2022 Miscellaneous Notes FOC called back and said he believes Eron has enough Topamax to last to appt but will call back if needed. Will give til end of day and then decline refill request if don't hear back from him Reina Oquendo RN [facility], Peds Neuro Dept PEDS NEURO CARE COORDINATION QUICK NOTE Patient identified by name and date of : No Spoke to : left message for callback Reason for call : Topamax refill Follow -up visit scheduled : No Additional Notes : has appt on 12/28. Can refill wait til then? Reina Oquendo RN [facility], Peds Neuro Dept Pharmacy Fax Drug: Topiramate (TOPAMAX) 50 mg tablet Generic Strength:50 mg tablet Current Dose: Take 1 tablet by mouth daily at bedtime. Topamax 75 mg daily Pharmacy: [facility] Escript 30 days Drug: topiramate (TOPAMAX) 25 mg tablet Generic Strength:25 mg tablet Current Dose: Take 1 tablet by mouth daily at bedtime. Take 75 mg daily Pharmacy: [facility] Escript 30 days Date of last visit:09.07.2022 Date of next visit 12.28.2022 documented in this encounter [facility] 12-21-2022 Miscellaneous Notes PEDS NEURO CARE COORDINATION QUICK NOTE Patient identified by name and date of : No Spoke to : [facility] Reason for call : Topamax refill Follow -up visit scheduled : No Additional Notes : has appt on 12/28. Does she need refill before then Reina Oquendo RN [facility] Roller, Peds Neuro Dept documented in this encounter [facility] 09-21-2022 Miscellaneous Notes Imitrex rx to Raul for approval. Dosage verified. See 09/20 mychart encounter for more info Reina Keyes RN documented in this encounter [facility] 09-07-2022 Instructions Raul Junior APRN.[employer] INSTRUMENT REPAIRER - 09/07/2022 12:16 PM EDT Preventive Medication: Migravent Increase Topamax to 75 mg daily. Please contact me if adverse side effects are noticed/reported. Please DO NOT stop medication suddenly as medications should be slowly decreased rather than stopped abruptly. Rescue Protocol: At onset of severe headache, lay down in a dark, quiet room with a cold compress on forehead At onset of severe headache: Naproxen 660 mg by mouth, Maxalt 10 mg by mouth Two hours later if headache has not resolved: Acetaminophen 1000 mg by mouth and repeat Maxalt 10 mg by mouth. Rescue Protocol to be used no more than 2 days per week. Rescue protocol is to be used for severe headache only. Protocol can be repeated no more than 2 days per week. If rescue protocol does not work, please notify me and we will discuss next steps for rescue. If severe headache occurs during the school day, rescue protocol may be given in school. Please provide me with your school medication administration form and I will complete it for you. If severe headache occurs in school, rescue medication should be given. Patient can lay down in the nurse's office for no more than 30 minutes if needed. Patient should try to go back to class as soon as possible after taking rescue medication. General Headache Management: Medication Compliance Take prescribed preventive medication regularly as directed. Acute Headache Attacks Initiate non-pharmacologic measures at the earliest onset of your headache. Rest and quiet in a cool, dark environment. Relax and reduce stress. Cold compress to head (place a dry washcloth to forehead, cover with a blue freezer packet and use a headband to press the freezer packet across the forehead and temples). Don't wait!! Take the maximum allowable dosage of rescue medication at the very earliest sign of headache. Communicate Call your headache provider when problems arise, especially if your headaches change, increase in frequency/severity, or become associated with neurological symptoms (weakness, numbness, slurred speech, etc.). Headache/Pain Management Therapies Consider various complementary methods, including medication, behavioral therapy, psychological counseling, biofeedback, massage therapy, acupuncture, and other modalities. Such measures may reduce the need for medications Counseling for pain management, where patients learn to function with and gain control of their pain, is an essential element of managing chronic headaches. Headache Lifestyle Modifications: Consistent Sleep Schedule Aim for 8-9 hours of sleep per day Keep a set bedtime and set wakeup time. These times should vary by no more than 2 hours between weekdays/weekends. There should be NO electronics in the room during sleep (THIS INCLUDES TV, PHONE, AND TABLET!!). Avoid screen time 1 hour before bed. Hydration You should drink at least 40-60 oz of water per day. Some patients with a higher body weight may require up to 100 oz of water per day. There are a variety of water bottles with tracking markers which can help you keep track of your water intake throughout the day. There are also several water tracking apps for younger children including [employer]us or [employer]. You should bring a water bottle to school with you and drink consistently throughout the day. A letter for school stating that the student be allowed to carry a water bottle can be provided if needed. Exercise We recommend 30 minutes of continuous exercise at least 3 days per week. This can include walking, running, biking, swimming, etc. Just be sure you do not start and stop frequently (don't take the dog with you!) For patients who have experienced a significant decrease in physical activity due to chronic headaches, we recommend daily exercise alternating between cardiovascular exercise and strength training. Regular Meals Aim for 3 balanced meals each day to avoid spikes or dips in blood sugar. Do not skip any meals, especially breakfast. School Attendance Do not stay home from school just because you have a headache! Missed school days leads to higher stress and MORE HEADACHES! Rescue medication can be given in school (please see medication overuse section below). If you get a headache during the school week, take your rescue medication and go to school. Medication Overuse Rescue medication overuse leads to rebound headaches. Over the counter medication (Tylenol, Ibuprofen, Aleve, etc.) and prescription rescue medications (Triptans) should not be used more than 2 days per week. DO NOT use over the counter migraine medications (Advil-Migraine, Excedrin, etc.) as these contain multiple substances that can make headaches worse. Identifying Triggers: There are certain factors that may increase the likelihood of getting a headache or may exacerbate your headaches. Identifying triggers can help decrease or prevent headaches, particularly migraines. Common headache triggers include: Changes in sleep patterns including lack of sleep, napping, or oversleeping. Environmental factors such as changes in weather, bright lights, loud noises, or certain odors/pollutants. Stress including periods of high stress (both good and bad), significant life changes, or even a stress letdown (weekends or vacations). Physical activity such as overexerting yourself or exercising in heat. Lack of adequate intake such as skipping meals, fasting, or dehydration. Medication including overuse of rescue medications or skipping a dose of regularly prescribed medication. Dietary triggers including: Caffeine This includes coffee (including decaf), chocolate, tea, or cola/pop/soda 7-up, Sprite, Edda Mist, Cyndi Karina, Mug/A+W Root Beer, Minute Maid Benld, Slice are allowed MSG (monosodium glutamate) This includes Kazakh/ foods, all flavored chips such as Doritos, and Ramen noodles Nitrates/nitrites This includes deli meat, ham, alfonso, sausage, hot dogs Nitrate free deli meats are allowed Tyramine This includes aged cheese and commercial pizza Malian cheese, cottage cheese, Velveeta and fresh mozzarella are allowed Nutrasweet and other artificial sweeteners. Headache Diary: A headache diary can be helpful in the management of chronic headaches. It can help patients with frequent or daily headaches differentiate between a regular/tension-type headache and a migraine headache. It can also be helpful in identifying triggers and determining if rescue medications or other treatments are helpful. The following information should be included in a headache diary: Date of headache Time headache began and time headache ended Headache intensity (scale from 1-10) Associated symptoms (light/sound sensitivity, nausea/vomiting, dizziness/lightheadedness, etc.) Triggers or exacerbating factors Medication or treatments used including dosage Relief - complete, partial/improvement, or none There are also several free apps that can help you to track your headaches. I recommend: Migraine Manny N1-Headache documented in this encounter [facility] 09-07-2022 History of Presen t illness Narrative PEDIATRIC NEUROLOGY ESTABLISHED PATIENT VISIT Service Date: September 07, 2022 Service Time: 12:[address] Foss, I had the pleasure of evaluating Erno Villatoro in the Pediatric Neurology clinic on September 07, 2022 in consultation for the problem of headaches. My final impression and recommendations will be transmitted to the requesting physician by way of shared electronic medical record or letter via U[employer] Mail. Although her history is well known to you, please allow us to reiterate it for the purpose of our medical records. Eron is accompanied to today's clinic visit by her father who helped to provide the history. Available medical records were also reviewed and portions of the history have been summarized from any records available with details confirmed with her father. HPI Headaches were less frequent and severe since the last visit. Eron states they are occurring on average 2-3x a week. No new symptoms or changes. No side effects associated with Topamax. Initial HPI: Eron is a 17 year old female with a past medical history significant for Anxiety who is seen today for evaluation of headaches. Headaches have been occurring for approximately 3-4 years. Headaches have been increasing in frequency since March. Around 3-4 headaches a week. Pain is typically 6/10 on the pain scale. Pain is mostly frontal/temporal, L > R side. 04/13 she started Topamax, taking 50 mg daily. Has not noticed a difference in the headaches. 05/27 saw PCP for migraine. Received 60 mg of Toradol - no relief. Denies nausea, vomiting, phonophobia, numbness/tingling, one sided weakness, confusion, visual disturbances, speech disturbances, or balance concerns. Most of the headaches she wakes up with in the morning. States she wakes up in the middle of the night with head pain a few times a month. Recent sinus infection- 2 courses of antibiotics. Now recovering. Drinks a lot of water. Dehydration or lack of food can be a trigger. Not sure of anything else. Tried taking all OTC medications - used to provide relief but no longer does. Sleep typically helps. Started Lexapro 10 mg around 1 year ago- feels anxiety is well controlled. Previously tried Zoloft and Prozac- lack of efficacy Sleep History: Trouble falling asleep: No Trouble staying asleep: No School History: Name of School: [employer] School Absences due to headache past term: 0-5 days School Grade: 11th Grades: A's and B's Academic Performance: average Attention Disorders: none Behavior School: No problems Current Outpatient Therapies: None HISTORY: History Normal , full term, vaginal delivery. Developmental History: Gross Motor: Normal Fine Motor: Normal Speech/Language: Normal Play Skills: Normal Social: Normal Immunizations: Up to date Allergies: ALLERGIES Allergen Reactions Soap Itching Dove soap (itching under legs) Current Medications: Current Outpatient Medications Medication Sig rizatriptan (MAXALT CLOTH MEASURER) 5 mg disintegrating tablet Take 1 tablet by mouth once daily as needed. escitalopram oxalate (LEXAPRO) 10 mg tablet Take 1 tablet by mouth once daily. rizatriptan (MAXALT) 10 mg tablet Take 1 tablet by mouth as needed for migraine headache (see administration instructions). Take one(1) tablet at onset of headache. May repeat after 2 hours. Do not exceed 30 mg per day. topiramate (TOPAMAX) 50 mg tablet Take 1 tablet by mouth daily at bedtime. Topamax 75 mg daily. topiramate (TOPAMAX) 25 mg tablet Take 1 tablet by mouth daily at bedtime. Take 75 mg daily. No current facility-administered medications for this visit. Past Medical/Surgical History Head Injury: none Seizure: none Hospitalizations: none PAST MEDICAL HISTORY Diagnosis Date NEGATIVE MEDICAL HISTORY PAST SURGICAL HISTORY Procedure Laterality Date TYMPANOSTOMY LOCAL/TOPICAL ANESTHESIA 08/08/2006 Family History Problem Relation Age of Onset other (kidney stones) Mother Migraines Mother Migraines Maternal Grandmother Diabetes Paternal Grandmother Migraines Maternal Aunt Migraines Maternal Uncle Social History: Lives with: Mom and Dad in split homes Previous Laboratory/Imaging Studies: None. REVIEW OF SYSTEMS: Review of Systems Constitutional: Negative for significant weight loss. Head: +Headaches Eyes: Negative for visual disturbance. Ears: no hearing loss Respiratory: Negative for cough, shortness of breath and wheezing. Cardiovascular: Negative for chest pain, cyanosis and leg swelling. Gastrointestinal: Negative for abdominal pain, constipation and vomiting. Genitourinary: Negative for dysuria and frequent urination. Musculoskeletal: Negative for arthralgias, joint swelling and myalgias. Skin: Negative for itching, skin lesions and rash. Hematologic/Lymphatic: Negative for adenopathy, bruises/bleeds easily and prolonged bleeding. Endocrine: Negative for polyuria and short stature. Neurological: See History of Present Illness. CLINICAL EXAMINATION: 09/07/22 1150 BP: 119/64 Pulse: 68 Temp: 36.8 C (98.2 F) TempSrc: Temporal SpO2: 97% Weight: 98.4 kg (217 lb) Height: 174.7 cm (5' 8.78) On general physical examination, Eron is a 17 year old well-appearing and undistressed female. She is non-dysmorphic. There are no neurocutaneous stigmata. Auscultation of the heart and lungs is within normal limits. There is no hepatosplenomegaly. There are no orthopedic deformities or scoliosis. On neurological examination, mental status is normal. Cranial nerves II - XII are intact, with a normal fundoscopic examination, normal visual vela, and normal hearing. On motor examination, there is normal muscle bulk and tone. Strength is normal in both upper and lower extremities, both proximally and distally. Sensory examination is grossly intact. On cerebellar examination, there is no dysmetria. Romberg is negative and tandem gait well performed. Gait is within normal limits. Reflexes are symmetrical and equal in both upper and lower extremities. Plantar response is flexor bilaterally. IMPRESSION: In summary, Eron is a 17 year old girl with a past medical history significant for Anxiety/depression who presents today for evaluation of headaches. Her neurological examination is entirely normal and non-focal. Eron s constellation of neurological symptoms and signs is suggestive of a combination of Migraines without aura and Tension type headaches. Headaches improved, now occurring 2-3x a week. PLAN: The above was extensively discussed with the patient and Family including risks and benefits of medications. Appropriate handouts were provided (see Patient Instructions). Based on my findings, I would recommend the following: Preventive Medications: Increase Topamax to 75 mg at bedtime- discussed transition to Qudexy XR if needed Magnesium, CoQ10, and B2 Rescue Protocol: At onset of severe headache: Naproxen 660 mg by mouth, Maxalt 10 mg by mouth Two hours later if headache has not resolved: Acetaminophen 1000 mg by mouth and repeat Maxalt 10 mg by mouth. Rescue Protocol to be used no more than 2 days per week. Additional Medications: Continue Lexapro 10 mg Additional recommended testing: MRI negative Lifestyle Modification: Discussed appropriate lifestyle modification includin to 9 hrs sleep per night 60-80 oz of water per day No missed meals No missed school OTC medication/rescue medication no more than two days per week. Exercise regimen: 30 minutes of continuous exercise 3 days per week. Headache Diary: Reviewed benefits/essential components of headache diary to assist with headache identification, trigger identification, and evaluation of efficacy of rescue medications. I would like to see Eron in Clinic for a follow-up visit in 3 months. Thank you for the opportunity to participate in Eron s care. If we can answer any additional questions, we would be pleased to do so. Time Out: 12:20 PM I spent a total of 30 minutes on the date of the service which included preparing to see the patient, [id number] patient care, completing clinical documentation, obtaining and/or reviewing separately obtained history, performing a medically appropriate examination, counseling and educating the patient/family/caregiver, and ordering medications, tests, or procedures. Sincerely, Raul Junior APRN.PANEL INSTRUMENT REPAIRER Pediatric Neurology CC: Enoc Foss MD documented in this encounter [facility] 07-01-2022 History of Presen t illness Narrative Radiology Service Progress Note PATIENT NAME: Eron Villatoro DATE OF SERVICE: July 01, 2022 TIME: 9:55 AM PATIENT IDENTITY VERIFICATION COMPLETED USING TWO (2) IDENTIFIERS: Name and Date of confirmed by patient verbally. FALL SCREENING: Has the patient had 2 falls in the last year or 1 fall with injury or currently using an Ambulatory Assistive Device (Walker, Cane, Wheelchair, Crutches, etc.)? No PATIENT GENDER DATA: Female. status: : No status: NO. PATIENT RELEVANT IMPLANT DATA REVIEWED: Yes RADIOLOGY DEPARTMENT: MR; Exam(s) Completed: Head: Routine Brain PERIPHERAL IV DATA: Not applicable SIGNED BY: RT Nicho(Roshan) July 01, 2022 9:55 AM documented in this encounter [facility] 06-15-2022 Miscellaneous Notes SPECIFIC NOTES (if applicable): GENERAL INFORMATION - The listed prescriptions have been signed. If applicable, please notify the patient/family. - Unless noted in the intake documentation, I assume the medications are being used as directed; the patient is doing well; there are no side effects; and there are no undocumented medications or allergies. - This note was created using a speech to text program. There may be some incorrect words, spellings, and punctuation that were missed on review. Enoc Foss M.D. Last WCC: greater than one year ago and migraine appt on 05/27/2022 Verify RX Benefits Completed Last medication refill date: 05/13/2022 Requesting 30 day supply Retail pharmacy updated: Completed Patient aware RX will be sent to pharmacy. No need to notify patient. Immunizations due: COVID-19 VACCINE(1) Never done MENINGOCOCCAL B: Consider based on risk(1 of 2 - Risk Bexsero 2-dose series) Never done GC (GONORRHEA) SCREENING (<18) Never done CHLAMYDIA SCREENING (<18) Never done MENINGOCOCCAL CONJUGATE(2 - 2-dose series) due on 2021 INFLUENZA(1) due on 12/03/2021 DEPRESSION SCREENING due on 02/03/2022 Shireen Dey LPN documented in this encounter [facility] 06-01-2022 Instructions Raul Junior APRN.PANEL INSTRUMENT REPAIRER - 06/01/2022 4:05 PM EST If wanting to dose Migravent separately please see dosing of each containing element below: Magnesium: 1-3 y.o- 80 mg 4-8 y.o- 130 mg 9-13 y.o-240 mg 14-18 y.o-(female) 360 mg and (male) 410 mg [id number]: 100 mg- can be given up to three times daily B2 (Riboflavin): 200-400 mg Preventive Medication: Migravent Please contact me if adverse side effects are noticed/reported. Please DO NOT stop medication suddenly as medications should be slowly decreased rather than stopped abruptly. Rescue Protocol: At onset of severe headache, lay down in a dark, quiet room with a cold compress on forehead At onset of headache: Give 3 tab(s) (660 mg) of Aleve (Naproxen) by mouth and Maxalt 5 mg give 1 tab(s) by mouth. Two hours later, if headache has not resolved: Give 2 tab(s) (1000 mg) of Tylenol (Acetaminophen) by mouth and repeat Maxalt 5 mg give 1 tab(s) by mouth. Rescue protocol is to be used for severe headache only. Protocol can be repeated no more than 2 days per week. If rescue protocol does not work, please notify me and we will discuss next steps for rescue. If severe headache occurs during the school day, rescue protocol may be given in school. Please provide me with your school medication administration form and I will complete it for you. If severe headache occurs in school, rescue medication should be given. Patient can lay down in the nurse's office for no more than 30 minutes if needed. Patient should try to go back to class as soon as possible after taking rescue medication. General Headache Management: Medication Compliance Take prescribed preventive medication regularly as directed. Acute Headache Attacks Initiate non-pharmacologic measures at the earliest onset of your headache. Rest and quiet in a cool, dark environment. Relax and reduce stress. Cold compress to head (place a dry washcloth to forehead, cover with a blue freezer packet and use a headband to press the freezer packet across the forehead and temples). Don't wait!! Take the maximum allowable dosage of rescue medication at the very earliest sign of headache. Communicate Call your headache provider when problems arise, especially if your headaches change, increase in frequency/severity, or become associated with neurological symptoms (weakness, numbness, slurred speech, etc.). Headache/Pain Management Therapies Consider various complementary methods, including medication, behavioral therapy, psychological counseling, biofeedback, massage therapy, acupuncture, and other modalities. Such measures may reduce the need for medications Counseling for pain management, where patients learn to function with and gain control of their pain, is an essential element of managing chronic headaches. Headache Lifestyle Modifications: Consistent Sleep Schedule Aim for 8-9 hours of sleep per day Keep a set bedtime and set wakeup time. These times should vary by no more than 2 hours between weekdays/weekends. There should be NO electronics in the room during sleep (THIS INCLUDES TV, PHONE, AND TABLET!!). Avoid screen time 1 hour before bed. Hydration You should drink at least 40-60 oz of water per day. Some patients with a higher body weight may require up to 100 oz of water per day. There are a variety of water bottles with tracking markers which can help you keep track of your water intake throughout the day. There are also several water tracking apps for younger children including [employer]us or [employer]. You should bring a water bottle to school with you and drink consistently throughout the day. A letter for school stating that the student be allowed to carry a water bottle can be provided if needed. Exercise We recommend 30 minutes of continuous exercise at least 3 days per week. This can include walking, running, biking, swimming, etc. Just be sure you do not start and stop frequently (don't take the dog with you!) For patients who have experienced a significant decrease in physical activity due to chronic headaches, we recommend daily exercise alternating between cardiovascular exercise and strength training. Regular Meals Aim for 3 balanced meals each day to avoid spikes or dips in blood sugar. Do not skip any meals, especially breakfast. School Attendance Do not stay home from school just because you have a headache! Missed school days leads to higher stress and MORE HEADACHES! Rescue medication can be given in school (please see medication overuse section below). If you get a headache during the school week, take your rescue medication and go to school. Medication Overuse Rescue medication overuse leads to rebound headaches. Over the counter medication (Tylenol, Ibuprofen, Aleve, etc.) and prescription rescue medications (Triptans) should not be used more than 2 days per week. DO NOT use over the counter migraine medications (Advil-Migraine, Excedrin, etc.) as these contain multiple substances that can make headaches worse. Identifying Triggers: There are certain factors that may increase the likelihood of getting a headache or may exacerbate your headaches. Identifying triggers can help decrease or prevent headaches, particularly migraines. Common headache triggers include: Changes in sleep patterns including lack of sleep, napping, or oversleeping. Environmental factors such as changes in weather, bright lights, loud noises, or certain odors/pollutants. Stress including periods of high stress (both good and bad), significant life changes, or even a stress letdown (weekends or vacations). Physical activity such as overexerting yourself or exercising in heat. Lack of adequate intake such as skipping meals, fasting, or dehydration. Medication including overuse of rescue medications or skipping a dose of regularly prescribed medication. Dietary triggers including: Caffeine This includes coffee (including decaf), chocolate, tea, or cola/pop/soda 7-up, Sprite, Edda Mist, Cyndi Karina, Mug/A+W Root Beer, Minute Maid Benld, Slice are allowed MSG (monosodium glutamate) This includes Kazakh/ foods, all flavored chips such as Doritos, and Ramen noodles Nitrates/nitrites This includes deli meat, ham, alfonso, sausage, hot dogs Nitrate free deli meats are allowed Tyramine This includes aged cheese and commercial pizza Malian cheese, cottage cheese, Velveeta and fresh mozzarella are allowed Nutrasweet and other artificial sweeteners. Headache Diary: A headache diary can be helpful in the management of chronic headaches. It can help patients with frequent or daily headaches differentiate between a regular/tension-type headache and a migraine headache. It can also be helpful in identifying triggers and determining if rescue medications or other treatments are helpful. The following information should be included in a headache diary: Date of headache Time headache began and time headache ended Headache intensity (scale from 1-10) Associated symptoms (light/sound sensitivity, nausea/vomiting, dizziness/lightheadedness, etc.) Triggers or exacerbating factors Medication or treatments used including dosage Relief - complete, partial/improvement, or none There are also several free apps that can help you to track your headaches. I recommend: Migraine Manny N1-Headache documented in this encounter [facility] 06-01-2022 History of Presen t illness Narrative PEDIATRIC NEUROLOGY NEW PATIENT VISIT Service Date: 06/01/2022 Service Time: 3:[address] Foss, I had the pleasure of evaluating Eron C Shauna in the Pediatric Neurology clinic on 06/01/2022 in consultation for the problem of headaches. My final impression and recommendations will be transmitted to the requesting physician by way of shared electronic medical record or letter via U.[employer]. Mail. Although her history is well known to you, please allow us to reiterate it for the purpose of our medical records. Eron is accompanied to today's clinic visit by her father who helped to provide the history. Available medical records were also reviewed and portions of the history have been summarized from any records available with details confirmed with her father. HPI: Eron is a 17 year old female with a past medical history significant for Anxiety who is seen today for evaluation of headaches. Headaches have been occurring for approximately 3-4 years. Headaches have been increasing in frequency since March. Around 3-4 headaches a week. Pain is typically 6/10 on the pain scale. Pain is mostly frontal/temporal, L > R side. 04/13 she started Topamax, taking 50 mg daily. Has not noticed a difference in the headaches. 05/27 saw PCP for migraine. Received 60 mg of Toradol - no relief. Denies nausea, vomiting, phonophobia, numbness/tingling, one sided weakness, confusion, visual disturbances, speech disturbances, or balance concerns. Most of the headaches she wakes up with in the morning. States she wakes up in the middle of the night with head pain a few times a month. Recent sinus infection- 2 courses of antibiotics. Now recovering. Drinks a lot of water. Dehydration or lack of food can be a trigger. Not sure of anything else. Tried taking all OTC medications - used to provide relief but no longer does. Sleep typically helps. Started Lexapro 10 mg around 1 year ago- feels anxiety is well controlled. Previously tried Zoloft and Prozac- lack of efficacy Sleep History: Trouble falling asleep: No Trouble staying asleep: No School History: Name of School: [employer] School Absences due to headache past term: 0-5 days School Grade: 11th Grades: A's and B's Academic Performance: average Attention Disorders: none Behavior School: No problems Current Outpatient Therapies: None HISTORY: History Normal , full term, vaginal delivery. Developmental History: Gross Motor: Normal Fine Motor: Normal Speech/Language: Normal Play Skills: Normal Social: Normal Immunizations: Up to date Allergies: ALLERGIES Allergen Reactions Soap Itching Dove soap (itching under legs) Current Medications: Current Outpatient Medications Medication Sig amoxicillin-clavulanic acid (AUGMENTIN) 875-125 mg per tablet Take 1 tablet by mouth twice daily for 14 days. topiramate (TOPAMAX) 25 mg tablet Take 1 tablet by mouth twice daily. escitalopram oxalate (LEXAPRO) 10 mg tablet Take 1 tablet by mouth once daily. rizatriptan (MAXALT CLOTH MEASURER) 5 mg disintegrating tablet Take 1 tablet by mouth once daily as needed. No current facility-administered medications for this visit. Past Medical/Surgical History Head Injury: none Seizure: none Hospitalizations: none PAST MEDICAL HISTORY Diagnosis Date NEGATIVE MEDICAL HISTORY PAST SURGICAL HISTORY Procedure Laterality Date TYMPANOSTOMY LOCAL/TOPICAL ANESTHESIA 08/08/2006 Family History Problem Relation Age of Onset other (kidney stones) Mother Migraines Mother Migraines Maternal Grandmother Diabetes Paternal Grandmother Migraines Maternal Aunt Migraines Maternal Uncle Social History: Lives with: Mom and Dad in split homes Previous Laboratory/Imaging Studies: None. REVIEW OF SYSTEMS: Review of Systems Constitutional: Negative for significant weight loss. Head: +Headaches Eyes: Negative for visual disturbance. Ears: no hearing loss Respiratory: Negative for cough, shortness of breath and wheezing. Cardiovascular: Negative for chest pain, cyanosis and leg swelling. Gastrointestinal: Negative for abdominal pain, constipation and vomiting. Genitourinary: Negative for dysuria and frequent urination. Musculoskeletal: Negative for arthralgias, joint swelling and myalgias. Skin: Negative for itching, skin lesions and rash. Hematologic/Lymphatic: Negative for adenopathy, bruises/bleeds easily and prolonged bleeding. Endocrine: Negative for polyuria and short stature. Neurological: See History of Present Illness. CLINICAL EXAMINATION: 06/01/22 1536 BP: 133/67 Pulse: 99 Temp: 36.6 C (97.8 F) SpO2: 98% Weight: 96.2 kg (212 lb) Height: 172.3 cm (5' 7.84) On general physical examination, Eron is a 17 year old well-appearing and undistressed female. She is non-dysmorphic. There are no neurocutaneous stigmata. Auscultation of the heart and lungs is within normal limits. There is no hepatosplenomegaly. There are no orthopedic deformities or scoliosis. On neurological examination, mental status is normal. Cranial nerves II - XII are intact, with a normal fundoscopic examination, normal visual vela, and normal hearing. On motor examination, there is normal muscle bulk and tone. Strength is normal in both upper and lower extremities, both proximally and distally. Sensory examination is grossly intact. On cerebellar examination, there is no dysmetria. Romberg is negative and tandem gait well performed. Gait is within normal limits. Reflexes are symmetrical and equal in both upper and lower extremities. Plantar response is flexor bilaterally. IMPRESSION: In summary, Eron is a 17 year old girl with a past medical history significant for Anxiety/depression who presents today for evaluation of headaches. Her neurological examination is entirely normal and non-focal. Eron s constellation of neurological symptoms and signs is suggestive of a combination of Migraines without aura and Tension type headaches. Likely headaches have flared due to recent viral illnesses. Recommend lifestyle modifications and implementation of vitamins. PLAN: The above was extensively discussed with the patient and Family including risks and benefits of medications. Appropriate handouts were provided (see Patient Instructions). Based on my findings, I would recommend the following: Preventive Medications: Continue with Topamax 50 mg at bedtime as prescribed by PCP Magnesium, CoQ10, and B2 Rescue Protocol: At onset of severe headache: Naproxen 660 mg by mouth, Maxalt 5 mg by mouth Two hours later if headache has not resolved: Acetaminophen 1000 mg by mouth and repeat Maxalt 5 mg by mouth. Rescue Protocol to be used no more than 2 days per week. Additional Medications: Continue Lexapro 10 mg Additional recommended testing: Due pain waking Eron up at night, recommend MRI to rule out intracranial pathology- although unlikely due to chronicity of headaches. Lifestyle Modification: Discussed appropriate lifestyle modification includin to 9 hrs sleep per night 60-80 oz of water per day No missed meals No missed school OTC medication/rescue medication no more than two days per week. Exercise regimen: 30 minutes of continuous exercise 3 days per week. Headache Diary: Reviewed benefits/essential components of headache diary to assist with headache identification, trigger identification, and evaluation of efficacy of rescue medications. I would like to see Eron in Clinic for a follow-up visit in 3 months. Thank you for the opportunity to participate in Eron s care. If we can answer any additional questions, we would be pleased to do so. Time Out: 4:20 PM I spent a total of 60 minutes on the date of the service which included preparing to see the patient, [id number] patient care, completing clinical documentation, obtaining and/or reviewing separately obtained history, performing a medically appropriate examination, counseling and educating the patient/family/caregiver, and ordering medications, tests, or procedures. Sincerely, Raul Junior APRN.GAURANG Pediatric Neurology CC: Enoc Foss MD documented in this encounter [facility] 05-27-2022 History of Presen t illness Narrative The patient was seen for the issues discussed below. Problem list and history reviewed. Allergies reviewed. Medications reviewed. Immunizations reviewed. HISTORY: see history section below PHYSICAL EXAM: GENERAL: alert, well appearing, in no distress LEFT EYE: no drainage noted, no conjunctival injection noted; RIGHT EYE: no drainage noted, no conjunctival injection noted; NO ADDITIONAL EYE FINDINGS LEFT EAR: pinna normal, auditory canal normal, tympanic membrane clear, no effusion noted, RIGHT EAR: pinna normal, auditory canal normal, tympanic membrane clear, no effusion noted NOSE/SINUSES: nares normal, mucosa normal, no drainage noted OROPHARYNX: lips without lesions noted, gums/mucosa normal, oropharynx without erythema or exudates NECK/ADENOPATHY: neck supple, no adenopathy noted CHEST/LUNGS: lungs clear to auscultation CARDIOVASCULAR: regular rate and rhythm, capillary refill less than 2 seconds ABDOMEN: soft, nontender, bowel sounds normal, no masses, no organomegaly, abdomen nondistended SKIN: normal color, no rash, no jaundice, moist mucous membranes, turgor within normal limits OTHER: Gait within normal limits. Cranial nerves II through XII intact. Moving all extremities appropriately. GENERAL RECOMMENDATIONS: - Issues discussed in detail. - Symptom relief measures as needed. - Prescriptions, if ordered, are listed below. - Labs and/or X-rays, if ordered or obtained, are listed below. If the final results are not available at the conclusion of this visit, then additional recommendations may be made based on the final results. Note that all x-rays are reviewed by a radiologist before being considered final. - EKG, if ordered or obtained, is reviewed by a dairy equipment specialist before being considered final. Additional recommendations may be made based on the final results. - Return to clinic should current symptoms (if present) worsen, other problems develop, or as needed. ADDITIONAL & DICTATED PORTION: ADDITIONAL HISTORY The following Nursing History was reviewed with the family: Patient presents with: Headache: WHEELER x 3 days. Pt states she currently has a sinus infection and is on ATBs. Pt states WHEELER is excruciating, and she has attempted multiple remedies including tylenol / motrin, cool washcloths, laying in a dark room, sleeping, etc. Headache started Tuesday morning (today is ). It has been present constantly since that time. It has not responded to Motrin, Tylenol, or Excedrin. Last dosage of medication was last night. The patient was seen earlier this month and diagnosed with sinusitis. She was placed on amoxicillin at the time. Yesterday she was again seen and the antibiotic was increased to Augmentin. No fever. No eye pain, vision changes, or other eye complaints. No ear pain, tinnitus, hearing changes, balance issues, or other ear complaints. Nasal drainage has been present and alternates between green and yellow. No sore throat at this time. She has been experiencing intermittent sore throat for several days. Cough has been present. Occasionally potentially coughing up green material. No shortness of breath. No vomiting, diarrhea, abdominal pain. No rash or edema. No disorientation, gait abnormalities, balance issues, confusion or difficulty thinking, or history of head injury. The patient does have a history of migraine headaches and has been referred to neurology. Topamax prophylaxis was started in April and is currently being titrated. ACTIVE PROBLEM LIST Anxiety Malaise and Fatigue Dizzy Abdominal Pain Decreased Appetite Depression PAST MEDICAL HISTORY Diagnosis Date NEGATIVE MEDICAL HISTORY PAST SURGICAL HISTORY Procedure Laterality Date TYMPANOSTOMY LOCAL/TOPICAL ANESTHESIA 08/08/2006 ADDITIONAL EXAM / OTHER INFORMATION none ADDITIONAL IMPRESSION / PLAN I feel the headache represents a migraine. Discussed in detail. Recommended getting the neurology visit scheduled (the neurology department has been trying to reach the family). 60 mg dosage of IM Toradol given. We discussed that if the headache returns, then the possibility that the headache was actually secondary to worsening sinusitis could be present. Patient does not have symptoms consistent with intracranial abscess. Should the headache return, then emergency room evaluation would be indicated where CT of the sinuses and/or brain could be performed if needed. Due to the issue of the coexisting diagnosis of sinusitis, I will not be prescribing an course of oral Toradol (because if the headache returns then additional evaluation would be indicated). This note was partially generated using [employer] voice recognition system, and there may be some incorrect words, spellings, and punctuation that were not noted in checking the note before saving. Enoc Foss M.D. documented in this encounter [facility] 05-26-2022 History of Presen t illness Narrative PEDIATRIC SICK VISIT SERVICE DATE: 05/16/2022 SUBJECTIVE: Eron Villatoro is a 17 year old accompanied by mother who presents for re-evaluation of congestion and sinus tenderness. Patient seen in office last Tuesday (05/17/22) and diagnosed with bacterial sinus infection. Started on 14 day course Amoxicillin. Has completed 9 days thus far and states symptoms have not changed at all. Continues to have significant nasal congestion, thick rhinorrhea, productive cough, and headache. Denies fevers. Patient did try OTC Flonase for a few days, but did not notice any difference. History was obtained from: mother and patient HISTORY: ACTIVE PROBLEM LIST Depression - 07/24/2020 Anxiety - 02/03/2019 Malaise and Fatigue - 02/03/2019 Dizzy - 02/03/2019 Abdominal Pain - 02/03/2019 Decreased Appetite - 02/03/2019 PAST MEDICAL HISTORY Diagnosis Date NEGATIVE MEDICAL HISTORY PAST SURGICAL HISTORY Procedure Laterality Date TYMPANOSTOMY LOCAL/TOPICAL ANESTHESIA 08/08/2006 ALLERGIES Allergen Reactions Soap Itching Dove soap (itching under legs) topiramate (TOPAMAX) 25 mg tablet Take 1 tablet by mouth twice daily. escitalopram oxalate (LEXAPRO) 10 mg tablet Take 1 tablet by mouth once daily. amoxicillin-clavulanic acid (AUGMENTIN) 875-125 mg per tablet Take 1 tablet by mouth twice daily for 14 days. OBJECTIVE: 100 Pulse 80 Temp 36.3 C (97.4 F) (Temporal) Resp 18 Wt 97.7 kg (215 lb 4.8 oz) LMP 03/22/2022 General: alert and active in no apparent distress, cooperative, pleasant Eyes: conjunctiva clear, EOMI Ears: TMs translucent bilaterally, normal landmarks noted Nose: clear rhinorrhea/nasal congestion Sinuses: Tenderness to palpation frontal and ethmoid sinuses, pain with leaning forward OP: no lesions, no erythema, moist mucous membranes Neck: supple Lungs: clear to auscultation bilaterally, good air exchange, no retractions, breathing comfortably, no wheezes, rales, or rhonchi CVS: Normal rate, regular rhythm, no murmur Encounter Diagnosis ICD-10-CM 1. Bacterial sinusitis J32.9 B96.89 - Discontinue Amoxicillin at this time - Augmentin 1 tablet twice daily x 14 days - Instructed on nasal saline rinses and warm facial compresses - Increase fluids - All questions answered - Follow up for persistent/worsening symptoms or other concerns. May consider ENT referral for persistent symptoms SIGNATURE: Radha Pruett PA-C PATIENT NAME:Eron Villatoro DATE: 05/26/2022 TIME: 7:50 AM documented in this encounter [facility] 05-25-2022 Miscellaneous Notes Appointment scheduled for tomorrow at 730 AM with Radha Pruett PA-C. Advised to call or seek sooner care if any new or worsening sx would arise in the meantime. Reason for Disposition [1] Taking antibiotic > 3 days AND [2] sinus pain not improved Answer Assessment - Initial Assessment Questions 1. ANTIBIOTIC: What antibiotic is your child receiving? How many times per day? Amoxil twice daily 2. ANTIBIOTIC ONSET: When was the antibiotic started? 2/12 3. PAIN: How bad is the sinus pain? (Dull pain vs screaming with pain) Moderate pain 4. NBINAR-IGJF-YEMZA: Is your child getting better, staying the same or getting worse compared to yesterday? How about compared to the day you were seen? If getting worse, ask, In what way? Same as yesterday and same as day of office visit. 5. FEVER: Does your child have a fever? If so, ask: What is it, how was it measured and when did it start? no 6. SYMPTOMS: Are there any other symptoms you're concerned about? If so, ask: When did it start? Headache, nasal congestion 7. CHILD'S APPEARANCE: How sick is your child acting? What is he doing right now? If asleep, ask: How was he acting before he went to sleep? Awake, alert and in no distress Protocols used: Sinus Infection Follow-up [id number] documented in this encounter [facility] 05-17-2022 History of Presen t illness Narrative PEDIATRIC SICK VISIT SERVICE DATE: 05/16/2022 SUBJECTIVE: Eron Villatoro is a 17 year old accompanied by father who presents for evaluation of cough, sore throat, headache, fatigue, and congestion. Additionally reports bilateral ear discomfort/popping. Symptoms have been present 3 1/2 weeks, but seems to have worsened over the past week. Modifying Factors: Advil Severe Cold and Sinus without relief Symptoms include: Fever (?100.4F): No Cough: Yes Shortness of breath: No or Difficulty breathing or wheezing: No Fatigue: Yes Headache: Yes Sore throat: Yes Nasal congestion: Yes or Rhinorrhea: Yes (thick, purulent) Abdominal pain: No Nausea: Yes or Vomiting: No Diarrhea: No Rashes: No Decreased appetite: No Signs of dehydration (low fluid intake or voiding, dry mucus membranes): No Decreased level of consciousness: No History was obtained from: father and patient HISTORY: PAST MEDICAL HISTORY Diagnosis Date NEGATIVE MEDICAL HISTORY PAST SURGICAL HISTORY Procedure Laterality Date TYMPANOSTOMY LOCAL/TOPICAL ANESTHESIA 08/08/2006 ALLERGIES Allergen Reactions Soap Itching Dove soap (itching under legs) topiramate (TOPAMAX) 25 mg tablet Take 1 tablet by mouth twice daily. escitalopram oxalate (LEXAPRO) 10 mg tablet Take 1 tablet by mouth once daily. amoxicillin (AMOXIL) 875 mg tablet Take 1 tablet by mouth twice daily for 14 days. OBJECTIVE: Pulse 82 Temp 36.7 C (98.1 F) (Temporal) Resp 18 Wt 97.1 kg (214 lb) LMP 03/22/2022 General: alert and active in no apparent distress, cooperative, pleasant Eyes: conjunctiva clear, EOMI Ears: TMs translucent bilaterally, normal landmarks noted Nose: mucosal erythema, mucosal edema, +frontal and ethmoid sinus tenderness OP: no lesions, no erythema, moist mucous membranes Neck: supple, no adenopathy Lungs: clear to auscultation bilaterally, good air exchange, no retractions, breathing comfortably, no wheezes, rales, or rhonchi CVS: Normal rate, regular rhythm, no murmur Skin: No rashes, lesions or skin changes Encounter Diagnosis ICD-10-CM 1. Acute bacterial sinusitis J01.90 B96.89 - Discussed course of illness and contagiousness - Amoxicillin 875 mg twice daily x 14 days - Nasacort 2 sprays each nostril once daily - Symptomatic treatment with Acetaminophen/Ibuprofen - Recommend cool mist humidifier, steamy bathroom - Nasal saline can be helpful in thinning up nasal secretions - Increase fluids - All questions answered - Follow up for persistent/worsening symptoms or other concerns SIGNATURE: Radha Pruett PA-C PATIENT NAME:Eron Villatoro DATE: 05/17/2022 TIME: 11:38 AM documented in this encounter [facility] 04-14-2022 Miscellaneous Notes spoke with father, is aware of need for appt, transferred to [facility] for scheduling. If unable to schedule at this time due to insurance becoming active on 05/05/22, father will call back at that time to schedule Kim Hernandez RN Attempted to call; no answer and voicemail box has not been set up. Hayley Aaron RN Referral/s needed are listed below. Unless also noted below, the family has not yet decided on their preference in terms of location/provider, or has not had time to check with their insurance regarding restrictions. Once the family has made their decision, then precise arrangements, orders, etc. can be created. Consult pediatric neurology. Diagnosis is probable migraine headaches. This note was partially generated using [employer] voice recognition system, and there may be some incorrect words, spellings, and punctuation that were not noted in checking the note before saving. Enoc Foss MD documented in this encounter [facility] 04-13-2022 History of Presen t illness Narrative The patient was seen for the issues discussed below. Problem list and history reviewed. Allergies reviewed. Medications reviewed. Immunizations reviewed. HISTORY: see history section below PHYSICAL EXAM: GENERAL: alert, well appearing, in no distress LEFT EYE: no drainage noted, no conjunctival injection noted; RIGHT EYE: no drainage noted, no conjunctival injection noted; NO ADDITIONAL EYE FINDINGS LEFT EAR: pinna normal, auditory canal normal, tympanic membrane clear, effusion present (clear, mild), RIGHT EAR: pinna normal, auditory canal normal, tympanic membrane clear, effusion present (clear, mild) NOSE/SINUSES: nares normal, mucosa normal, no drainage noted OROPHARYNX: lips without lesions noted, gums/mucosa normal, oropharynx without erythema or exudates NECK/ADENOPATHY: neck supple, no adenopathy noted CHEST/LUNGS: lungs clear to auscultation CARDIOVASCULAR: regular rate and rhythm, capillary refill less than 2 seconds ABDOMEN: soft, nontender, bowel sounds normal, no masses, no organomegaly, abdomen nondistended SKIN: normal color, no rash, no jaundice, moist mucous membranes, turgor within normal limits NEUROLOGICAL: cranial nerves II-XII grossly intact, deep tendon reflexes 2+/4+ throughout, muscle mass and tone normal, normal age appropriate gait, no involuntary motions., negative findings: Romberg negative GENERAL RECOMMENDATIONS: - Issues discussed in detail. - Symptom relief measures as needed. - Prescriptions, if ordered, are listed below. - Labs and/or X-rays, if ordered or obtained, are listed below. If the final results are not available at the conclusion of this visit, then additional recommendations may be made based on the final results. Note that all x-rays are reviewed by a radiologist before being considered final. - EKG, if ordered or obtained, is reviewed by a dairy equipment specialist before being considered final. Additional recommendations may be made based on the final results. - Return to clinic should current symptoms (if present) worsen, other problems develop, or as needed. ADDITIONAL & DICTATED PORTION: ADDITIONAL HISTORY The following Nursing History was reviewed with the family: Patient presents with: Headaches: onset a couple of years, worse over the past year and over the past 6 months more frequent/worse. has tried tylenol, ibuprofen, excedrin, nothing works. random times throughout the day, approx 4 days per week. sometimes sleep helps to get rid of headaches. light and sound makes worse. bilateral ear pain times a couple of days random epistaxis, sometimes with headaches sometimes not, 2 over this past month. just starts randomly, today was walking the haley at school and it just started. lasts for The patient has had headaches for approximately 3 years. Over the past 6 months they have become more frequent and more severe. They are currently averaging approximately 4 times per week (ranges 2-6 episodes per week). 4 days ago the patient had a severe headache which by 2 days ago had become excruciating. It is less severe at this time. The headache is described as covering the entire top of the head. Described as a band around the head with squeezing/pressure sensation. Also described as throbbing however. No associated nausea and vomiting. Patient does have associated dizziness and lightheadedness. She describes the headache as being oleksandr when she stands up. This includes visual field darkening at the time. The headache does not radiate. Possible aura is present. No visual or hearing changes. No specific trigger has been noted. She has noted she tends to get a headache if she has not been drinking well in hot weather. Headache is usually helped by Excedrin (less effective recently). It has also been treated with Motrin and Tylenol. Sleep helps but does not resolve the headache. The headache has awakened the patient 7-8 times over the past 6 months (specific questioning indicates it does not start shortly after awakening, but actually does awaken the patient). No history of paresthesias or weakness. No gait abnormalities. No visual or hearing changes. Family history positive for mother with classic migraine. Maternal uncle and maternal grandmother also have a history of chronic headaches. Review of systems negative except for ears popping recently. Patient also had an episode of epistaxis today (rare for the patient). Specific review of systems negative for fevers. No other eye complaints. No nose or throat complaints. No lymphadenopathy. No bleeding or bruising. No cough, wheezing, shortness of breath. No vomiting, diarrhea, abdominal pain. No rash or edema. ACTIVE PROBLEM LIST Anxiety Malaise and Fatigue Dizzy Abdominal Pain Decreased Appetite Depression PAST MEDICAL HISTORY Diagnosis Date NEGATIVE MEDICAL HISTORY PAST SURGICAL HISTORY Procedure Laterality Date TYMPANOSTOMY LOCAL/TOPICAL ANESTHESIA 08/08/2006 ADDITIONAL EXAM / OTHER INFORMATION none ADDITIONAL IMPRESSION / PLAN 1. Headache, probable migraine. Patient does have some symptoms that are more consistent with muscle tension headaches (which could be triggering migraines). She also has some symptoms that are uncommon for migraines such as the headache actually awakening her at night. Vasovagal responses also are present based on the history. History not consistent with a basilar migraine. The frequency of the headaches is such that acute management of individual headaches would be less effective as compared to prophylaxis. This was discussed in detail. Options were reviewed. Different migraine prophylaxis medications also reviewed. After careful consideration it was decided to place the patient on Topamax prophylaxis. We will start at 25 mg daily. This will need to be titrated appropriately. Family to call in 1 week with how the patient is doing. Neurology referral also to be obtained. The option of imaging will be at the neurologist discretion. For acute management, patient's use of Excedrin or Motrin can be continued. 2. Serous otitis bilaterally. Discussed in detail. Yawning and chewing gum recommended. I spent a total of 40-54 minutes on the date of service. This included preparing to see the patient; ifco-fi-[id number] patient care; obtaining and/or reviewing separately obtained history; performing a medically appropriate examination; counseling and educating the patient/family/caregiver; and completing clinical documentation. As applicable, this also included ordering medications, tests, or procedures; independently interpreting results; communicating results to the patient/family/caregiver; and care coordination (not separately reported). This note was partially generated using [employer] voice recognition system, and there may be some incorrect words, spellings, and punctuation that were not noted in checking the note before saving. Enoc Foss M.D. documented in this encounter [facility] 04-12-2022 Miscellaneous Notes Appointment scheduled for tomorrow at 5 PM with PCP. Advised to call or seek sooner care if any new or worsening sx would arise in the meantime. Reason for Disposition [1] MODERATE headache (interferes with some activities) AND [2] doesn't improve with pain medicine AND [3] present > 24 hours (Exception: analgesics not tried or headache part of viral illness) Answer Assessment - Initial Assessment Questions 1. LOCATION: Where does it hurt? Tell younger children to Point to where it hurts. All around head 2. ONSET: When did the headache start? (Minutes, hours or days) 4 months ago 3. PATTERN: Does the pain come and go, or is it constant? If constant: Is it getting better, staying the same, or worsening? If intermittent: How long does it last? Does your child have pain now? (Note: serious pain is constant and usually worsens) Intermittent, worsening over the last 3-4 weeks 4. SEVERITY: How bad is the pain? and What does it keep your child from doing? - MILD: doesn't interfere with normal activities - MODERATE: interferes with normal activities or awakens from sleep - SEVERE: excruciating pain, can't do any normal activities Pain has been moderate 5. RECURRENT SYMPTOM: Has your child ever had headaches before? If so, ask: When was the last time? and What happened that time? Yes, intermittently, not relieved by Tylenol, Excedrin, or Motrin 6. CAUSE: What do you think is causing the headache? ? migraine 7. HEAD INJURY: Has there been any recent injury to the head? no 8. MIGRAINE: Does your child have a history of migraine headaches? Is there any family history for migraine headaches? No personal history of migraines, but there is a family history. 9. CHILD'S APPEARANCE: How sick is your child acting? What is he doing right now? If asleep, ask: How was he acting before he went to sleep? Awake, alert and in no distress Protocols used: [id number] documented in this encounter [facility] Evaluation note Diagnosis Migraine without status migrainosus, not intractable, unspecified migraine type- Primary Bilateral acute serous otitis media, recurrence not specified [facility] Diagnosis Acute bacterial sinusitis- Primary Acute sinusitis, unspecified [facility] Diagnosis Bacterial sinusitis- Primary Unspecified sinusitis (chronic) [facility] Diagnosis Migraine without status migrainosus, not intractable, unspecified migraine type- Primary [facility] Diagnosis Migraine without status migrainosus, not intractable, unspecified migraine type- Primary Tension headache Nonintractable headache, unspecified chronicity pattern, unspecified headache type [facility] Diagnosis Migraine without status migrainosus, not intractable, unspecified migraine type- Primary Tension headache [facility] Diagnosis Migraine without status migrainosus, not intractable, unspecified migraine type- Primary [facility] Diagnosis Migraine without status migrainosus, not intractable, unspecified migraine type- Primary Tension headache [facility] noteNo assessment information availableWClinton [facility] Work Phone: Evaluation note* Diagnosis Nonintractable headache, unspecified chronicity pattern, unspecified headache type [facility] Diagnosis Migraine without aura and without status migrainosus, not intractable- Primary Migraine without aura, without mention of intractable migraine without mention of status migrainosus Generalized anxiety disorder Menstrual migraine without status migrainosus, not intractable Menstrual migraine, without mention of intractable migraine without mention of status migrainosus Chronic migraine without aura, intractable, without status migrainosus [facility] Diagnosis Acute cough [facility] Diagnosis Mass of upper inner quadrant of right breast- Primary Fibrocystic breast changes of both breasts Mastodynia Excess weight Overweight Family history of breast cancer Family history of malignant neoplasm of breast Mass of upper inner quadrant of right breast [facility] Diagnosis Mass of upper inner quadrant of right breast [facility] Diagnosis Chronic migraine with aura without status migrainosus, not intractable- Primary Encounter for long-term (current) use of medications Encounter for long-term (current) use of other medications [facility] Diagnosis Chronic migraine with aura without status migrainosus, not intractable- Primary Migraine without aura and without status migrainosus, not intractable Migraine without aura, without mention of intractable migraine without mention of status migrainosus Menstrual migraine without status migrainosus, not intractable Menstrual migraine, without mention of intractable migraine without mention of status migrainosus [facility] Diagnosis Chronic migraine with aura without status migrainosus, not intractable Migraine without aura and without status migrainosus, not intractable Migraine without aura, without mention of intractable migraine without mention of status migrainosus Menstrual migraine without status migrainosus, not intractable Menstrual migraine, without mention of intractable migraine without mention of status migrainosus [facility] Diagnostic Procedure Only (Routine) - Closed Specialty Diagnoses / Procedures Referred By Brynn clay Referred To Contact [facility] Diagnoses Mass of upper inner quadrant of right breast Procedures US BREAST LTD RIGHT US BREAST UNI REAL TIME WITH IMAGE LIMITED Roger August APRN.PANEL INSTRUMENT REPAIRER [address] [place] [address] [facility] [address] [place] [address] Referral ID Status Reason Start Date Expiration Date V isits Requested Visits Authorized [id number] Closed Auto-Generated Referral Clearance Not Met -Financial Clearance Bypassed 04/24/2024 05/24/2025 1 [facility] Diagnostic Procedure Only (Routine) - Closed Specialty Diagnoses / Procedures Referred By Contac t Referred To Contact [facility] Diagnoses Mass of upper inner quadrant of right breast Procedures US BREAST LTD RIGHT US BREAST UNI REAL TIME WITH IMAGE LIMITED Roger August APRN.CNP [address] [place] [address] [facility] [address] [place] [address] Referral ID Status Reason Start Date Expiration Date V isits Requested Visits Authorized [id number] Closed Auto-Generated Referral Clearance Not Met -Financial Clearance Bypassed 04/24/2024 05/24/2025 1 1 [facility] Summary Purpose Family History No Family History Records FoundNo Family History Records FoundNo Family History Records FoundNo Family History Records Found Advance Directives No Advanced Directives Records FoundNo Advanced Directives Records FoundNo Advanced Directives Records FoundNo Advanced Directives Records Found Reason for Referral Specialty Diagnoses / Procedures Referred By Contac t Referred To Contact Pediatric Neurology Diagnoses Migraine without status migrainosus, not intractable, unspecified migraine type Procedures CONSULT TO PEDS NEUROLOGY OFFICE/OUTPATIENT [facility] 60-74 MINUTES Enoc Foss MD [address] [place] [address] Referral ID Status Reason Start Date Expiration Date Visits Requested Visits Authorized [id number] Pending Review PCP Requested Referral 04/13/2022 04/13/2023 1 1 Specialty Diagnoses / Procedures Referred By Contac t Referred To Contact [facility] Diagnoses Nonintractable headache, unspecified chronicity pattern, unspecified headache type Procedures MRI BRAIN WO IVCON MRI BRAIN BRAIN STEM W/O CONTRAST MATERIAL Raul Junior PROFESSOR OF MARKETING.PANEL INSTRUMENT REPAIRER [address] [place] [address] [facility] Referral ID Status Reason Start Date Expiration Date Visits Requested Visits Authorized [id number] Authorized Auto-Generat ed Referral 06/01/2022 07/01/2023 1 1 Specialty Diagnoses / Procedures Referred By Contac t Referred To Contact [facility] Diagnoses Nonintractable headache, unspecified chronicity pattern, unspecified headache type Procedures MRI BRAIN WO IVCON MRI BRAIN BRAIN STEM W/O CONTRAST MATERIAL Raul Junior, PROFESSOR OF MARKETING.PANEL INSTRUMENT REPAIRER [address] [place] [address] [place] [address] Referral ID Status Reason Start Date Expiration Date V isits Requested Visits Authorized [id number] Closed Auto-Generate d Referral 06/01/2022 07/01/2023 1 1 Specialty Diagnoses / Procedures Referred By Contac t Referred To Contact Diagnoses Migraine without aura and without status migrainosus, not intractable Procedures PROVIDER ORDERED FOLLOW UP OFFICE/OUTPATIENT [facility] 60 MINUTES Tyesha Friedman MD [address] [place] [address] Referral ID Status Reason Start Date Expiration Date Visits Requested Visits Authorized [id number] Authorized PCP Requested Referral 07/13/2024 1 1 Specialty Diagnoses / Procedures Referred By Contac t Referred To Contact Diagnoses Generalized anxiety disorder Procedures CONSULT TO PSYCHIATRY OFFICE/OUTPATIENT [facility] 60 MINUTES Tyesha Friedman MD [address] [place] [address] Referral ID Status Reason Start Date Expiration Date Visits Requested Visits Authorized [id number] Pending Review PCP Requested Referral 07/14/2023 07/13/2024 1 1 Medications Administered Section Inactive Administered Medications - up to 3 most recent administrations Medication Order MAR Action Action Date Dose Rate Site keTORolac 60 mg injection (TORADOL) 60 mg, INTRAMUSCULAR, ONCE, 1 dose, On Maryan 05/27/22 at 1500, Ketorolac (Toradol) is indicated for the short-term (up to 5 days) management of moderately severe acute pain. Continuation of ketorolac (Toradol) beyond 5 days increases the risk of developing serious adverse events. Please verify the duration of therapy for ketorolac (Toradol)., If ordered PRN for pain, patient/guardian may elect to receive this medication for higher pain levels INSTEAD of the opioid, if preferred: Yes Given 05/27/2022 3:03 PM EST 60 mg Buttocks, Left Chief Complaint and Reason for Visit Chief Complaint CHRONIC SINUSITIS Additional Source Comments INFORMATION SOURCE (unrecogn ized section and content) DATE CREATED AUTHOR 12/18/2019 [facility] ([place]) DATE CREATED AUTHOR AUTHOR'S ORGANIZ ATION 01/31/2023 [facility] DATE CREATED AUTHOR AUTHOR'S ORGANIZ ATION 12/07/2024 [facility] DATE CREATED AUTHOR AUTHOR'S ORGANIZ ATION 01/21/2025 [facility] Source Comments (unrecognize d section and content) In the event this informatio n is protected by the Federal Confidentiality of Alcohol and Drug Abuse Patient Records regulations: The Federal rules restrict any use of the information to criminally investigate or prosecute any alcohol or drug abuse patient.[facility] the event this information is protected by the Federal Confidentiality of Alcohol and Drug Abuse Patient Records regulations: The Federal rules restrict any use of the information to criminally investigate or prosecute any alcohol or drug abuse patient.[facility] HospitalIn the event this information is protected by the Federal Confidentiality of Alcohol and Drug Abuse Patient Records regulations: The Federal rules restrict any use of the information to criminally investigate or prosecute any alcohol or drug abuse patient.[facility] HospitalIn the event this information is protected by the Federal Confidentiality of Alcohol and Drug Abuse Patient Records regulations: The Federal rules restrict any use of the information to criminally investigate or prosecute any alcohol or drug abuse patient.[facility] HospitalIn the event this information is protected by the Federal Confidentiality of Alcohol and Drug Abuse Patient Records regulations: The Federal rules restrict any use of the information to criminally investigate or prosecute any alcohol or drug abuse patient.[facility] HospitalIn the event this information is protected by the Federal Confidentiality of Alcohol and Drug Abuse Patient Records regulations: The Federal rules restrict any use of the information to criminally investigate or prosecute any alcohol or drug abuse patient.[facility] HospitalIn the event this information is protected by the Federal Confidentiality of Alcohol and Drug Abuse Patient Records regulations: The Federal rules restrict any use of the information to criminally investigate or prosecute any alcohol or drug abuse patient.[facility] HospitalIn the event this information is protected by the Federal Confidentiality of Alcohol and Drug Abuse Patient Records regulations: The Federal rules restrict any use of the information to criminally investigate or prosecute any alcohol or drug abuse patient.[facility] HospitalIn the event this information is protected by the Federal Confidentiality of Alcohol and Drug Abuse Patient Records regulations: The Federal rules restrict any use of the information to criminally investigate or prosecute any alcohol or drug abuse patient.[facility] HospitalIn the event this information is protected by the Federal Confidentiality of Alcohol and Drug Abuse Patient Records regulations: The Federal rules restrict any use of the information to criminally investigate or prosecute any alcohol or drug abuse patient.[facility] HospitalIn the event this information is protected by the Federal Confidentiality of Alcohol and Drug Abuse Patient Records regulations: The Federal rules restrict any use of the information to criminally investigate or prosecute any alcohol or drug abuse patient.[facility] HospitalIn the event this information is protected by the Federal Confidentiality of Alcohol and Drug Abuse Patient Records regulations: The Federal rules restrict any use of the information to criminally investigate or prosecute any alcohol or drug abuse patient.[facility] HospitalIn the event this information is protected by the Federal Confidentiality of Alcohol and Drug Abuse Patient Records regulations: The Federal rules restrict any use of the information to criminally investigate or prosecute any alcohol or drug abuse patient.[facility] HospitalIn the event this information is protected by the Federal Confidentiality of Alcohol and Drug Abuse Patient Records regulations: The Federal rules restrict any use of the information to criminally investigate or prosecute any alcohol or drug abuse patient.[facility] HospitalIn the event this information is protected by the Federal Confidentiality of Alcohol and Drug Abuse Patient Records regulations: The Federal rules restrict any use of the information to criminally investigate or prosecute any alcohol or drug abuse patient.[facility] HospitalIn the event this information is protected by the Federal Confidentiality of Alcohol and Drug Abuse Patient Records regulations: The Federal rules restrict any use of the information to criminally investigate or prosecute any alcohol or drug abuse patient.[facility] HospitalIn the event this information is protected by the Federal Confidentiality of Alcohol and Drug Abuse Patient Records regulations: The Federal rules restrict any use of the information to criminally investigate or prosecute any alcohol or drug abuse patient.[facility] HospitalIn the event this information is protected by the Federal Confidentiality of Alcohol and Drug Abuse Patient Records regulations: The Federal rules restrict any use of the information to criminally investigate or prosecute any alcohol or drug abuse patient.[facility] HospitalIn the event this information is protected by the Federal Confidentiality of Alcohol and Drug Abuse Patient Records regulations: The Federal rules restrict any use of the information to criminally investigate or prosecute any alcohol or drug abuse patient.[facility] HospitalIn the event this information is protected by the Federal Confidentiality of Alcohol and Drug Abuse Patient Records regulations: The Federal rules restrict any use of the information to criminally investigate or prosecute any alcohol or drug abuse patient.[facility] HospitalIn the event this information is protected by the Federal Confidentiality of Alcohol and Drug Abuse Patient Records regulations: The Federal rules restrict any use of the information to criminally investigate or prosecute any alcohol or drug abuse patient.[facility] HospitalIn the event this information is protected by the Federal Confidentiality of Alcohol and Drug Abuse Patient Records regulations: The Federal rules restrict any use of the information to criminally investigate or prosecute any alcohol or drug abuse patient.[facility] HospitalIn the event this information is protected by the Federal Confidentiality of Alcohol and Drug Abuse Patient Records regulations: The Federal rules restrict any use of the information to criminally investigate or prosecute any alcohol or drug abuse patient.[facility] HospitalIn the event this information is protected by the Federal Confidentiality of Alcohol and Drug Abuse Patient Records regulations: The Federal rules restrict any use of the information to criminally investigate or prosecute any alcohol or drug abuse patient.[facility] HospitalIn the event this information is protected by the Federal Confidentiality of Alcohol and Drug Abuse Patient Records regulations: The Federal rules restrict any use of the information to criminally investigate or prosecute any alcohol or drug abuse patient.[facility] HospitalIn the event this information is protected by the Federal Confidentiality of Alcohol and Drug Abuse Patient Records regulations: The Federal rules restrict any use of the information to criminally investigate or prosecute any alcohol or drug abuse patient.[facility] HospitalIn the event this information is protected by the Federal Confidentiality of Alcohol and Drug Abuse Patient Records regulations: The Federal rules restrict any use of the information to criminally investigate or prosecute any alcohol or drug abuse patient.[facility] HospitalIn the event this information is protected by the Federal Confidentiality of Alcohol and Drug Abuse Patient Records regulations: The Federal rules restrict any use of the information to criminally investigate or prosecute any alcohol or drug abuse patient.[facility] Reason for Visit (unrecogniz ed section and content) Reason Comments Headache Reason Comments Headaches onset a couple of ye ars, worse over the past year and over the past 6 months more frequent/worse. has tried tylenol, ibuprofen, excedrin, nothing works. random times throughout the day, approx 4 days per week. sometimes sleep helps to get rid of headaches. light and sound makes worse.bilateral ear pain times a couple of daysrandom epistaxis, sometimes with headaches sometimes not, 2 over this past month. just starts randomly, today was walking the haley at school and it just started. lasts for Specialty Diagnoses / Procedures Referred By Brynn t Referred To Contact Pediatrics / PRIMARY CARE PEDIATRICS Diagnoses Headaches headaches x 4-5 months, worsening over the last 3-4 weeks, no fevers, head injuries etc Procedures OFFICE/OUTPATIENT ESTABLISHED MOD MDM 30-39 MIN 4C SAME DAY 30 Self Enoc Foss MD [address] [place] [address] Referral ID Status Reason Start Date Expiration Date Visits Requested Visits Authorized [id number] Authorized Financial Clearance Required - Self Pay Patient Cleared - Qualified 100% FAS 04/13/2022 07/12/2022 99 99 Reason Comments Referral Request Reason Comments Cough Sore throat, congest ed, [id number], watery eyes, headache, lethargic, nausea. No fever. Has had SX for 3 weeks but worse in the last week. Was at [facility] 3 1/2 weeks ago and they said viral-no meds. Taking Advil Severe Cold /Sinus off and on Reason Comments Sinus Infection,frequent/recurring Reason Comments Sinus Problems Pt was DX with sinus infection last Tuesday. On Amoxcil. Hasn't done anything. Cough-green, sore throat, runny nose, headache. No fever. Reason Comments Headache WHEELER x 3 days. Pt stat es she currently has a sinus infection and is on ATBs. Pt states WHEELER is excruciating, and she has attempted multiple remedies including tylenol / motrin, cool washcloths, laying in a dark room, sleeping, etc. Reason Comments New Patient Specialty Diagnoses / Procedures Referred By Brynn clay Referred To Contact Pediatric Neurology Diagnoses Migraine without status migrainosus, not intractable, unspecified migraine type Procedures CONSULT TO PEDS NEUROLOGY OFFICE/OUTPATIENT NEW HIGH MDM 60-74 MINUTES Enoc Foss MD [address] [place] [address] Referral ID Status Reason Start Date Expiration Date V isits Requested Visits Authorized [id number] Closed PCP Requested Referral 04/13/2022 04/13/2023 1 1 Reason Onset Date Comments Refill Request 06/15/2022 Reason Comments Established Patient Reason Onset Date Comments Refill Request 09/21/2022 Reason Comments Mat Roller - Other Medication refi ll Reason Onset Date Comments Refill Request 12/17/2022 Specialty Diagnoses / Procedures Referred By Brynn clay Referred To Contact MR IMAGING Diagnoses Nonintractable headache, unspecified chronicity pattern, unspecified headache type Procedures MRI BRAIN WO IVCON MRI BRAIN BRAIN STEM W/O CONTRAST MATERIAL Raul Junior APRN.PANEL INSTRUMENT REPAIRER [address] [place] [address] Mr Imaging [id number] Referral ID Status Reason Start Date Expiration Date V isits Requested Visits Authorized [id number] Closed Auto-Generate d Referral 06/01/2022 07/01/2023 1 1 Reason Comments Follow Up Specialty Diagnoses / Procedures Referred By Contac t Referred To Contact Diagnoses Migraine without aura and without status migrainosus, not intractable Procedures PROVIDER ORDERED FOLLOW UP OFFICE/OUTPATIENT [facility] 60-74 MINUTES Tyesha Friedman MD [address] [place] [id number] Referral ID Status Reason Start Date Expiration Date V isits Requested Visits Authorized [id number] Closed PCP Requested Referral 06/16/2023 03/16/2024 1 1 Reason Onset Date Comments Refill Request 04/06/2024 Reason Comments New Patient Right breast lump th at she felt 6 months ago, no changes in size; she feels that the lump is fixed and firm; gulf ball size; lump is above the nipple; no concerns with the nipple; a wk ago she noticed white spots around the area of the lump; the right breast appears darker than the left; no other breast concerns at this time Reason Comments Radiology Mammogram US Specialty Diagnoses / Procedures Referred By Contac t Referred To Contact BR IMAGING Diagnoses Mass of upper inner quadrant of right breast Procedures US BREAST LTD RIGHT US BREAST UNI REAL TIME WITH IMAGE LIMITED Roger August, INES.PANEL INSTRUMENT REPAIRER [address] [place] [address] [facility] [address] [place] [address] Referral ID Status Reason Start Date Expiration Date V isits Requested Visits Authorized [id number] Closed Auto-Generated Referral Clearance Not Met -Financial Clearance Bypassed 04/24/2024 05/24/2025 1 1 Reason Comments Established Patient Follow Up Chronic Migraine Specialty Diagnoses / Procedures Referred By Contac t Referred To Contact Diagnoses Migraine without aura and without status migrainosus, not intractable Procedures PROVIDER ORDERED FOLLOW UP OFFICE/OUTPATIENT NEW HIGH MDM 60 MINUTES Tyesha Friedman MD [address] [facility] [place] [address] Phone: tel: fax: Referral ID Status Reason Start Date Expiration Date V isits Requested Visits Authorized [id number] Closed PCP Requested Referral 01/13/2024 07/13/2024 1 1 Reason Comments Insurance Authorization Ubrelvy/Bath/[id number] Reason Comments Established Patient Follow-Up Reason Comments Insurance Authorization AJOVY AJOVY Reason Comments Follow Up Specialty Diagnoses / Procedures Referred By Contac t Referred To Contact Diagnoses Chronic migraine with aura without status migrainosus, not intractable Migraine without aura and without status migrainosus, not intractable Menstrual migraine without status migrainosus, not intractable Procedures OFFICE/OUTPATIENT NEW HIGH MDM 60 MINUTES Tyesha Friedman MD [address] [facility] [address] Phone: tel: fax: Referral ID Status Reason Start Date Expiration Date V isits Requested Visits Authorized [id number] Closed PCP Requested Referral 11/20/2024 08/20/2025 1 1 Care Teams (unrecognized sec tion and content) [employer] Interpreter Relationship Specialty Start Date End Date Enoc Foss MD [address] [place], [place] [id number] PCP - General Pediatrics 04/24/20 [employer] Interpreter Relationship Specialty Start Date End Date Enoc Foss MD [address] [place], [place] [id number] PCP - General Pediatrics 04/24/20 [employer] Interpreter Relationship Specialty Start Date End Date Enco Foss MD [address] [place], [place] [id number] PCP - General Pediatrics 04/24/20 [employer] Interpreter Relationship Specialty Start Date End Date Enoc Foss MD [address] [place], [place] [id number] PCP - General Pediatrics 04/24/20 [employer] Interpreter Relationship Specialty Start Date End Date Enoc Foss MD [address] [facility] [place] [address] PCP - General Pediatrics 04/24/20 [employer] Interpreter Relationship Specialty Start Date End Date Enoc Foss MD [address] [place] [address] PCP - General Pediatrics 04/24/20 [employer] Interpreter Relationship Specialty [place] [address] [place] [address] [place] [address] PCP - General Pediatrics 04/24/20 [employer] Interpreter Relationship Specialty Start Date End Date Enoc Foss MD [address] [place] [address] [place] [address] PCP - General Pediatrics 04/24/20 [employer] Interpreter Relationship Specialty Start Date End Date Enoc Foss MD [address] [facility] [place] [address] PCP - General Pediatrics 04/24/20 [employer] Interpreter Relationship Specialty [place] [address] [place] [address] [place] [address] PCP - General Pediatrics 04/24/20 [employer] Interpreter Relationship Specialty Start Date End Date Enoc Foss MD [address] [facility] [place] [address] PCP - General Pediatrics 04/24/20 [employer] Interpreter Relationship Specialty Start Date End Date Enoc Foss MD [address] [place] [address], [place] [address] PCP - General Pediatrics 04/24/20 [employer] Interpreter Relationship Specialty Start Date End Date Enoc Foss MD [address] [place] [id number] PCP - General Pediatrics 04/24/20 [employer] Interpreter Relationship Specialty Start Date End Date Enoc Foss MD [address] [place] [address] PCP - General Pediatrics 04/24/20 Team Status: Active Member Role Status Dates Dr. Aubree Stoll MD Family Provider Active Dr. Aubree Stoll MD Primary Care Provider Active Team Status: Inactive Member Role Status Dates Dr. Aubree Stoll MD Primary Care Provider Active Dr. Crow Patrick MD Attending Provider, Referring Pr ovider Active [employer] Interpreter Relationship Specialty Start Date End Date Enoc Foss MD [address] [place] [address] PCP - General Pediatrics 04/24/20 01/05/23 [employer] Interpreter Relationship Specialty Start Date End Date Yari Dowling MD [address] [place] [id number] PCP - General Pediatrics 01/06/23 [employer] Interpreter Relationship Specialty Start Date End Date Yari Dowling MD [address] [place] [id number] PCP - General Pediatrics 01/06/23 [employer] Interpreter Relationship Specialty Start Date End Date Yari Dowling MD [address] [place] [id number] PCP - General Pediatrics 01/06/23 [employer] Interpreter Relationship Specialty Start Date End Date Yari Dowling MD [address] [place] [id number] PCP - General Pediatrics 01/06/23 [employer] Interpreter Relationship Specialty Start Date End Date Yari Dowling MD [address] [place], [place] [phone] PCP - General Pediatrics 01/06/23 [employer] Interpreter Relationship Specialty Start Date End Date Yari Dowling MD [address] [place], [place] [id number] PCP - General Pediatrics 01/06/23 [employer] Interpreter Relationship Specialty Start Date End Date Yari Dowling MD PCP - General Pediatrics 01/06/23 [employer] Interpreter Relationship Specialty Start Date End Date Yari Dowling MD PCP - General Pediatrics 01/06/23 [employer] Interpreter Relationship Specialty Start Date End Date Yari Dowling MD PCP - General Pediatrics 01/06/23 [employer]otive [employer] Interpreter Relationship Specialty Start Date End Date Yari Dowling MD PCP - General Pediatrics 01/06/23 [employer]otive [employer] Interpreter Relationship Specialty Start Date End Date Yari Dowling MD PCP - General Pediatrics 01/06/23 Goals (unrecognized section and content) Goals may be documented in a n alternate section FOR RECORDS PERTAINING TO PATIENTS WHO ARE OR HAVE BEEN ENROLLED IN A CHEMICAL DEPENDENCY/SUBSTANCEABUSE PROGRAM, SOME INFORMATION MAY BE OMITTED. This clinical summary was aggregated from multiple sources. Caution should be exercised in using it in the provision of clinical care. This summary normalizes information from multiple sources, and as a consequence, information in this document may materially change the coding, format and clinical context of patient data. In addition, data may be omitted in some cases. CLINICAL DECISIONS SHOULD BE BASED ON THE PRIMARY CLINICAL RECORDS. [facility]. provides no warranty or guarantee of the accuracy or completeness of information in this document.
[2025-01-22] MEDS: 0.9% Normal Saline (1000mL) 1,000 ML 999 ML IV (22:14)
[2025-01-22 22:27] LABS: Hematocrit 39.6 % (37-47); Hemoglobin 13.0 g/dL (12.0-15.0); Immature Granulocytes Count 0.020 X10^3/uL (0.0-0.0); Mean Corp Hgb Conc 32.8 g/dL (32-36); Mean Corpuscular Volume 88.6 fL (81-99); Mean Platelet Vol. 9.0 fl (6.2-12.0); NRBC Flagged by Analyzer 0 % (0-5); Platelet Count 415 K/mm3 (150-450); RBC Distribution Width CV 13.0 % (11.6-14.6); RBC Distribution Width SD 42.1 fl (35.1-43.9); Red Blood Count 4.47 M/mm3 (4.2-5.4); White Blood Count 7.7 K/mm3 (4.4-11.0)
[2025-01-22 22:50] LABS: AST(SGOT) 20 U/L (<=31); Alanine Aminotransfer ALT/SGPT 21 U/L (<=34); Albumin, Serum 4.4 g/dL (3.5-5.0); Alkaline Phosphatase 83 U/L (35-104); Anion Gap 11 (5-15); BUN 9 mg/dL (4-19); BUN/Creat Ratio 13.9 RATIO (10-20); Calcium,Total 9.5 mg/dL (7.6-11.0); Carbon Dioxide 21.4 mmol/L (21.0-32.0); Chloride 109 mmol/L (98-108); Estimated Creatinine Clearance 186.93 ml/min (50-250); Globulin 3.1 g/dL (2.2-4.2); Glucose 107 mg/dL (70-99); Lipase 38 U/L (13-75); Potassium 3.8 mmol/L (3.3-5.1)
[2025-01-22 23:00] VITALS: PULSE 90; RESP 18; O2SAT 98
[2025-01-22 23:05] LABS: Internal QC Validated? YES +Cl - CLEAR BKGD; Pregnancy, Serum, hCG Quali. NEGATIVE Negative; Record Kit Lot#, Serum Preg. 980607
[2025-01-22 23:13] LABS: Red Blood Cells-Urine 0 SEEN /hpf (0-5)
[2025-01-22 23:14] LABS: Color, Urine Yellow (Yellow); Glucose, Dipstick Normal (Normal); Ketone-Dipstick Negative (Negative); Leukocyte Esterase-Dipstick 100 /ul (Negative); Nitrite-Dipstick Negative (Negative); Occult Blood-Urine Negative /ul (Negative); Protein-Dipstick 30 mg/dl (Negative); Specific Gravity, Urine 1.025 (1.002-1.030); Urine Bilirubin Dipstick Negative (Negative)
[2025-01-22 23:36] LABS: Squamous Epithelial Cells - UA 5-10 SEEN /hpf (5-10); Transitional Epithelial - Ur 0-5 SEEN /hpf (0-5)
[2025-01-22 23:37] LABS: Mucous, Urine 1+ /hpf (<or=2+)
[2025-01-23 01:00] VITALS: BP 130/86; O2SAT 98
[2025-01-23 01:21] VITALS: BP 130/86; PULSE 73; RESP 13; TEMP 36.6; O2SAT 99
== END 2025-01-23 01:22 | disposition home or self-care (01) ==
PROVIDERS: Emergency Provider Surgery; Visit Provider Surgery
DX: K62.5 Hemorrhage of anus and rectum (principal); K59.00 Constipation, unspecified; R10.9 Unspecified abdominal pain; Z79.899 Other long term (current) drug therapy
CPT/HCPCS: 74177; 80053; 81001; 82274; 83605; 83690; 84703; 85025; 87086; 87088; 96360; 99282; Q9967; A4216